=== PATIENT | male | born 1945 | race Caucasian/White ===

== ENCOUNTER 2024-05-12 08:40 | Inpatient (IN) | payer MEDICARE, OTHER, SELFPAY ==
[2024-05-12] VITALS (15 sets, daily range): BP systolic 100–138; BP diastolic 51–67; PULSE 6–62; RESP 16–28; TEMP 35.7–37.4; O2SAT 87–100; BMI 34.1; BMI 32.7
[2024-05-12] MEDS: 0.9% Normal Saline (1000mL) 1,000 ML 999 ML IV ×3 (09:24→13:31)
[2024-05-12] MEDS: Ceftriaxone 2 GM in 0.9% Normal Saline (50mL MB+) 50 ML IV (09:24)
[2024-05-12 09:34] LABS: Absolute Lymphocyte Count 1.67 X10^3/uL (0.83-4.51); Absolute Neutrophil Count 11.3 X10^3/uL (2.0-7.7); Basophil# 0.03 X10^3/uL; Basophil% 0.2 % (0-1); Eosinophil# 0.01 X10^3/uL; Eosinophils% 0.1 % (0-5); Hematocrit 37.4 % (40-54); Hemoglobin 11.9 g/dL (13.0-16.5); Lymphocyte # 1.67 X10^3/ul (0.83-4.51); Lymphocyte % 11.7 % (19-41); Mean Corp Hgb Conc 31.8 g/dL (32-36); Mean Corpuscular Hgb 28.4 pg (27.0-32.0); Mean Corpuscular Volume 89.3 fL (80-94); Monocyte# 1.23 X10^3/uL; Monocyte% 8.6 % (0-10); NRBC Flagged by Analyzer 0 % (0-5); Neutrophil # 11.32 X10^3/uL (2.7-7.7); Platelet Count 145 K/mm3 (150-450); RBC Distribution Width CV 15.3 % (11.6-14.6); RBC Distribution Width SD 50.4 fl (35.1-43.9); Red Blood Count 4.19 M/mm3 (4.6-6.2); White Blood Count 14.3 K/mm3 (4.4-11.0)
[2024-05-12 09:43] LABS: International Normalized Ratio 1.3; Prothrombin Time (Protime)PT. 16.1 SECONDS (11.7-14.9)
[2024-05-12 09:44] LABS: Partial Thromboplast Time 30.5 Seconds (24.1-36.2)
[2024-05-12 09:49] LABS: ALB/GLOB Ratio 0.8 RATIO (0.9-2.4); AST(SGOT) 28 U/L (15-37); Alanine Aminotransfer ALT/SGPT 60 U/L (16-61); Albumin, Serum 3.4 g/dL (3.2-5.0); Alkaline Phosphatase 77 U/L (45-117); Anion Gap 6 (5-15); BUN 22 mg/dL (7-18); BUN/Creat Ratio 25.4 RATIO (10-20); Calcium,Total 10.1 mg/dL (8.5-10.1); Chloride 105 mmol/L (98-107); Creatinine, Serum 0.87 mg/dL (0.70-1.30); EST Glomerular Filtration Rate 90 mL/min (>60); Est Glom Filt Rate - Afr Amer 109 mL/min (>60); Estimated Creatinine Clearance 89.35 ml/min; Globulin 4.3 g/dL (2.2-4.2); Glucose 167 mg/dL (74-106); Potassium 4.4 mmol/L (3.5-5.1); Protein, Total 7.7 g/dL (6.4-8.2); Sodium Level 138 mmol/L (136-145)
[2024-05-12 10:24] LABS: Lactic Acid 2.1 mmol/L (0.4-1.9)
[2024-05-12] MEDS: Azithromycin 500 MG in Dextrose 5%-Water (250mL Bag) 250 ML 250 MG IV (10:25)
[2024-05-12 11:04] LABS: Red Blood Cells-Urine 0 SEEN /hpf (0-5); Squamous Epithelial Cells - UA 0 SEEN /hpf (0-5)
[2024-05-12 11:08] LABS: Color, Urine Yellow (Yellow); Glucose, Dipstick Normal (Normal); Ketone-Dipstick Negative (Negative); Leukocyte Esterase-Dipstick 25 /ul (Negative); Nitrite-Dipstick Negative (Negative); Occult Blood-Urine Negative /ul (Negative); Protein-Dipstick 30 mg/dl (Negative); Urine Bilirubin Dipstick Negative (Negative); Urine Clarity Sl. Cloudy (Clear); Urine Urobilinogen Normal (Normal)
[2024-05-12 11:15] LABS: Bacteria 1+ /hpf (None Seen); Mucous, Urine 1+ /hpf (<or=2+); White Blood Cells 0-5 SEEN /hpf (0-5)
[2024-05-12 13:29] LABS: Reflex Lactate? Y
[2024-05-12] MEDS: Piperacil/Tazobactam 3.375 GM in 0.9% Normal Saline (50mL MB+) 50 ML IV ×2 (13:45→21:19)
[2024-05-12] MEDS: Vancomycin HCl 2,000 MG in 0.9% Normal Saline (500mL Bag) 500 ML 250 MG IV (13:45)
[2024-05-12] MEDS: 0.9% Normal Saline (1000mL) 1,000 ML 100 ML IV ×2 (14:30→23:25)
[2024-05-12 14:55] LABS: Lactic Acid 1.8 mmol/L (0.4-1.9)
[2024-05-12] MEDS: Gabapentin 600 MG Tablet PO (21:16)
[2024-05-12] MEDS: Menthol/Lanolin/Calamine/Znox 113 GM Tube 1 APPLIC TOPICAL (21:20)
[2024-05-12] MEDS: Miconazole Nitrate Cream 1 APPLIC TOPICAL (21:21)
[2024-05-12] MEDS: Ipratropium/Albuterol Sulfate 3 ML AMPUL.NEB INHALATION (22:00)
[2024-05-12] MEDS: Rivaroxaban 20 MG Tablet PO (22:02)
[2024-05-12] MEDS: Acetaminophen 325 MG Tablet 650 MG PO (22:18)
[2024-05-13] MEDS: Vancomycin HCl 1,500 MG in 0.9% Normal Saline (500mL Bag) 500 ML 250 MG IV ×2 (02:53→13:05)
[2024-05-13 03:00] VITALS: BP 128/68; PULSE 58; RESP 16; TEMP 36.6; O2SAT 99
[2024-05-13 06:16] LABS: Absolute Lymphocyte Count 2.04 X10^3/uL (0.83-4.51); Absolute Neutrophil Count 5.8 X10^3/uL (2.0-7.7); Basophil# 0.02 X10^3/uL; Basophil% 0.2 % (0-1); Eosinophil# 0.09 X10^3/uL; Hematocrit 40.6 % (40-54); Hemoglobin 12.6 g/dL (13.0-16.5); Lymphocyte # 2.04 X10^3/ul (0.83-4.51); Lymphocyte % 23.4 % (19-41); Mean Corpuscular Volume 93.3 fL (80-94); Mean Platelet Vol. 10.2 fl (6.2-12.0); Monocyte# 0.76 X10^3/uL; Monocyte% 8.7 % (0-10); NRBC Flagged by Analyzer 0 % (0-5); Neutrophil # 5.79 X10^3/uL (2.7-7.7); Neutrophil % 66.4 % (47-70); POSITIVE COUNT YES; Platelet Count 91 K/mm3 (150-450); RBC Distribution Width CV 15.4 % (11.6-14.6); RBC Distribution Width SD 53.1 fl (35.1-43.9); Red Blood Count 4.35 M/mm3 (4.6-6.2); White Blood Count 8.7 K/mm3 (4.4-11.0)
[2024-05-13 06:17] LABS: Differential Indicated SCAN CRITERIA MET
[2024-05-13] MEDS: Levothyroxine 88 MCG Tablet PO (06:32)
[2024-05-13] MEDS: Piperacil/Tazobactam 3.375 GM in 0.9% Normal Saline (50mL MB+) 50 ML IV ×3 (06:34→21:21)
[2024-05-13 06:55] LABS: Anion Gap 7 (5-15); BUN 20 mg/dL (7-18); BUN/Creat Ratio 31.9 RATIO (10-20); Calcium,Total 9.2 mg/dL (8.5-10.1); Chloride 112 mmol/L (98-107); Creatinine, Serum 0.63 mg/dL (0.70-1.30); EST Glomerular Filtration Rate 131 mL/min (>60); Est Glom Filt Rate - Afr Amer 158 mL/min (>60); Estimated Creatinine Clearance 93.58 ml/min; Glucose 113 mg/dL (74-106); Potassium 4.5 mmol/L (3.5-5.1); Sodium Level 140 mmol/L (136-145)
[2024-05-13 07:05] LABS: Platelet Estimate MOD DEC (ADEQ)
[2024-05-13 09:00] VITALS: BP 131/64; PULSE 60; RESP 18; TEMP 36.7; O2SAT 100
[2024-05-13] MEDS: Menthol/Lanolin/Calamine/Znox 113 GM Tube 1 APPLIC TOPICAL ×2 (09:46→20:06)
[2024-05-13] MEDS: Miconazole Nitrate Cream 1 APPLIC TOPICAL ×2 (09:47→20:06)
[2024-05-13] MEDS: Tamsulosin HCl 0.4 MG Capsule 0.8 MG PO (09:47)
[2024-05-13] MEDS: Gabapentin 600 MG Tablet PO ×4 (09:47→20:10)
[2024-05-13] MEDS: Lidocaine 5% Patch 1 PATCH TOPICAL (09:48)
[2024-05-13] MEDS: fentaNYL 25 MCG Patch TD (10:02)
[2024-05-13 15:00] VITALS: BP 112/67; PULSE 60; RESP 18; TEMP 36.4; O2SAT 93
[2024-05-13] MEDS: Rivaroxaban 20 MG Tablet PO (20:09)
[2024-05-13 20:50] VITALS: BP 126/76; PULSE 60; RESP 18; TEMP 36.6; O2SAT 95
[2024-05-13 22:12] VITALS: PULSE 60; RESP 23; O2SAT 98
[2024-05-14 02:03] LABS: Vancomycin, Trough Level 12.1 ug/mL (5.0-15.0)
[2024-05-14] MEDS: Vancomycin HCl 1,750 MG in 0.9% Normal Saline (500mL Bag) 500 ML 250 MG IV (02:21)
[2024-05-14 03:30] VITALS: BP 128/78; PULSE 57; RESP 18; TEMP 36.9; O2SAT 99
[2024-05-14] MEDS: Levothyroxine 88 MCG Tablet PO (03:58)
[2024-05-14] MEDS: Piperacil/Tazobactam 3.375 GM in 0.9% Normal Saline (50mL MB+) 50 ML IV (05:42)
[2024-05-14 07:21] VITALS: O2SAT 94
[2024-05-14 09:00] VITALS: BP 123/64; PULSE 60; RESP 18; TEMP 36.6; O2SAT 96
[2024-05-14] MEDS: Menthol/Lanolin/Calamine/Znox 113 GM Tube 1 APPLIC TOPICAL (09:02)
[2024-05-14] MEDS: Gabapentin 600 MG Tablet PO (09:03)
[2024-05-14] MEDS: Tamsulosin HCl 0.4 MG Capsule 0.8 MG PO (09:03)
[2024-05-14] MEDS: Miconazole Nitrate Cream 1 APPLIC TOPICAL (09:04)
[2024-05-14 09:34] VITALS: BP 123/69; PULSE 60; RESP 18; TEMP 36.6; O2SAT 96
[2024-05-14] MEDS: levoFLOXacin 750 MG Tablet PO (10:12)
[2024-05-14] MEDS: Furosemide 20 MG Tablet PO (10:12)
== END 2024-05-14 11:32 | disposition skilled nursing facility (03) | DRG 871 ==
LOC: ED 11:21 → PCU 11:27
PROVIDERS: Admitting Provider Internal Medicine; Emergency Provider Emergency Medicine; PCP Family Medicine; Visit Provider Internal Medicine
DX: A41.9 Sepsis, unspecified organism (principal); G93.41 Metabolic encephalopathy; J15.9 Unspecified bacterial pneumonia; J44.0 Chronic obstructive pulmonary disease with (acute) lower respiratory infection; Z93.3 Colostomy status; R65.20 Severe sepsis without septic shock; K59.81 Ogilvie syndrome; Z87.891 Personal history of nicotine dependence; G89.29 Other chronic pain; R09.02 Hypoxemia; R73.9 Hyperglycemia, unspecified
CPT/HCPCS: 36415; 51702; 71045; 71046; 80048; 80053; 80202; 81001; 83605; 85025; 85610; 85730; 87040; 87070; 87086; 87205; 87449; 87631; 93005; 94640; 94660; 94668; 97162; 97166; 99252; 99285; J7030; J7040; A4216; G0463; J0696

== ENCOUNTER 2024-05-19 14:44 | Inpatient (IN) | payer MEDICARE, OTHER, SELFPAY ==
[2024-05-19] VITALS (16 sets, daily range): BP systolic 106–143; BP diastolic 48–85; PULSE 60–66; RESP 10–21; TEMP 36.5–38.2; O2SAT 88–98; BMI 31.9
--- NOTE | 2024-05-19 14:51 | EKG12_ITS ---
Test Reason : Blood Pressure : */* mmHG Vent. Rate : 60 BPM Atrial Rate : 441 BPM P-R Int : * ms QRS Dur : 166 ms QT Int : 498 ms P-R-T Axes : * 132 88 degrees QTcB Int : 498 ms Ventricular-paced rhythm Abnormal ECG Confirmed by CATALINA REYES, OLIVIA ([id number]), metropolitan editor JATIN CAMARENA ([id number]) on 05/22/2024 10:31:06 AM Referred By: Confirmed By: OLIVIA ARNOLD MD
--- NOTE | 2024-05-19 15:05 | EX.ED.DYSGE1 ---
HPI History of Present Illness Chief Complaint: Shortness of Breath Narrative Narrative: Patient is a 79-year-old male With a past medical history of fibrillation on Xarelto, hypertension, CVA, hypothyroidism, PE who presented to the emergency department the chief complaint of cough, fever and shortness of breath. Patient states that he has not been feeling well and recently last week he was diagnosed with pneumonia. He states that he completed course of antibiotics that he was prescribed. He states that he was admitted here and then [facility]. He states that when he woke up today he was not feeling his normal self and at the facility they noted that his oxygen level was low which prompted them to send him here for further evaluation management. [facility] Medical History Atrial fibrillation HTN (hypertension) Hyperlipidemia CVA (cerebral vascular accident) Hypothyroidism Pulmonary embolism Diabetes Emphysema lung Cardiomyopathy Malignant neoplasm of base of tongue Home Medications ?Medication ?Instructions ?Recorded ?Last Taken ?Type acetaminophen 500 mg capsule 1,000 mg PO Q6H pain 05/12/24 Unknown History furosemide 20 mg tablet 20 mg PO QODAY edema 05/12/24 Unknown History gabapentin 600 mg tablet 600 mg PO 4X/DAY neuropathy 05/12/24 Unknown History ipratropium 0.5 mg-albuterol 3 mg 3 ml inhalation Q4H PRN shortness 05/12/24 Unknown History (2.5 mg base)/3 mL nebulization of breath or wheezing soln levothyroxine 88 mcg tablet 88 mcg PO DAILY thyroid 05/12/24 Unknown History lidocaine 4 % topical patch 1 patch topical Q24H pain 05/12/24 Unknown History (Salonpas (lidocaine)) metoprolol succinate 25 mg 12.5 mg PO DAILY heart rate 05/12/24 Unknown History tablet,extended release 24 hr miconazole nitrate 2 % topical 1 applic topical BID yeast 05/12/24 Unknown History powder (Antifungal (miconazole)) pantoprazole 40 mg tablet,delayed 40 mg PO DAILY acid reflux 05/12/24 Unknown History release polyvinyl alcohol-povidone (PF) 1 drp EACH EYE Q60M PRN dry eye(s) 05/12/24 Unknown History 1.4 %-0.6 % eye drops in a dropperette rivaroxaban 20 mg tablet (Xarelto) 20 mg PO QHS blood thinner 05/12/24 Unknown History tamsulosin 0.4 mg capsule 0.8 mg PO DAILY prostate 05/12/24 Unknown History fentanyl 25 mcg/hr transdermal 25 mcg transdermal Q3D 3 days #1 ea 05/14/24 Unknown Rx patch levofloxacin 750 mg tablet 750 mg PO DAILY #1 TAB 05/14/24 Unknown Rx azithromycin 250 mg tablet 250 mg PO DAILY 05/19/24 Unknown History buprenorphine HCl 300 mcg buccal 300 mcg buccal Q12H 05/19/24 Unknown History film (Belbuca) Allergy/AdvReac Type Severity Reaction Status Date / Time No Known Allergies Allergy Verified 05/12/24 12:27 Social History Smoking Status: Former smoker ROS ROS ED ROS Narrative Constitutional: Complains of fever and chills denies any headaches, lightness, dizziness Cardiovascular: Denies chest pain or palpitations Respiratory: Complains of cough with increased sputum production as well as shortness of breath Abdomen: Denies any abdominal pain nausea vomit diarrhea states he does have colostomy with normal output : Denies any urinary symptoms Neurological: Denies any numbness, wheeze, tingling Musculoskeletal: Denies back pain Skin: Denies rashes or lesions EXAM Physical Exam Narrative Exam Narrative: General: Patient was lying in bed rest comfortably did not appear to be acute distress Head: Atraumatic, normocephalic Eyes: PERRL by, EOMI by, no conjunctival injection noted Neck: Soft, supple, trachea midline Cardiovascular: Regular rate and rhythm no murmurs gallops rubs noted Respiratory: Patient has crackles noted bilaterally at the bases of his lungs no wheezing noted Abdomen: Soft, nondistended, nontender to palpation, colostomy in place with adequate output stoma pink Extremities: +5/5 strength noted in the bilateral upper and lower extremities, no pedal edema on exam, radial pulses +2/4 in the bilateral upper extremities Neurological: Patient following commands knew that he was at [facility] there is 2023 Skin: Warm, dry, intact Const Vital Signs: 05/19/24 14:45 05/19/24 14:50 05/19/24 14:52 Temperature 100.7 F H 100.7 F H Temperature Source Oral Oral Pulse Rate 65 62 Respiratory Rate 10 L 19 H Respiratory Effort Short of Breath Respiratory Depth Normal Respiratory Pattern Normal Blood Pressure 128/70 H 125/60 H Blood Pressure Mean 89 81 Pulse Ox 92 94 Oxygen Delivery Method Room Air Room Air Room Air Oxygen Flow Rate (L/min) 05/19/24 14:54 05/19/24 14:58 05/19/24 15:01 Temperature Temperature Source Pulse Rate Respiratory Rate Respiratory Effort Respiratory Depth Respiratory Pattern Blood Pressure Blood Pressure Mean Pulse Ox 93 88 94 Oxygen Delivery Method Room Air Room Air Nasal Cannula Oxygen Flow Rate (L/min) 2 05/19/24 15:50 05/19/24 16:00 05/19/24 17:00 Temperature 100.7 F H 99.7 F H 99.7 F H Temperature Source Oral Oral Oral Pulse Rate 60 62 60 Respiratory Rate 21 H 12 18 Respiratory Effort Respiratory Depth Respiratory Pattern Blood Pressure 114/48 L 114/48 L 143/85 H Blood Pressure Mean 70 70 104 Pulse Ox 95 93 95 Oxygen Delivery Method Nasal Cannula Nasal Cannula Nasal Cannula Oxygen Flow Rate (L/min) 2 2 2 05/19/24 18:00 05/19/24 18:00 Temperature 99.7 F H Temperature Source Oral Pulse Rate 60 Respiratory Rate 16 Respiratory Effort Respiratory Depth Respiratory Pattern Blood Pressure 106/55 L Blood Pressure Mean 72 Pulse Ox 88 95 Oxygen Delivery Method Nasal Cannula Nasal Cannula Oxygen Flow Rate (L/min) 2 2 MDM MDM MDM Narrative Medical decision making narrative: Patient is a 79-year-old male who presented to the emerged part with chief complaint of cough, shortness of breath and hypoxia. Patient will have a workup performed here on the differential diagnose includes but not limited to pneumonia, ACS, UTI, empyema. Once workup is obtained reviewed he will be reevaluated. Patient be given 30 cc/kg bolus of IV fluids. Patient discharge summary from 05/14/2024 was reviewed and patient was initially brought here from the rehab service that he was added secondary to hypoxia and shortness of breath. 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 He was found to have bilateral pneumonia was treated with IV antibiotics and was ultimately discharged back to the facility. Patient CBC reviewed and showed no evidence leukocytosis white blood count normal 5.8, hemoglobin 10.9, platelet count was noted to be 119. Patient's INR was 1.7, PT of 19.7 was on Xarelto, sodium was 135, potassium low at 4.1, creatinine normal at 0.70. Patient's proBNP elevated to 33, troponin was notably normal at 41. Patient's EKG reviewed and independently interpreted by myself showed a ventricular paced rhythm with a rate of 60 bpm no Sgarbossa criteria met. Patient's AST and ALT were normal at 23 and 50 respectively. Patient's urinalysis reviewed showed 100 leukocyte esterase 10-25 white blood cells but no bacteria noted this will be sent for culture. Given the patient has a fever and no identifiable source of infection will cover with Rocephin for now and follow-up on urine culture. Patient's chest x-ray reviewed and showed stable findings of mild interstitial congestion/edema. Patient did desaturate while on oxygen to 88%. We will admit the patient to the hospital for likely CHF exacerbation as he has 2+ pitting edema also in the bilateral lower extremities he will be given 40 mg of IV Lasix and we will hold off on further IV fluids. Patient's case will be discussed with hospitalist. Discussed case with hospitalist Dr. Griffin who accept patient for admission. Patient was notified with all question concerns answered at bedside. Lab Data Labs: Laboratory Results - last 24 hr 05/19/24 05/19/24 15:26 16:25 WBC 5.8 RBC 3.83 L Hgb 10.9 L Hct 34.2 L MCV 89.3 MCH 28.5 MCHC 31.9 L RDW Std Deviation 50.0 H RDW Coeff of Michelle 15.3 H Plt Count 119 L MPV 9.6 Immature Gran % (Auto) 0.500 Neut % (Auto) 72.9 H Lymph % (Auto) 19.1 [place] % (Auto) 7.1 Eos % (Auto) 0.2 Baso % (Auto) 0.2 Absolute Neuts (auto) 4.2 Absolute Lymphs (auto) 1.11 Nucleated RBC % 0 PT 19.7 H INR 1.7 APTT 40.2 H Sodium 135 L Potassium 4.1 Chloride 105 Carbon Dioxide 26.0 Anion Gap 4 L BUN 21 H Creatinine 0.70 Estim Creat Clear Calc 119.84 Est GFR (MDRD) Af Amer 139 Est GFR (MDRD) Non-Af 115 BUN/Creatinine Ratio 29.9 H Glucose 110 H Lactic Acid 1.7 Calcium 9.8 Total Bilirubin 1.40 H AST 23 ALT 50 Alkaline Phosphatase 86 Troponin I High Sens 41 B-Natriuretic Peptide 233.1 H Total Protein 6.9 Albumin 2.9 L Globulin 4.0 Albumin/Globulin Ratio 0.7 L Urine Color Yellow Urine Clarity Clear Urine pH 5.0 Ur Specific [place] 1.025 Urine Protein 30 H Urine Glucose (UA) Normal Urine Ketones Negative Urine Occult Blood Negative Urine Nitrite Negative Urine Bilirubin Negative Urine Urobilinogen Normal Ur Leukocyte Esterase 100 H Urine RBC 0 SEEN Urine WBC 10-25 SEEN Ur Squamous Epith Cells 0 SEEN Urine Bacteria 0 SEEN Urine Mucus 1+ Radiography Diagnostic Testing: Clinical Impression(s) from Imaging Studies Chest X-Ray 05/19/24 15:35 IMPRESSION: Stable findings of mild interstitial edema/congestive failure. Follow-up chest imaging to resolution recommended. No acute or emergent finding. Electronically Signed: Omar Boles MD at 15:47 EST Reading Location ID and State: [address] [place] [address] , Service support , Discharge Plan Triage Chief Complaint: Shortness of Breath ED Provider: Haja Ramachandran Dx/Rx/DC Orders Clinical Impression: Hypoxia, CHF (congestive heart failure) Prescriptions: No Action furosemide 20 mg tablet 20 mg PO QODAY ipratropium-albuterol 0.5 mg-3 mg(2.5 mg base)/3 mL solution for nebulization 3 ml inhalation Q4H PRN (Reason: shortness of breath or wheezing) acetaminophen 500 mg capsule 1,000 mg PO Q6H polyvinyl alcohol-povidon(PF) 1.4-0.6 % dropperette 1 drp EACH EYE Q60M PRN (Reason: dry eye(s)) lidocaine [Salonpas (lidocaine)] 4 % adhesive patch,medicated 1 patch topical Q24H Patient Comments: nay knees, rt hip, neck, lower back Rx Instructions: may leave on for up to 12 hrs miconazole nitrate [Antifungal (miconazole)] 2 % powder 1 applic topical BID Patient Comments: groin gabapentin 600 mg tablet 600 mg PO 4X/DAY pantoprazole 40 mg tablet,delayed release (DR/EC) 40 mg PO DAILY tamsulosin 0.4 mg capsule 0.8 mg PO DAILY metoprolol succinate 25 mg tablet extended release 24 hr 12.5 mg PO DAILY Xarelto 20 mg tablet 20 mg PO QHS levothyroxine 88 mcg tablet 88 mcg PO DAILY fentanyl 25 mcg/hr Patch 72 Hour 25 mcg transdermal Q3D 3 Days Qty: 1 0RF levofloxacin 750 mg tablet 750 mg PO DAILY Qty: 1 0RF Rx Instructions: Start on 05/15/2024-administer for 5 days azithromycin 250 mg tablet 250 mg PO DAILY Rx Instructions: start on day 2 of therapy buprenorphine HCl [Belbuca] 300 mcg film 300 mcg buccal Q12H Primary Care Provider: Primitivo Calle Referrals: Primitivo Calel MD [Primary Care Provider] - Print Language: Libyan Disposition Disposition: Acute Care Hospital [facility]
[2024-05-19] MEDS: Acetaminophen 500 MG Tablet 1000 MG PO (15:11)
--- NOTE | 2024-05-19 15:35 | RAD_ITS ---
STUDY: X-RAY CHEST REASON FOR EXAM: Male, 79 years old. Shortness of breath. Cough. TECHNIQUE: Frontal and lateral views of the chest. COMPARISON: May 14, 2024 FINDINGS: Stable cardiomegaly, dual lead cardiac pacer, aortic tortuosity, prominent central pulmonary arteries, mild hyperinflation, diffuse interstitial pattern and bilateral pleural effusions. No change in diffuse thoracic osteopenia and mild spondylosis. No abnormality of the visualized soft tissue structures of the upper abdomen. RAD/Chest PA and Lateral IMPRESSION: Stable findings of mild interstitial edema/congestive failure. Follow-up chest imaging to resolution recommended. No acute or emergent finding. Electronically Signed: Omar Boles MD at 15:47 EST ,
[2024-05-19 15:40] LABS: Absolute Lymphocyte Count 1.11 X10^3/uL (0.83-4.51); Absolute Neutrophil Count 4.2 X10^3/uL (2.0-7.7); Basophil# 0.01 X10^3/uL; Basophil% 0.2 % (0-1); Eosinophil# 0.01 X10^3/uL; Eosinophils% 0.2 % (0-5); Hematocrit 34.2 % (40-54); Hemoglobin 10.9 g/dL (13.0-16.5); Lymphocyte # 1.11 X10^3/ul (0.83-4.51); Lymphocyte % 19.1 % (19-41); Mean Corp Hgb Conc 31.9 g/dL (32-36); Mean Corpuscular Hgb 28.5 pg (27.0-32.0); Mean Corpuscular Volume 89.3 fL (80-94); Mean Platelet Vol. 9.6 fl (6.2-12.0); Monocyte# 0.41 X10^3/uL; Monocyte% 7.1 % (0-10); NRBC Flagged by Analyzer 0 % (0-5); Neutrophil # 4.24 X10^3/uL (2.7-7.7); Neutrophil % 72.9 % (47-70); Platelet Count 119 K/mm3 (150-450); RBC Distribution Width CV 15.3 % (11.6-14.6); Red Blood Count 3.83 M/mm3 (4.6-6.2); White Blood Count 5.8 K/mm3 (4.4-11.0)
[2024-05-19] MEDS: 0.9% Normal Saline (1000mL) 1,000 ML 999 ML IV (15:47)
[2024-05-19 15:48] LABS: International Normalized Ratio 1.7; Prothrombin Time (Protime)PT. 19.7 SECONDS (11.7-14.9)
[2024-05-19 15:49] LABS: Partial Thromboplast Time 40.2 Seconds (24.1-36.2)
[2024-05-19 15:55] LABS: ALB/GLOB Ratio 0.7 RATIO (0.9-2.4); AST(SGOT) 23 U/L (15-37); Alanine Aminotransfer ALT/SGPT 50 U/L (16-61); Albumin, Serum 2.9 g/dL (3.2-5.0); Alkaline Phosphatase 86 U/L (45-117); Anion Gap 4 (5-15); BUN 21 mg/dL (7-18); BUN/Creat Ratio 29.9 RATIO (10-20); Calcium,Total 9.8 mg/dL (8.5-10.1); Chloride 105 mmol/L (98-107); EST Glomerular Filtration Rate 115 mL/min (>60); Est Glom Filt Rate - Afr Amer 139 mL/min (>60); Estimated Creatinine Clearance 119.84 ml/min; Glucose 110 mg/dL (74-106); Potassium 4.1 mmol/L (3.5-5.1); Protein, Total 6.9 g/dL (6.4-8.2); Sodium Level 135 mmol/L (136-145); Troponin-I HS 41 pg/mL (3.0-78.0)
[2024-05-19 16:01] LABS: Lactic Acid 1.7 mmol/L (0.4-1.9)
[2024-05-19 16:34] LABS: Bacteria 0 SEEN /hpf (None Seen); Red Blood Cells-Urine 0 SEEN /hpf (0-5); Squamous Epithelial Cells - UA 0 SEEN /hpf (0-5)
--- NOTE | 2024-05-19 16:55 | ED.RN ---
This RN spoke with Nurse Thapa at the [facility] and updated her on this patient.
[2024-05-19 17:19] LABS: Color, Urine Yellow (Yellow); Glucose, Dipstick Normal (Normal); Ketone-Dipstick Negative (Negative); Leukocyte Esterase-Dipstick 100 /ul (Negative); Nitrite-Dipstick Negative (Negative); Occult Blood-Urine Negative /ul (Negative); Protein-Dipstick 30 mg/dl (Negative); Specific Gravity, Urine 1.025 (1.002-1.030); Urine Bilirubin Dipstick Negative (Negative); Urine Clarity Clear (Clear); Urine Urobilinogen Normal (Normal)
[2024-05-19 17:22] LABS: BNP,B-Type NATRIURETIC PEPTIDE 233.1 pg/mL (0-100)
[2024-05-19 17:44] LABS: Mucous, Urine 1+ /hpf (<or=2+); White Blood Cells 10-25 SEEN /hpf (0-5)
[2024-05-19] MEDS: Furosemide 40 MG/4 ML Vial IV (18:09)
[2024-05-19] MEDS: Ceftriaxone 1 GM/50 ML BAG IV (18:16)
--- NOTE | 2024-05-19 19:20 | HP.PCM.HOS_ITS ---
HPI - General General Date of Admission: 05/19/24 Date of Service: 05/19/24 Chief Complaint: Increased SOB HPI Narrative SONI COLLINS, kalli a 79 M w/ hx BPH, GERD, NARCISO w/ cpap, recent ostomy due Zakia's syndrome, hypothyroidism, PE, A-fib, CVA who presented [facility] ED 05/19/2024 with shortness of breath, decreased O2 sat, fever, cough. He was recently admitted earlier this month for sepsis secondary to pneumonia. He improved and was discharged back to the [facility] 05/14/2024. Over the past several days multiple people have been sick with upper respiratory like symptoms and he has also had progressively worsening shortness of breath, cough and fever over the past week. In the ED patient 88% on 2 L despite not using oxygen regularly, also had slightly elevated BNP of 233 on chest x-ray suggestive of fluid overload as well as peripheral edema. Patient was also febrile with a temperature of 100.7. COVID was negative, white blood cell count within normal limits and no other infectious etiology identified. Was felt the patient did have component of fluid overload so he was given 40IV lasix. Hospitalist contacted for admission. Patient evaluated with at bedside. 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 Admitted earlier this month for pneumonia and had been doing fairly well but over the past several days has had a fever with increased shortness of breath and cough and was found to be hypoxic at the [facility]. Patient report several other people have also developed URI symptoms and is felt that may be a virus is currently going around. Patient reports some nasal congestion, no abdominal pain, does have swelling in his lower extremities bilaterally does not feel his Lasix have been particularly helpful with this. ROS otherwise fairly unremarkable [facility] Medical History (Updated 05/19/24 @ 19:20 by Mara Alejandro) Atrial fibrillation Cardiomyopathy COPD (chronic obstructive pulmonary disease) CPAP (continuous positive airway pressure) dependence CVA (cerebral vascular accident) Diabetes Emphysema lung Former smoker HTN (hypertension) Hyperlipidemia Hypothyroidism Kidney stones Malignant neoplasm of base of tongue On home oxygen therapy Pacemaker Pulmonary embolism TIA (transient ischemic attack) Home Medications ?Medication ?Instructions ?Recorded ?Last Taken ?Type acetaminophen 500 mg capsule 1,000 mg PO Q6H pain 05/12/24 Unknown History furosemide 20 mg tablet 20 mg PO QODAY edema 05/12/24 Unknown History gabapentin 600 mg tablet 600 mg PO 4X/DAY neuropathy 05/12/24 Unknown History ipratropium 0.5 mg-albuterol 3 mg 3 ml inhalation Q4H PRN shortness 05/12/24 Unknown History (2.5 mg base)/3 mL nebulization of breath or wheezing soln levothyroxine 88 mcg tablet 88 mcg PO DAILY thyroid 05/12/24 Unknown History lidocaine 4 % topical patch 1 patch topical Q24H pain 05/12/24 Unknown History (Salonpas (lidocaine)) metoprolol succinate 25 mg 12.5 mg PO DAILY heart rate 05/12/24 Unknown History tablet,extended release 24 hr miconazole nitrate 2 % topical 1 applic topical BID yeast 05/12/24 Unknown History powder (Antifungal (miconazole)) pantoprazole 40 mg tablet,delayed 40 mg PO DAILY acid reflux 05/12/24 Unknown History release polyvinyl alcohol-povidone (PF) 1 drp EACH EYE Q60M PRN dry eye(s) 05/12/24 Unknown History 1.4 %-0.6 % eye drops in a dropperette rivaroxaban 20 mg tablet (Xarelto) 20 mg PO QHS blood thinner 05/12/24 Unknown History tamsulosin 0.4 mg capsule 0.8 mg PO DAILY prostate 05/12/24 Unknown History fentanyl 25 mcg/hr transdermal 25 mcg transdermal Q3D 3 days #1 ea 05/14/24 Unknown Rx patch levofloxacin 750 mg tablet 750 mg PO DAILY #1 TAB 05/14/24 Unknown Rx azithromycin 250 mg tablet 250 mg PO DAILY 05/19/24 Unknown History buprenorphine HCl 300 mcg buccal 300 mcg buccal Q12H 05/19/24 Unknown History film (Belbuca) Allergy/AdvReac Type Severity Reaction Status Date / Time No Known Allergies Allergy Verified 05/12/24 12:27 Social History Smoking Status: Former smoker ROS ROS Narrative General: Has had fever over the past couple of days HENT: Denies headache, has had some nasal congestion EYES: Denies changes in vision Resp: Increased cough, increased shortness of breath Cardiac: Denies chest pain GI: Denies abdominal pain, has ostomy, denies nausea/vomiting : Denies changes in urination Extremity: Some lower extremities MSK: Denies weakness Neuro: Denies any numbness/tingling Heme: Denies any bleeding or bruising Skin: Denies rashes Psychiatric: No complaints voiced Vital Signs Vital Signs Vital Signs: 05/19/24 14:45 05/19/24 14:50 05/19/24 14:52 Temperature 100.7 F H 100.7 F H Temperature Source Oral Oral Pulse Rate 65 62 Respiratory Rate 10 L 19 H Respiratory Effort Short of Breath Respiratory Depth Normal Respiratory Pattern Normal Blood Pressure 128/70 H 125/60 H Blood Pressure Mean 89 81 Pulse Ox 92 94 Oxygen Delivery Method Room Air Room Air Room Air Oxygen Flow Rate (L/min) 05/19/24 14:54 05/19/24 14:58 05/19/24 15:01 Temperature Temperature Source Pulse Rate Respiratory Rate Respiratory Effort Respiratory Depth Respiratory Pattern Blood Pressure Blood Pressure Mean Pulse Ox 93 88 94 Oxygen Delivery Method Room Air Room Air Nasal Cannula Oxygen Flow Rate (L/min) 2 05/19/24 15:50 05/19/24 16:00 05/19/24 17:00 Temperature 100.7 F H 99.7 F H 99.7 F H Temperature Source Oral Oral Oral Pulse Rate 60 62 60 Respiratory Rate 21 H 12 18 Respiratory Effort Respiratory Depth Respiratory Pattern Blood Pressure 114/48 L 114/48 L 143/85 H Blood Pressure Mean 70 70 104 Pulse Ox 95 93 95 Oxygen Delivery Method Nasal Cannula Nasal Cannula Nasal Cannula Oxygen Flow Rate (L/min) 2 2 2 05/19/24 18:00 05/19/24 18:00 05/19/24 18:56 Temperature 99.7 F H 99.1 F Temperature Source Oral Pulse Rate 60 62 Respiratory Rate 16 18 Respiratory Effort Respiratory Depth Respiratory Pattern Blood Pressure 106/55 L 119/66 Blood Pressure Mean 72 83 Pulse Ox 88 95 95 Oxygen Delivery Method Nasal Cannula Nasal Cannula Oxygen Flow Rate (L/min) 2 2 05/19/24 19:00 Temperature 99.1 F Temperature Source Oral Pulse Rate 62 Respiratory Rate 18 Respiratory Effort Respiratory Depth Respiratory Pattern Blood Pressure 119/66 Blood Pressure Mean 83 Pulse Ox 97 Oxygen Delivery Method Nasal Cannula Oxygen Flow Rate (L/min) 2 Weight Weight: 117 kg Body Mass Index (BMI) 0.1 Physical Exam Narrative General: Alert, oriented, no apparent distress HEENT: Atraumatic, normocephalic Eyes: Anicteric, normal conjunctiva, extraocular movements grossly intact Neck: Supple Respiratory: Crackles at the bases, some increased work of breathing Cardiovascular: Regular rate and rhythm GI: Soft, nontender, nondistended, ostomy in place Extremities: 2+ bilateral lower extremity pitting edema Musculoskeletal: Moving all extremities Neuro: No overt focal neurological deficits Skin: No rashes appreciated Psych: Cooperative Results Lab / Micro Data 05/19/24 15:26 05/19/24 15:26 Labs: Laboratory Results - last 24 hr 05/19/24 15:26: WBC 5.8, RBC 3.83 L, Hgb 10.9 L, Hct 34.2 L, MCV 89.3, MCH 28.5, MCHC 31.9 L, RDW Std Deviation 50.0 H, RDW Coeff of Michelle 15.3 H, Plt Count 119 L, MPV 9.6, Immature Gran % (Auto) 0.500, Neut % (Auto) 72.9 H, Lymph % (Auto) 19.1, [place] % (Auto) 7.1, Eos % (Auto) 0.2, Baso % (Auto) 0.2, Absolute Neuts (auto) 4.2, Absolute Lymphs (auto) 1.11, Nucleated RBC % 0, PT 19.7 H, INR 1.7, APTT 40.2 H, Sodium 135 L, Potassium 4.1, Chloride 105, Carbon Dioxide 26.0, A nion Gap 4 L, BUN 21 H, Creatinine 0.70, Estim Creat Clear Calc 119.84, Est GFR (MDRD) Af Amer 139, Est GFR (MDRD) Non-Af 115, BUN/Creatinine Ratio 29.9 H, G lucose 110 H, Lactic Acid 1.7, Calcium 9.8, Total Bilirubin 1.40 H, AST 23, ALT 50, Alkaline Phosphatase 86, Troponin I High Sens 41, B-Natriuretic Peptide 233.1 H, Total Protein 6.9, Albumin 2.9 L, Globulin 4.0, Albumin/Globulin Ratio 0.7 L 05/19/24 16:25: Urine Color Yellow, Urine Clarity Clear, Urine pH 5.0, Ur Specific [place] 1.025, Urine Protein 30 H, Urine Glucose (UA) Normal, Urine Ketones Negative, Urine Occult Blood Negative, Urine Nitrite Negative, Urine Bilirubin Negative, Urine Urobilinogen Normal, Ur Leukocyte Esterase 100 H, Urine RBC 0 SEEN, Urine WBC 10-25 SEEN, Ur Squamous Epith Cells 0 SEEN, Urine Bacteria 0 SEEN, Urine Mucus 1+ Micro: Microbiology 05/19/24 15:26 Mucosa - Nose SARS-CoV-2, Influenza & RSV (PCR) - Final Imaging Radiology Impression Chest X-Ray 05/19/24 15:35 IMPRESSION: Stable findings of mild interstitial edema/congestive failure. Follow-up chest imaging to resolution recommended. No acute or emergent finding. Electronically Signed: Omar Boles MD at 15:47 EST , Assessment & Plan Assessment/Plan (1) Hypoxia: PLAN: Plan # Hypoxia, suspect component of fluid overload and possible viral etiology illness as well -Admit to telemetry -BNP 233 -CXR concerning for some vascular congestion -Continue IV lasix -Will order echo -Daily weights, I's and O's -Fluid restriction, heart healthy diet -Given patient's increased cough and fevers well with multiple sick contacts suspect that there is viral component, will check respiratory panel and continue nebs -Additionally patient with 1 more day of antibiotics for his pneumonia from discharge 05/14 # 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
--- NOTE | 2024-05-19 21:42 | ECHOCS_ITS ---
Reason For Study: CHF Procedure This was a 2D Doppler, Color Flow transthoracic echocardiogram. The study was technically difficult. Contrast injection was performed. Exam performed portable in patient room. Left Ventricle Normal left ventricle. The estimated ejection fraction is 55-60 %. Right Ventricle Normal right ventricle. The right ventricle is normal in size, function, and thickness. Normal systolic function. Atria Normal left atrium. Normal right atrium. Mitral Valve The mitral valve is structurally normal. No prolapse or stenosis seen. Mild (1+) mitral valve insufficiency. Tricuspid Valve Normal tricuspid valve. Mild tricuspid valve insufficiency. Aortic Valve Trisinus/trileaflet aortic valve. Pulmonic Valve The pulmonic valve is not well visualized. Great Vessels Normal aortic root. Pericardium/Pleural No pericardial effusion. Medication Diluted definity 2ml given slow IV push to enhance endocardial definition. MMode/2D Measurements & Calculations LVIDd: 5.5 cm IVSd: 1.4 cm Ao root diam: 3.3 cm LVIDs: 3.8 cm LVPWd: 1.9 cm FS: 30.9 % asc Aorta Diam: 3.7 cm LAV(MOD-bp): 60.8 ml LVAd ap4: 36.3 cm2 LAV(MOD-bp) Indexed: 26.1 ml/m2 LVLd ap4: 8.6 cm LAV(MOD-sp2): 27.6 ml EDV(MOD-sp4): 123.1 ml LAV(MOD-sp4): 87.0 ml EDV(sp4-el): 129.8 ml LVAs ap4: 28.9 cm2 LVLs ap4: 9.6 cm ESV(MOD-sp4): 72.5 ml ESV(sp4-el): 74.3 ml EF(MOD-sp4): 41.1 % EF(sp4-el): 42.7 % SV(MOD-sp4): 50.6 ml SV(sp4-el): 55.5 ml LA A4 area: 29.2 cm2 SI(MOD-sp4): 21.7 ml/m2 LA dimension(2D): 4.4 cm RA A4 area: 25.4 cm2 Doppler Measurements & Calculations MV E max daysi: 84.7 cm/sec Ao V2 max: 118.6 cm/sec LV V1 max: 115.0 cm/sec Ao max P.7 mmHg LV V1 max P.4 mmHg Ao V2 mean: 74.6 cm/sec LV V1 mean P.6 mmHg Ao mean P.8 mmHg LV V1 mean: 71.9 cm/sec Ao V2 VTI: 20.0 cm LV V1 VTI: 20.4 cm AV (velocity ratio): 1.0 PA V2 max: 115.5 cm/sec TR max daysi: 291.3 cm/sec PA V2 mean: 73.4 cm/sec TR max P.0 mmHg ECHO/Echo Complete W/ Contrast Interpretation Summary The estimated ejection fraction is 55-60 %. Pacemaker lead was noted on the right side. Ordering Physician: Tabitha Griffin Referring Physician: BILLY XIONG Performed By: Elisabet Avalos RCS
[2024-05-19] MEDS: Ipratropium/Albuterol Sulfate 3 ML AMPUL.NEB INHALATION (23:31)
[2024-05-19] MEDS: Buprenorphine HCl 2 MG TAB.SUBL SL (23:53)
[2024-05-19] MEDS: Gabapentin 600 MG Tablet PO (23:53)
[2024-05-19] MEDS: guaiFENesin 1,200 MG Tablet 1200 MG PO (23:53)
[2024-05-19] MEDS: Nystatin Powder 15gm Bottle 1 APPLIC TOPICAL (23:53)
[2024-05-20] VITALS (13 sets, daily range): BP systolic 107–121; BP diastolic 62–72; PULSE 59–85; RESP 16–22; TEMP 36.2–37.3; O2SAT 91–100; BMI 31.9
[2024-05-20] MEDS: Rivaroxaban 20 MG Tablet PO ×2 (01:29→17:35)
[2024-05-20 02:03] LABS: Bedside Glucose 170 mg/dL (74-106)
[2024-05-20] MEDS: Levothyroxine 88 MCG Tablet PO (06:03)
[2024-05-20 07:00] LABS: Absolute Lymphocyte Count 1.15 X10^3/uL (0.83-4.51); Absolute Neutrophil Count 2.6 X10^3/uL (2.0-7.7); Hematocrit 32.6 % (40-54); Hemoglobin 10.1 g/dL (13.0-16.5); Lymphocyte # 1.15 X10^3/ul (0.83-4.51); Lymphocyte % 28.3 % (19-41); Mean Corpuscular Hgb 27.7 pg (27.0-32.0); Mean Corpuscular Volume 89.3 fL (80-94); Mean Platelet Vol. 10.6 fl (6.2-12.0); Monocyte# 0.28 X10^3/uL; Monocyte% 6.9 % (0-10); NRBC Flagged by Analyzer 0 % (0-5); Neutrophil # 2.61 X10^3/uL (2.7-7.7); Neutrophil % 64.3 % (47-70); Platelet Count 116 K/mm3 (150-450); RBC Distribution Width CV 15.1 % (11.6-14.6); RBC Distribution Width SD 50.3 fl (35.1-43.9); Red Blood Count 3.65 M/mm3 (4.6-6.2); White Blood Count 4.1 K/mm3 (4.4-11.0)
[2024-05-20 07:18] LABS: Anion Gap 4 (5-15); BUN 26 mg/dL (7-18); BUN/Creat Ratio 38.2 RATIO (10-20); Calcium,Total 9.8 mg/dL (8.5-10.1); Chloride 106 mmol/L (98-107); Cholesterol 103 mg/dL (200); Creatinine, Serum 0.68 mg/dL (0.70-1.30); EST Glomerular Filtration Rate 119 mL/min (>60); Est Glom Filt Rate - Afr Amer 144 mL/min (>60); Estimated Creatinine Clearance 94.13 ml/min; Glucose 130 mg/dL (74-106); High Density Lipoprotein 41 mg/dL; Potassium 4.1 mmol/L (3.5-5.1); Sodium Level 138 mmol/L (136-145); Triglycerides 50 mg/dL; Very Low Density Lipoprotein 10 mg/dL (5-40)
[2024-05-20] MEDS: Ipratropium/Albuterol Sulfate 3 ML AMPUL.NEB INHALATION ×3 (07:20→19:35)
--- NOTE | 2024-05-20 07:20 | PCM.PN.HOSP ---
Reason for Visit Reason for Visit: Diagnoses Hypoxemia (05/19/24) Subjective Subjective Patient with no acute events overnight per self and per nursing report, notes less dyspnea on supplemental oxygen therapy and no marked coughing or chest discomfort. Discussed plan of care which included continued treatment of possible concurrent heart failure exacerbation and conservative treatment of acute viral influenza A infection. Discussed given timeline he was out several days would defer any usage of Tamiflu at this time. Patient denies fevers, chills, nausea, emesis, abdominal pain. Objective Data Objective Data Vital Signs: Vital Signs Temp Pulse Resp BP Pulse Ox O2 Del Method O2 Flow Rate 97.7 F L 61 18 110/68 100 CPAP 3.5 05/20/24 05:00 05/20/24 05:00 05/20/24 05:00 05/20/24 05:00 05/20/24 05:00 05/20/24 05:00 05/20/24 05:00 Oxygen Flow Rate (L/min) 3.5 Oxygen Delivery Method CPAP Weight: 242 lb 4.608 oz Body Mass Index (BMI) 31.9 Intake & Output: Intake and Output for Last 24 Hours 05/18/24 05/19/24 05/20/24 23:59 23:59 23:59 Intake Total 1050 / 1350 300 / 300 Output Total 1650 / 1650 Balance 1050 / 50 -1350 / -1350 Lab / Micro Data 05/20/24 05:42 05/20/24 05:42 Labs: Laboratory Results - last 24 hr 05/19/24 15:26: WBC 5.8, RBC 3.83 L, Hgb 10.9 L, Hct 34.2 L, MCV 89.3, MCH 28.5, MCHC 31.9 L, RDW Std Deviation 50.0 H, RDW Coeff of Michelle 15.3 H, Plt Count 119 L, MPV 9.6, Immature Gran % (Auto) 0.500, Neut % (Auto) 72.9 H, Lymph % (Auto) 19.1, [place] % (Auto) 7.1, Eos % (Auto) 0.2, Baso % (Auto) 0.2, Absolute Neuts (auto) 4.2, Absolute Lymphs (auto) 1.11, Nucleated RBC % 0, PT 19.7 H, INR 1.7, APTT 40.2 H, Sodium 135 L, Potassium 4.1, Chloride 105, Carbon Dioxide 26.0, Anion Gap 4 L, BUN 21 H, Creatinine 0.70, Estim Creat Clear Calc 119.84, Est GFR (MDRD) Af Amer 139, Est GFR (MDRD) Non-Af 115, BUN/Creatinine Ratio 29.9 H, Glucose 110 H, Lactic Acid 1.7, Calcium 9.8, Total Bilirubin 1.40 H, AST 23, ALT 50, Alkaline Phosphatase 86, Troponin I High Sens 41, B-Natriuretic Peptide 233.1 H, Total Protein 6.9, Albumin 2.9 L, Globulin 4.0, Albumin/Globulin Ratio 0.7 L 05/19/24 16:25: Urine Color Yellow, Urine Clarity Clear, Urine pH 5.0, Ur Specific [place] 1.025, Urine Protein 30 H, Urine Glucose (UA) Normal, Urine Ketones Negative, Urine Occult Blood Negative, Urine Nitrite Negative, Urine Bilirubin Negative, Urine Urobilinogen Normal, Ur Leukocyte Esterase 100 H, Urine RBC 0 SEEN, Urine WBC 10-25 SEEN, Ur Squamous Epith Cells 0 SEEN, Urine Bacteria 0 SEEN, Urine Mucus 1+ 05/20/24 01:31: POC Glucose 170 H 05/20/24 05:42: WBC 4.1 L, RBC 3.65 L, Hgb 10.1 L, Hct 32.6 L, MCV 89.3, MCH 27.7, MCHC 31.0 L, RDW Std Deviation 50.3 H, RDW Coeff of Michelle 15.1 H, Plt Count 116 L, MPV 10.6, Immature Gran % (Auto) 0.500, Neut % (Auto) 64.3, Lymph % (Auto) 28.3, [place] % (Auto) 6.9, Eos % (Auto) 0.0, Baso % (Auto) 0.0, Absolute Neuts (auto) 2.6, Absolute Lymphs (auto) 1.15, Nucleated RBC % 0, Sodium 138, Potassium 4.1, Chloride 106, Carbon Dioxide 28.0, Anion Gap 4 L, BUN 26 H, Creatinine 0.68 L, Estim Creat Clear Calc 94.13, Est GFR (MDRD) Af Amer 144, Est GFR (MDRD) Non-Af 119, BUN/Creatinine Ratio 38.2 H, Glucose 130 H, Calcium 9.8, Triglycerides 50, Cholesterol 103, LDL Cholesterol 52, VLDL Cholesterol 10, HDL Cholesterol 41 Micro: Microbiology 05/19/24 15:26 Mucosa - Nose SARS-CoV-2, Influenza & RSV (PCR) - Final Radiography Diagnostic Testing: Radiology Impression Chest X-Ray 05/19/24 15:35 IMPRESSION: Stable findings of mild interstitial edema/congestive failure. Follow-up chest imaging to resolution recommended. No acute or emergent finding. Electronically Signed: Omar Boles MD at 15:47 EST , Physical Exam Narrative Physical Examination: General: Awake, alert, oriented x 3 and cooperative, seated upright in PCU bed in no apparent distress, notes improved less and dyspnea. Skin: Normal color, normal turgor, no icterus, no cyanosis except various abrasions, ecchymoses. HEENT: AT/NC, EOMI, PERRLA, mild dry MM. Lungs: Diminished, greater bases, mildly increased respiratory rate but no distress, minimal crackles at bases, no current wheezing, no rhonchi. Heart: Regular rate and rhythm; no gallop, rub audible. Abdomen: Soft, ostomy in place right lower quadrant with appropriate output, obese, NTTP, ND, normal BS. Extremities: No cyanosis, no clubbing, pedal to distal knee improved less than 1-2+ edema. Neurological: Patient awake, alert, oriented as noted, cognitive function intact; pupils equally reactive to light and accommodation, cranial nerves grossly normal, moving all 4 extremities, strength moderately globally decreased. Psychiatric: Affect appears fatigued otherwise normal, no acute evidence of depressive or anxiety feelings. 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 #1. Acute hypoxia suspected multifactorial, possible HFpEF exacerbation although suspect more likely secondary to Acute Viral Syndrome Influenza A illness, complicated by recent pneumonia previous to presentation, resolving with 1 additional dose of antibiotic therapy completed on day of presentation, unclear organism: Patient mated to PCU, suspected concurrent overload and viral etiology as source although BNP not markedly elevated at 233 but noted vascular congestion on chest x-ray, maintained on IV Lasix which will be continued through to 1110/24, echocardiogram with EF 55 to 60% with pacemaker leads noted on the right side thus could certainly be a component of diastolic failure, will continue monitor I's and O's. Given timeline of onset of viral symptoms will defer Tamiflu therapy. If any onset of wheezing low threshold to add steroid therapy. PT/OT/case management consulted for discharge planning. #2. Chronic COPD: Complicates presentation as noted above, will continue oxygen supplementation with wean as tolerated to room air, continue ATC duonebs, PRN albuterol, HOB, IS parameters. #3. Chronic pain syndrome, OA: Will continue lidocaine patches to the neck, R hip, BL knees, encourage offloading, continue buprenorphine patch, PT/OT/CM consulted for discharge planning. #4. History of pulmonary emboli, VTE: We will continue patient home Xarelto regimen. #5. PAF: s/p PPM, unclear if secondary to PAF but uncertain specific etiology. We will continue patient home metoprolol and Xarelto regimen. #6. History CVA: We will continue patient home Xarelto, hypertensive regimen, per current list not on statin therapy but clarifying. #7. History of Zakia syndrome: Patient s/p complete removal of the colon and ileostomy 1 to 2 months ago at [facility], complicates presentation, has ostomy in place, continue routine ostomy care. #8. Hypothyroidism: We will continue patient home levothyroxine regimen. #9. Chronic BPH with obstruction: We will continue patient home Flomax regimen. #10. GERD: We will continue patient on PPI. #11. NARCISO: Will use PAP therapy if appropriate. #12. DVT prophylaxis: Will continue home Xarelto regimen. #13. CODE status: Full Code status. Charges/Coding Visit Charges Inpatient E&M: 35004 Subs Hosp L2
[2024-05-20] MEDS: Menthol/Lanolin/Calamine/Znox 113 GM Tube 1 APPLIC TOPICAL ×2 (09:29→21:51)
[2024-05-20] MEDS: 0.9% Saline Lock 10 ML Syringe IV ×2 (09:30→21:50)
[2024-05-20] MEDS: Tamsulosin HCl 0.4 MG Capsule 0.8 MG PO (09:30)
[2024-05-20] MEDS: Furosemide 40 MG/4 ML Vial IV (09:30)
[2024-05-20] MEDS: levoFLOXacin 750 MG Tablet PO (09:31)
[2024-05-20] MEDS: Pantoprazole Sodium 40 MG Tablet PO (09:31)
[2024-05-20] MEDS: guaiFENesin 1,200 MG Tablet 1200 MG PO ×2 (09:31→21:50)
[2024-05-20] MEDS: Nystatin Powder 15gm Bottle 1 APPLIC TOPICAL ×2 (09:32→21:52)
[2024-05-20] MEDS: Metoprolol(XL)Succ 25 MG Tablet 12.5 MG PO (09:32)
[2024-05-20] MEDS: Lidocaine 5% Patch 1 PATCH TOPICAL (09:33)
[2024-05-20] MEDS: Gabapentin 600 MG Tablet PO ×4 (09:43→21:50)
[2024-05-20] MEDS: BUPRENORPHINE HCL 300 MCG BUCCAL ×2 (10:17→21:49)
--- NOTE | 2024-05-20 10:33 | CASEMGMT ---
Social Work SW met w/pt in room, confirmed plan will be to return to [place]. SNF list is not needed at this time. As per SNF paperwork on chart, pt has been there since 04/12/2024. SW sent updates in [facility] did responde that pt can return when ready. Green sheet w/transport forms on chart in anticipation of weekend discharge. DARYL Jones
[2024-05-20] MEDS: Lidocaine 5% Patch 4 PATCH TOPICAL (12:07)
[2024-05-21] VITALS (8 sets, daily range): BP systolic 96–109; BP diastolic 55–66; PULSE 60–68; RESP 16–20; TEMP 36.4–36.8; O2SAT 93–96; BMI 31.8
[2024-05-21] MEDS: Levothyroxine 88 MCG Tablet PO (06:04)
--- NOTE | 2024-05-21 07:00 | PN.HOSP_ITS ---
Reason for Visit Reason for Visit: Diagnoses Hypoxemia (05/19/24) Objective Data Objective Data Vital Signs: Vital Signs Temp Pulse Resp BP Pulse Ox O2 Del Method O2 Flow Rate 98.2 F 61 16 96/55 L 96 Nasal Cannula 3 05/21/24 04:25 05/21/24 04:25 05/21/24 04:25 05/21/24 04:25 05/21/24 04:25 05/21/24 04:25 05/21/24 04:25 Oxygen Flow Rate (L/min) 3 Oxygen Delivery Method Nasal Cannula Weight: 241 lb 10.026 oz Body Mass Index (BMI) 31.8 Intake & Output: Intake and Output for Last 24 Hours 05/19/24 05/20/24 05/21/24 23:59 23:59 23:59 Intake Total 1050 / 1350 1440 / 1440 60 / 60 Output Total 2900 / 2900 125 / 125 Balance 1050 / 50 -1460 / -1460 -65 / -65 Lab / Micro Data 05/20/24 05:42 05/20/24 05:42 Labs: Laboratory Results - last 24 hr 05/20/24 05:42: WBC 4.1 L, RBC 3.65 L, Hgb 10.1 L, Hct 32.6 L, MCV 89.3, MCH 27.7, MCHC 31.0 L, RDW Std Deviation 50.3 H, RDW Coeff of Michelle 15.1 H, Plt Count 116 L, MPV 10.6, Immature Gran % (Auto) 0.500, Neut % (Auto) 64.3, Lymph % (Auto) 28.3, [place] % (Auto) 6.9, Eos % (Auto) 0.0, Baso % (Auto) 0.0, Absolute Neuts (auto) 2.6, Absolute Lymphs (auto) 1.15, Nucleated RBC % 0, Sodium 138, Potassium 4.1, Chloride 106, Carbon Dioxide 28.0, Anion Gap 4 L, BUN 26 H, C reatinine 0.68 L, Estim Creat Clear Calc 94.13, Est GFR (MDRD) Af Amer 144, Est GFR (MDRD) Non-Af 119, BUN/Creatinine Ratio 38.2 H, Glucose 130 H, Calcium 9.8, Triglycerides 50, Cholesterol 103, LDL Cholesterol 52, VLDL Cholesterol 10, HDL Cholesterol 41 Micro: Microbiology 05/19/24 23:40 Mucosa - Nasopharyngeal Respiratory Panel (PCR) - Final Influenza A (Subtype H1) 05/19/24 15:26 Mucosa - Nose SARS-CoV-2, Influenza & RSV (PCR) - Final Radiography Diagnostic Testing: Radiology Impression Echocardiogram 05/19/24 21:42 Interpretation Summary The estimated ejection fraction is 55-60 %. Pacemaker lead was noted on the right side. Ordering Physician: Tabitha Griffin Referring Physician: BILLY XIONG Performed By: Elisabet Avalos RCS Physical Exam Narrative Physical Examination: General: Awake, alert, oriented x 3 and cooperative, seated upright in PCU bed in no apparent distress, notes improved less and dyspnea. Skin: Normal color, normal turgor, no icterus, no cyanosis except various abrasions, ecchymoses. HEENT: AT/NC, EOMI, PERRLA, mild dry MM. Lungs: Diminished, greater bases, mildly increased respiratory rate but no distress, minimal crackles at bases, no current wheezing, no rhonchi. Heart: Regular rate and rhythm; no gallop, rub audible. Abdomen: Soft, ostomy in place right lower quadrant with appropriate output, obese, NTTP, ND, normal BS. Extremities: No cyanosis, no clubbing, pedal to distal knee improved less than 1-2+ edema. Neurological: Patient awake, alert, oriented as noted, cognitive function intact; pupils equally reactive to light and accommodation, cranial nerves grossly normal, moving all 4 extremities, strength moderately globally decreased. Psychiatric: Affect appears fatigued otherwise normal, no acute evidence of depressive or anxiety feelings. Assessment & Plan Assessment/Plan (1) Hypoxia: PLAN: Plan The patient is an 79 y/o M w/ PMHx: COPD, NARCISO, Hx VTE (PE, DVT), PAF s/p PPM, Hx CVA, HTN, HLD, GERD, Hx [place]bur[place] syndrome s/p complete removal of the colon and ileostomy, Hypothyroidism, Chronic BPH with obstruction who presents to the [facility] ED on 05/20/24 with increased dyspnea, hypoxia and fever as well as cough prompting ED reevaluation. #1. Acute hypoxia suspected multifactorial, possible HFpEF exacerbation although suspect more likely secondary to Acute Viral Syndrome Influenza A illness, complicated by recent pneumonia previous to presentation, resolving with 1 additional dose of antibiotic therapy completed on day of presentation, unclear organism: Patient mated to PCU, suspected concurrent overload and viral etiology as source although BNP not markedly elevated at 233 but noted vascular congestion on chest x-ray, maintained on IV Lasix which will be continued through to , echocardiogram with EF 55 to 60% with pacemaker leads noted on the right side thus could certainly be a component of diastolic failure, will continue monitor I's and O's. Given timeline of onset of viral symptoms will defer Tamiflu therapy. If any onset of wheezing low threshold to add steroid therapy. PT/OT/case management consulted for discharge planning. #2. Chronic COPD: Complicates presentation as noted above, will continue oxygen supplementation with wean as tolerated to room air, continue ATC duonebs, PRN albuterol, HOB, IS parameters. #3. Chronic pain syndrome, OA: Will continue lidocaine patches to the neck, R hip, BL knees, encourage offloading, continue buprenorphine patch, PT/OT/CM consulted for discharge planning. #4. History of pulmonary emboli, VTE: We will continue patient home Xarelto regimen. #5. PAF: s/p PPM, unclear if secondary to PAF but uncertain specific etiology. We will continue patient home metoprolol and Xarelto regimen. #6. History CVA: We will continue patient home Xarelto, hypertensive regimen, per current list not on statin therapy but clarifying. #7. History of [place] syndrome: Patient s/p complete removal of the colon and ileostomy 1 to 2 months ago at [facility], complicates presentation, has ostomy in place, continue routine ostomy care. #8. Hypothyroidism: We will continue patient home levothyroxine regimen. #9. Chronic BPH with obstruction: We will continue patient home Flomax regimen. #10. GERD: We will continue patient on PPI. #11. NARCISO: Will use PAP therapy if appropriate. #12. DVT prophylaxis: Will continue home Xarelto regimen. #13. CODE status: Full Code status.
[2024-05-21] MEDS: Ipratropium/Albuterol Sulfate 3 ML AMPUL.NEB INHALATION ×2 (07:01→12:32)
[2024-05-21] MEDS: Tamsulosin HCl 0.4 MG Capsule 0.8 MG PO (07:57)
[2024-05-21] MEDS: Pantoprazole Sodium 40 MG Tablet PO (07:57)
[2024-05-21] MEDS: Furosemide 40 MG/4 ML Vial IV (07:57)
[2024-05-21] MEDS: 0.9% Saline Lock 10 ML Syringe IV (07:57)
[2024-05-21] MEDS: guaiFENesin 1,200 MG Tablet 1200 MG PO (07:57)
[2024-05-21] MEDS: Menthol/Lanolin/Calamine/Znox 113 GM Tube 1 APPLIC TOPICAL (07:59)
[2024-05-21 08:11] LABS: Absolute Lymphocyte Count 1.93 X10^3/uL (0.83-4.51); Absolute Neutrophil Count 2.6 X10^3/uL (2.0-7.7); Basophil# 0.02 X10^3/uL; Basophil% 0.4 % (0-1); Eosinophil# 0.02 X10^3/uL; Eosinophils% 0.4 % (0-5); Hemoglobin 10.2 g/dL (13.0-16.5); Lymphocyte # 1.93 X10^3/ul (0.83-4.51); Lymphocyte % 39.1 % (19-41); Mean Corp Hgb Conc 31.9 g/dL (32-36); Mean Corpuscular Hgb 28.3 pg (27.0-32.0); Mean Corpuscular Volume 88.9 fL (80-94); Monocyte# 0.36 X10^3/uL; Monocyte% 7.3 % (0-10); NRBC Flagged by Analyzer 0 % (0-5); Neutrophil # 2.59 X10^3/uL (2.7-7.7); Neutrophil % 52.4 % (47-70); Platelet Count 126 K/mm3 (150-450); RBC Distribution Width CV 15.5 % (11.6-14.6); RBC Distribution Width SD 50.9 fl (35.1-43.9); White Blood Count 4.9 K/mm3 (4.4-11.0)
[2024-05-21 08:32] LABS: ALB/GLOB Ratio 0.7 RATIO (0.9-2.4); AST(SGOT) 21 U/L (15-37); Alanine Aminotransfer ALT/SGPT 38 U/L (16-61); Albumin, Serum 2.9 g/dL (3.2-5.0); Alkaline Phosphatase 70 U/L (45-117); Anion Gap 4 (5-15); BUN 30 mg/dL (7-18); BUN/Creat Ratio 43.9 RATIO (10-20); Calcium,Total 10.1 mg/dL (8.5-10.1); Chloride 106 mmol/L (98-107); Creatinine, Serum 0.68 mg/dL (0.70-1.30); EST Glomerular Filtration Rate 118 mL/min (>60); Est Glom Filt Rate - Afr Amer 143 mL/min (>60); Estimated Creatinine Clearance 94.01 ml/min; Globulin 3.9 g/dL (2.2-4.2); Glucose 101 mg/dL (74-106); Potassium 3.8 mmol/L (3.5-5.1); Protein, Total 6.8 g/dL (6.4-8.2); Sodium Level 138 mmol/L (136-145)
[2024-05-21] MEDS: Gabapentin 600 MG Tablet PO (08:50)
[2024-05-21] MEDS: Metoprolol(XL)Succ 25 MG Tablet 12.5 MG PO (08:50)
[2024-05-21] MEDS: Nystatin Powder 15gm Bottle 1 APPLIC TOPICAL (08:50)
[2024-05-21] MEDS: levoFLOXacin 750 MG Tablet PO (08:50)
[2024-05-21] MEDS: Lidocaine 5% Patch 4 PATCH TOPICAL (08:51)
--- NOTE | 2024-05-21 10:06 | TREXTCAR_ITS ---
Diet Diet Order/Speech Therapy: 05/19/24 21:42 Diet: Cardiac - Heart Healthy/Cardiac diet Food consistency:: Regular Liquid Consistency:: Regular/Thin Dietary Modifications:: Sodium Restricted Type of Dietary Supplement:: Kaiser Fluid restriction:: 2000 mL Diet Comments: Fruit Punch Kaiser w/ breakfast and dinner Routine Orders/Code Status Enema Type: Fleetz Enema Frequency: Daily PRN Suppository Type: Dulcolax 10mg Suppository Frequency: Daily PRN O2 Liters per Minute: 2-3 O2 Frequency: Continuous Keep PO Greater than or Equal to (%): 90 Routine Lab Work: - (Repeat CBC, CMP within 1 week.) Code Status: Full Code Wound(s) sacrum: Wound Type: Pressure Injury Suggestions for Active Care Change Position every (hours): 2 Hours to sit in a chair: 4 Times a day to sit in chair: 3 Therapies Weight Bearing: Full weight bearing Extremity Affected:: Bilateral Lower Physical Therapy: Eval and Treat Occupational Therapy: Eval and Treat Problem/Diagnosis (1) Hypoxia: Status: Acute Code(s): R09.02 - Hypoxemia Comment: ADDITIONAL DISCHARGE INSTRUCTIONS/REVIEW: #1. Acute hypoxia suspected multifactorial, possible HFpEF exacerbation although suspect more likely secondary to Acute Viral Syndrome Influenza A illness, complicated by recent pneumonia previous to presentation #2. Chronic COPD #3. Chronic pain syndrome, OA #4. History of pulmonary emboli, VTE #5. PAF, s/p PPM #6. History CVA #7. History of Zakia syndrome #8. Hypothyroidism #9. Chronic BPH with obstruction #10. GERD #11. NARCISO #12. CODE status: Full Code status. Allergies/Procedures Done in Hospital Allergies No Known Allergies Allergy (Verified 05/12/24 12:27) Procedures: 2-D Echocardiogram and EKG Type of Care/Length of Stay Estimated LOS: More Than 30 Days Type of Care Needed: Skilled Rehab Potential: Good Prognosis: Good Additional Orders/Day of Discharge Day of Discharge: 05/21/24 Dietary and Speech Recommendations Dietitian Recommendations/Changes: Adjust to cardiac; sodium restriction diet with 2000ml fluid restriction. Will order fruit punch kaiser BID with breakfast and dinner to promote wound healing. Will consider consistent carbohydrate diet if blood glucose level are elevated. Will monitor weight, as available. Reviewed and approved by Nazanin Fisher, MS, RD, LD. Discharge Plan Admission Admit Date/Time: 05/19/24 19:20 Primary Reason for Your Visit: Hypoxia, HF Exacerbation, Acute Influenza A Viral Syndrome Attending Provider: Zoe Rivas Primary Care Provider: Primitivo Calle Consulting Providers: Tabitha Griffin Instructions Patient Instructions: Heart Failure Flare Up Signs, Adult Self-Care for Colds, Heart Failure Dc, The Flu (Influenza) Additional Instructions / Restrictions: ADDITIONAL DISCHARGE INSTRUCTIONS/INFORMATION: #1. Acute hypoxia suspected multifactorial, possible HFpEF exacerbation although suspect more likely secondary to Acute Viral Syndrome Influenza A illness, complicated by recent pneumonia previous to presentation of unclear organism: --BNP not markedly elevated at 233 but noted vascular congestion on chest x-ray. --Initiated and maintained on IV Lasix transitioned back to oral lasix home regimen 05/21/24. --Echocardiogram with EF 55 to 60% with pacemaker leads noted on the right side thus could certainly be a component of diastolic failure. --Continue oxygen supplementation until weaned to room air appropriate per your physician. --Continue recommended SNUG francisco javier wraps to BL LE, toes to knee, overlapping, no skin showing, redo q shift at facility and PRN if comes undone. --Continue fluid restriction until facility physician feels liberalization is appropriate. --Admission weight 257 lb 15 oz and discharge weight 241 lb 10 oz. If your weight which needs to be checked daily increases by >/= 5 lbs please contact Cardiology office or Primary care physician who may opt to pulse dose lasix or increase temporarily/adjust fluid restriction as needed. --Please continued temporarily scheduled duoneb treatments x 14 days and then may transition back to as needed. Discharge Orders/Prescriptions Prescriptions: New albuterol sulfate 2.5 mg /3 mL (0.083 %) Solution For Nebulization 2.5 mg inhalation Q2H PRN PRN (Reason: SOB &/OR WHEEZING) 30 Days Qty: 0 0RF guaifenesin [Mucus Relief ER] 1,200 mg Tablet Extended Release 12hr 1,200 mg PO BID 14 Days Qty: 0 0RF ipratropium-albuterol 0.5 mg-3 mg(2.5 mg base)/3 mL Solution For Nebulization 3 ml inhalation Q6H 14 Days Qty: 0 0RF Rx Instructions: Transition back to PRN after 14 days. Continued furosemide 20 mg tablet 20 mg PO QODAY polyvinyl alcohol-povidon(PF) 1.4-0.6 % dropperette 1 drp EACH EYE Q60M PRN (Reason: dry eye(s)) miconazole nitrate [Antifungal (miconazole)] 2 % powder 1 applic topical BID Patient Comments: groin gabapentin 600 mg tablet 600 mg PO 4X/DAY pantoprazole 40 mg tablet,delayed release (DR/EC) 40 mg PO DAILY tamsulosin 0.4 mg capsule 0.8 mg PO DAILY metoprolol succinate 25 mg tablet extended release 24 hr 12.5 mg PO DAILY Xarelto 20 mg tablet 20 mg PO QHS levothyroxine 88 mcg tablet 88 mcg PO DAILY buprenorphine HCl [Belbuca] 300 mcg film 300 mcg buccal Q12H 5 Days Qty: 60 0RF Changed lidocaine [Salonpas (lidocaine)] 4 % adhesive patch,medicated 4 patch topical Q24H Qty: 5 0RF Patient Comments: nay knees, rt hip, neck, lower back Rx Instructions: may leave on for up to 12 hrs acetaminophen 500 mg capsule 1,000 mg PO Q8H Qty: 30 0RF Held ipratropium-albuterol 0.5 mg-3 mg(2.5 mg base)/3 mL solution for nebulization 3 ml inhalation Q4H PRN (Reason: shortness of breath or wheezing) Hold Instructions: Resume on 06/05/24. May transition back to PRN after scheduled regimen as noted. Discontinued levofloxacin 750 mg tablet 750 mg PO DAILY Qty: 1 0RF Rx Instructions: Start on 05/15/2024-administer for 5 days azithromycin 250 mg tablet 250 mg PO DAILY Rx Instructions: start on day 2 of therapy Referrals / Follow Up: Primitivo Calle MD [Primary Care Provider] - (Follow-up within 3-5 days of discharge and within 1-2 days of SNF discharge.) Disposition Disposition (needs filled in before D/C Order can be placed): Custodial Facility
--- NOTE | 2024-05-21 10:23 | PCM.DC.SUM ---
Providers Date of Admission: 05/19/24 Date of Discharge: 05/21/24 Primary Care Physician: Dr. 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 Acute hypoxia suspected multifactorial, possible HFpEF exacerbation although suspect more likely secondary to Acute Viral Syndrome Influenza A illness, complicated by recent pneumonia previous to presentation #2. Chronic COPD #3. Chronic pain syndrome, OA #4. History of pulmonary emboli, VTE #5. PAF, s/p PPM #6. History CVA #7. History of [place] syndrome #8. Hypothyroidism #9. Chronic BPH with obstruction #10. GERD #11. NARCISO #12. CODE status: Full Code status. Medications at Discharge Home Medications furosemide 20 mg tablet 20 mg PO QODAY edema 05/12/24 gabapentin 600 mg tablet 600 mg PO 4X/DAY neuropathy 05/12/24 ipratropium 0.5 mg-albuterol 3 mg (2.5 mg base)/3 mL nebulization soln 3 ml inhalation Q4H PRN shortness of breath or wheezing 05/12/24 levothyroxine 88 mcg tablet 88 mcg PO DAILY thyroid 05/12/24 metoprolol succinate 25 mg tablet,extended release 24 hr 12.5 mg PO DAILY heart rate 05/12/24 miconazole nitrate 2 % topical powder (Antifungal (miconazole)) 1 applic topical BID yeast 05/12/24 pantoprazole 40 mg tablet,delayed release 40 mg PO DAILY acid reflux 05/12/24 polyvinyl alcohol-povidone (PF) 1.4 %-0.6 % eye drops in a dropperette 1 drp EACH EYE Q60M PRN dry eye(s) 05/12/24 rivaroxaban 20 mg tablet (Xarelto) 20 mg PO QHS blood thinner 05/12/24 tamsulosin 0.4 mg capsule 0.8 mg PO DAILY prostate 05/12/24 acetaminophen 500 mg capsule 1,000 mg (2 x 500 mg) PO Q8H pain #30 caps 05/21/24 albuterol sulfate 2.5 mg/3 mL (0.083 %) solution for nebulization 2.5 mg (3 mL) inhalation Q2H PRN PRN SOB &/OR WHEEZING 30 days #0 mL 05/21/24 buprenorphine HCl 300 mcg buccal film (Belbuca) 300 mcg buccal Q12H pain 5 days #60 ea 05/21/24 guaifenesin 1,200 mg tablet, extended release 12 hr (Mucus Relief ER) 1,200 mg PO BID 14 days #0 tabs 05/21/24 ipratropium 0.5 mg-albuterol 3 mg (2.5 mg base)/3 mL nebulization soln 3 ml inhalation Q6H 14 days #0 mL 05/21/24 lidocaine 4 % topical patch (Salonpas (lidocaine)) 4 patch topical Q24H pain #5 ea 05/21/24 Hospital Course Operations None Procedures 2-D Echocardiogram and EKG Summary of Care Provided Minutes Spent on Discharge: 35 Hospital Course: The patient is an 79 y/o M w/ PMHx: COPD, NARCISO, Hx VTE (PE, DVT), PAF s/p PPM, Hx CVA, HTN, HLD, GERD, 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 Patient admitted to the PCU, suspected concurrent overload and viral etiology as source although BNP not markedly elevated at 233 but noted vascular congestion on chest x-ray, maintained initially on IV Lasix which will be continued through to 05/21/24 with then transition to home oral Lasix regimen, echocardiogram with EF 55 to 60% with pacemaker leads noted on the right side thus could certainly be a component of diastolic failure, will continue monitor I's and O's. Respiratory panel with positive influenza A but given timeline of onset of viral symptoms deferred Tamiflu therapy. Patient maintained on ATC duonebs, PRN albuterol, HOB, IS parameters. Patient with underlying significant chronic pain syndrome maintained on his lidocaine patches as well as transition to a buprenorphine patch consistent with his home regimen. Given clinical improvement although still requiring oxygen supplementation patient discharged to residential facility on supplemental oxygen, restarted on home lasix with appropriate weight decrease, continued aerosols, conservative care for underlying influenza and from discussion likely several patients at that facility with a similar symptoms with recommended continued follow-up with primary care physician. DAY OF DISCHARGE PROGRESS NOTE: Subjective: Patient without acute event overnight per self and nursing report. Patient denies fever, chills, nausea, emesis, abdominal pain, chest pain. Patient notes feeling improved and less dyspneic. Patient amenable to discharge on supplemental oxygen with wean at facility. He agrees that his legs feel improved with less swelling. Patient will be discharged with follow-up with primary care physician within 3-5 days. Objective: T97.5, heart rate 60, BP 109/66, respiratory rate 20, 95% on 3 L nasal cannula. Physical Examination: General: Awake, alert, oriented x 3 and cooperative, seated upright in PCU bedside chair, notes feeling well and eager for discharge. Skin: Normal color, normal turgor, no icterus, no cyanosis except various abrasions, ecchymoses. HEENT: AT/NC, EOMI, PERRLA, MMM. Lungs: Improved, mildly diminished bases, improved respiratory rate, no distress, no marked crackles at this time at the bases, no wheezing or rhonchi. Heart: Regular rate and rhythm; no gallop, rub audible. Abdomen: Soft, ostomy in place right lower quadrant with appropriate output, obese, NTTP, ND, normal BS. Extremities: No cyanosis, no clubbing, bilateral lower extremities now soft, edema resolving. Neurological: Patient awake, alert, oriented as noted, cognitive function intact; pupils equally reactive to light and accommodation, cranial nerves grossly normal, moving all 4 extremities, strength improving but remains moderately globally decreased. Psychiatric: Affect appears improving, more active, normal, eager for discharge, no acute evidence of depressive or anxiety feelings. Assessment and Plan: Please see hospital summary above. Weight / BMI Weight Weight: 241 lb 10.026 oz Body Mass Index (BMI) 31.8 ABG / Lab / Microbiology Data 05/21/24 07:38 05/21/24 07:38 Laboratory: Laboratory Results - last 24 hr 05/21/24 07:38: WBC 4.9, RBC 3.60 L, Hgb 10.2 L, Hct 32.0 L, MCV 88.9, MCH 28.3, MCHC 31.9 L, RDW Std Deviation 50.9 H, RDW Coeff of Michelle 15.5 H, Plt Count 126 L, MPV 10.0, Immature Gran % (Auto) 0.400, Neut % (Auto) 52.4, Lymph % (Auto) 39.1, [place] % (Auto) 7.3, Eos % (Auto) 0.4, Baso % (Auto) 0.4, Absolute Neuts (auto) 2.6, Absolute Lymphs (auto) 1.93, Nucleated RBC % 0, Sodium 138, Potassium 3.8, Chloride 106, Carbon Dioxide 29.0, Anion Gap 4 L, BUN 30 H, Creatinine 0.68 L, Estim Creat Clear Calc 94.01, Est GFR (MDRD) Af Amer 143, Est GFR (MDRD) Non-Af 118, BUN/Creatinine Ratio 43.9 H, Glucose 101, Calcium 10.1, Total Bilirubin 0.80, AST 21, ALT 38, Alkaline Phosphatase 70, Total Protein 6.8, Albumin 2.9 L, Globulin 3.9, Albumin/Globulin Ratio 0.7 L Microbiology: Microbiology 05/19/24 23:40 Mucosa - Nasopharyngeal Respiratory Panel (PCR) - Final Influenza A (Subtype H1) 05/19/24 15:26 Mucosa - Nose SARS-CoV-2, Influenza & RSV (PCR) - Final Radiography Diagnostic Testing: Radiology Impression Echocardiogram 05/19/24 21:42 Interpretation Summary The estimated ejection fraction is 55-60 %. Pacemaker lead was noted on the right side. Ordering Physician: Tabitha Griffin Referring Physician: PRIMITIVO XIONG Performed By: Elisabet Avalos RCS Meaningful Use Info Meaningful Use Meaningful Use Diagnoses (Choose all that apply): CHF CHF HAROLDO/ARB ordered at discharge?: No Reason HAROLDO/ARB not ordered?: Hypotension Documented LVEF (%): 60 Ischemic Stroke Statin Dosing Therapy Reference: STATIN DOSE THERAPY REFERENCE: * Patients > 75 years receive moderate or high dose statin therapy. * Patients 75 years or YOUNGER should receive HIGH intensity statin dose unless contraindicated. You will be required to document reason for non-treatment if statin daily dose does not meet guidelines. HIGH DOSE STATIN THERAPY DAILY Atorvastatin > than or = to 40 mg Rosuvastatin > than or = to 20 mg Amlodipine + Atorvastatin > than or = to 2.5/40 mg Ezetimibe + Simvastatin 10/80 mg Simvastatin 80mg Discharge Plan Admission Admit Date/Time: 05/19/24 19:20 Primary Reason for Your Visit: Hypoxia, HF Exacerbation, Acute Influenza A Viral Syndrome Attending Provider: Zoe Rivas Primary Care Provider: Primitivo Xiong Consulting Providers: Tabitha Griffin Instructions Patient Instructions: Heart Failure Flare Up Signs, Adult Self-Care for Colds, Heart Failure Dc, The Flu (Influenza) Additional Instructions / Restrictions: ADDITIONAL DISCHARGE INSTRUCTIONS/INFORMATION: #1. Acute hypoxia suspected multifactorial, possible HFpEF exacerbation although suspect more likely secondary to Acute Viral Syndrome Influenza A illness, complicated by recent pneumonia previous to presentation of unclear organism: --BNP not markedly elevated at 233 but noted vascular congestion on chest x-ray. --Initiated and maintained on IV Lasix transitioned back to oral lasix home regimen 05/21/24. --Echocardiogram with EF 55 to 60% with pacemaker leads noted on the right side thus could certainly be a component of diastolic failure. --Continue oxygen supplementation until weaned to room air appropriate per your physician. --Continue recommended SNUG haroldo wraps to BL LE, toes to knee, overlapping, no skin showing, redo q shift at facility and PRN if comes undone. --Continue fluid restriction until facility physician feels liberalization is appropriate. --Admission weight 257 lb 15 oz and discharge weight 241 lb 10 oz. If your weight which needs to be checked daily increases by >/= 5 lbs please contact Cardiology office or Primary care physician who may opt to pulse dose lasix or increase temporarily/adjust fluid restriction as needed. --Please continued temporarily scheduled duoneb treatments x 14 days and then may transition back to as needed. Discharge Orders/Prescriptions Prescriptions: New albuterol sulfate 2.5 mg /3 mL (0.083 %) Solution For Nebulization 2.5 mg inhalation Q2H PRN PRN (Reason: SOB &/OR WHEEZING) 30 Days Qty: 0 0RF guaifenesin [Mucus Relief ER] 1,200 mg Tablet Extended Release 12hr 1,200 mg PO BID 14 Days Qty: 0 0RF ipratropium-albuterol 0.5 mg-3 mg(2.5 mg base)/3 mL Solution For Nebulization 3 ml inhalation Q6H 14 Days Qty: 0 0RF Rx Instructions: Transition back to PRN after 14 days. Continued furosemide 20 mg tablet 20 mg PO QODAY polyvinyl alcohol-povidon(PF) 1.4-0.6 % dropperette 1 drp EACH EYE Q60M PRN (Reason: dry eye(s)) miconazole nitrate [Antifungal (miconazole)] 2 % powder 1 applic topical BID Patient Comments: groin gabapentin 600 mg tablet 600 mg PO 4X/DAY pantoprazole 40 mg tablet,delayed release (DR/EC) 40 mg PO DAILY tamsulosin 0.4 mg capsule 0.8 mg PO DAILY metoprolol succinate 25 mg tablet extended release 24 hr 12.5 mg PO DAILY Xarelto 20 mg tablet 20 mg PO QHS levothyroxine 88 mcg tablet 88 mcg PO DAILY buprenorphine HCl [Belbuca] 300 mcg film 300 mcg buccal Q12H 5 Days Qty: 60 0RF Changed lidocaine [Salonpas (lidocaine)] 4 % adhesive patch,medicated 4 patch topical Q24H Qty: 5 0RF Patient Comments: nay knees, rt hip, neck, lower back Rx Instructions: may leave on for up to 12 hrs acetaminophen 500 mg capsule 1,000 mg PO Q8H Qty: 30 0RF Held ipratropium-albuterol 0.5 mg-3 mg(2.5 mg base)/3 mL solution for nebulization 3 ml inhalation Q4H PRN (Reason: shortness of breath or wheezing) Hold Instructions: Resume on 06/05/24. May transition back to PRN after scheduled regimen as noted. Discontinued levofloxacin 750 mg tablet 750 mg PO DAILY Qty: 1 0RF Rx Instructions: Start on 05/15/2024-administer for 5 days azithromycin 250 mg tablet 250 mg PO DAILY Rx Instructions: start on day 2 of therapy Referrals / Follow Up: Primitivo Xiong MD [Primary Care Provider] - (Follow-up within 3-5 days of discharge and within 1-2 days of SNF discharge.) Disposition Disposition (needs filled in before D/C Order can be placed): [facility] Charges/Coding Visit Charges Inpatient E&M: 57827 Disch Hosp >30min
--- NOTE | 2024-05-21 12:08 | NURSING ---
Attempted to call report to [facility]. Phone rang with no answer for 2 minutes 30 seconds. Will try again as patient transport is set up for 1230.
--- NOTE | 2024-05-21 12:42 | NURSING ---
Second attempt to call [facility] to give report. Waited for 3 minutes, no answer. Facility is aware patient is coming back today. Transport here to get patient at this time.
== END 2024-05-21 12:48 | disposition skilled nursing facility (03) | DRG 205 ==
LOC: ED 18:22 → PCU 19:25
PROVIDERS: Admitting Provider Internal Medicine; Emergency Provider Emergency Medicine; PCP Family Medicine; Visit Provider Family Medicine
DX: R09.02 Hypoxemia (principal); J18.9 Pneumonia, unspecified organism; I42.9 Cardiomyopathy, unspecified; I50.30 Unspecified diastolic (congestive) heart failure; J44.1 Chronic obstructive pulmonary disease with (acute) exacerbation; I11.0 Hypertensive heart disease with heart failure; I48.0 Paroxysmal atrial fibrillation; E11.9 Type 2 diabetes mellitus without complications; E03.9 Hypothyroidism, unspecified; Z93.2 Ileostomy status; J10.1 Influenza due to other identified influenza virus with other respiratory manifestations; J43.9 Emphysema, unspecified; M19.90 Unspecified osteoarthritis, unspecified site; E78.5 Hyperlipidemia, unspecified; G47.33 Obstructive sleep apnea (adult) (pediatric); K59.81 Ogilvie syndrome; K21.9 Gastro-esophageal reflux disease without esophagitis; Z79.01 Long term (current) use of anticoagulants; Z86.718 Personal history of other venous thrombosis and embolism; Z87.891 Personal history of nicotine dependence; Z95.0 Presence of cardiac pacemaker; G89.4 Chronic pain syndrome; Z93.3 Colostomy status; Z86.73 Personal history of transient ischemic attack (TIA), and cerebral infarction without residual deficits; N40.0 Benign prostatic hyperplasia without lower urinary tract symptoms
CPT/HCPCS: 36415; 71046; 80048; 80053; 80061; 81001; 82962; 83605; 83880; 84484; 85025; 85610; 85730; 87040; 87086; 87088; 87631; 87633; 93005; 93306; 94640; 94660; 94668; 97162; 97165; 97802; 99252; 99285; Q9957; A4216; C8929; G0463; J1940

== ENCOUNTER 2024-07-02 05:53 | Inpatient (IN) | payer MEDICARE, OTHER, SELFPAY ==
[2024-07-02] VITALS (58 sets, daily range): BP systolic 79–162; BP diastolic 40–87; PULSE 60–78; RESP 11–225; TEMP 36.2–39.6; O2SAT 73–100; BMI 33.3; BMI 32.3
[2024-07-02] MEDS: Succinylcholine Chloride 200 MG/10 ML SYRINGE 120 MG IV (06:01)
[2024-07-02] MEDS: Etomidate 20 MG/10 ML Vial IV (06:01)
[2024-07-02] MEDS: Propofol 10MG/Ml 1,000 MG/100 ML Bottle 6.9 MG CONT INF (06:10)
--- NOTE | 2024-07-02 06:20 | EKG12_ITS ---
Test Reason : UNRESPONSIVE Blood Pressure : */* mmHG Vent. Rate : 64 BPM Atrial Rate : 441 BPM P-R Int : * ms QRS Dur : 168 ms QT Int : 438 ms P-R-T Axes : * -57 94 degrees QTcB Int : 451 ms Ventricular-paced rhythm Abnormal ECG Confirmed by CATALINA REYES, OLIVIA ([id number]), multimedia editor JATIN CAMARENA ([id number]) on 07/03/2024 8:22:15 AM Referred By: Fransisco Clement Confirmed By: OLIVIA ARNOLD MD
--- NOTE | 2024-07-02 06:25 | RAD_ITS ---
EXAM: XR CHEST, 1 VIEW CLINICAL INDICATION: respiratory failure TECHNIQUE: Frontal view of the chest. COMPARISON: 2 view chest 05/31/2024 FINDINGS: LUNGS AND PLEURAL SPACES: Patchy airspace disease developing in the right lung especially the right upper lobe. No pneumothorax. No effusion. HEART: Cardiac silhouette is mildly enlarged. MEDIASTINUM: Central airways and mediastinal contour are unremarkable. BONES/JOINTS: Unremarkable. No acute fracture. SOFT TISSUES: Unremarkable. TUBES, LINES AND DEVICES: Endotracheal tube with tip 6.5 cm above the amina. Enteric tube extending below the level of the GE junction into the stomach. Left chest pacer. RAD/Chest 1 View (Portable) IMPRESSION: Patchy airspace disease developing in the right lung especially the right upper lobe. Findings may indicate pneumonia. Electronically Signed: Yao Tripathi MD at 7:30 EST ,
[2024-07-02] MEDS: Propofol 200 MG/20 ML Vial 60 MG IV BOLUS (06:30)
[2024-07-02 06:34] LABS: Absolute Lymphocyte Count 4.51 X10^3/uL (0.83-4.51); Absolute Neutrophil Count 8.1 X10^3/uL (2.0-7.7); Basophil# 0.04 X10^3/uL; Basophil% 0.3 % (0-1); Eosinophil# 0.19 X10^3/uL; Eosinophils% 1.4 % (0-5); Hematocrit 43.1 % (40-54); Hemoglobin 13.2 g/dL (13.0-16.5); Lymphocyte # 4.51 X10^3/ul (0.83-4.51); Lymphocyte % 33.7 % (19-41); Mean Corp Hgb Conc 30.6 g/dL (32-36); Mean Corpuscular Hgb 26.9 pg (27.0-32.0); Mean Corpuscular Volume 87.8 fL (80-94); Mean Platelet Vol. 11.1 fl (6.2-12.0); Monocyte# 0.49 X10^3/uL; Monocyte% 3.7 % (0-10); NRBC Flagged by Analyzer 0 % (0-5); Neutrophil # 8.12 X10^3/uL (2.7-7.7); Neutrophil % 60.5 % (47-70); Platelet Count 182 K/mm3 (150-450); RBC Distribution Width CV 15.4 % (11.6-14.6); RBC Distribution Width SD 49.3 fl (35.1-43.9); Red Blood Count 4.91 M/mm3 (4.6-6.2); White Blood Count 13.4 K/mm3 (4.4-11.0)
[2024-07-02] MEDS: 0.9% Normal Saline (1000mL) 1,000 ML 1000 ML IV (06:35)
[2024-07-02] MEDS: Acetaminophen 650 MG Suppository RC (06:42)
[2024-07-02 06:43] LABS: Allen Test Positive; Base Excess -2 mmol/L (-2 to +2); Bicarbonate 23.8 mmol/L (22-26); Blood Gas Specimen Type ART; Mode AC; O2 Delivery Device Adult Vent; PEEP 15; PO2 70 mmHG (75-100); RR 12; SITE L Radial; SO2 93 % (95-99); Total Carbon Dioxide 25 mmol/L; pCO2 40.8 mmHg (35-45); pH 7.37 (7.35-7.45)
[2024-07-02] MEDS: Ceftriaxone 2 GM in 0.9% Normal Saline (50mL MB+) 50 ML IV (06:46)
[2024-07-02 06:50] LABS: International Normalized Ratio 1.2; Prothrombin Time (Protime)PT. 15.3 SECONDS (11.7-14.9)
[2024-07-02 06:51] LABS: Partial Thromboplast Time 33.1 Seconds (24.1-36.2)
[2024-07-02 06:51] LABS: Color, Urine Yellow (Yellow); Glucose, Dipstick Normal (Normal); Ketone-Dipstick Negative (Negative); Leukocyte Esterase-Dipstick 500 /ul (Negative); Nitrite-Dipstick Negative (Negative); Occult Blood-Urine 10 /ul (Negative); Protein-Dipstick 100 mg/dl (Negative); Specific Gravity, Urine 1.025 (1.002-1.030); Urine Bilirubin Dipstick Negative (Negative); Urine Clarity Sl. Cloudy (Clear); Urine Urobilinogen 1 mg/dl (Normal)
[2024-07-02 06:55] LABS: AST(SGOT) 31 U/L (15-37); Alanine Aminotransfer ALT/SGPT 27 U/L (16-61); Albumin, Serum 3.6 g/dL (3.2-5.0); Alkaline Phosphatase 116 U/L (45-117); Anion Gap 7 (5-15); BUN 14 mg/dL (7-18); BUN/Creat Ratio 14.8 RATIO (10-20); Bilirubin, Direct 0.42 mg/dL (0.00-0.30); CPK Total, Creatine Kinase 28 U/L (39-308); Calcium,Total 10.2 mg/dL (8.5-10.1); Chloride 104 mmol/L (98-107); Creatinine, Serum 0.94 mg/dL (0.70-1.30); EST Glomerular Filtration Rate 82 mL/min (>60); Est Glom Filt Rate - Afr Amer 99 mL/min (>60); Estimated Creatinine Clearance 81.75 ml/min; Globulin 5.2 g/dL (2.2-4.2); Glucose 147 mg/dL (74-106); Lactic Acid 4.6 mmol/L (0.4-1.9); Lipase 47 U/L (13-75); Potassium 3.8 mmol/L (3.5-5.1); Protein, Total 8.8 g/dL (6.4-8.2); Sodium Level 140 mmol/L (136-145); Triglycerides 103 mg/dL; Troponin-I HS 14 pg/mL (3.0-78.0)
[2024-07-02 07:10] LABS: Bacteria 1+ /hpf (None Seen); Hyaline Cast 0-5 SEEN /lpf (0-5); Mucous, Urine 0 SEEN /hpf (<or=2+); Red Blood Cells-Urine 0-5 SEEN /hpf (0-5); Squamous Epithelial Cells - UA 0-5 SEEN /hpf (0-5); White Blood Cells >100 SEEN /hpf (0-5)
[2024-07-02 07:11] LABS: Calcium Oxalate Crystals Ur 1+ /hpf (<or=2+); Yeast-Urine 1+ /hpf (None Seen)
[2024-07-02 07:20] LABS: BNP,B-Type NATRIURETIC PEPTIDE 299.4 pg/mL (0-100)
[2024-07-02] MEDS: Azithromycin 500 MG in 0.9% Normal Saline (250mL Bag) 250 ML 250 MG IV (07:28)
--- NOTE | 2024-07-02 07:29 | EDS_ITS ---
HPI History of Present Illness Chief Complaint: Shortness of Breath Informant: EMS and SNF Narrative Narrative: EMS presenting 79-year-old male on continuous CPAP with respiratory failure. [place] He is reported to be a full code. He was reportedly found in respiratory distress. Patient has a history of CHF. Patient cannot provide any history. Patient reportedly has a history of pulmonary embolism and is on Xarelto. He also carries a history of COPD. [facility] Medical History Right lower lobe pneumonia Right middle lobe pneumonia Kidney stones Former smoker CPAP (continuous positive airway pressure) dependence On home oxygen therapy COPD (chronic obstructive pulmonary disease) Pacemaker TIA (transient ischemic attack) Atrial fibrillation HTN (hypertension) Hyperlipidemia CVA (cerebral vascular accident) Hypothyroidism Pulmonary embolism Diabetes Emphysema lung Cardiomyopathy Malignant neoplasm of base of tongue Home Medications ?Medication ?Instructions ?Recorded ?Last Taken ?Type furosemide 20 mg tablet 20 mg PO QODAY edema 05/12/24 05/19/24 08:05 History gabapentin 600 mg tablet 600 mg PO 4X/DAY neuropathy 05/12/24 05/19/24 12:00 History ipratropium 0.5 mg-albuterol 3 mg 3 ml inhalation Q4H PRN shortness 05/12/24 05/19/24 12:07 History (2.5 mg base)/3 mL nebulization of breath or wheezing soln levothyroxine 88 mcg tablet 88 mcg PO DAILY thyroid 05/12/24 05/19/24 05:10 History metoprolol succinate 25 mg 12.5 mg PO DAILY heart rate 05/12/24 05/19/24 08:06 History tablet,extended release 24 hr miconazole nitrate 2 % topical 1 applic topical BID yeast 05/12/24 Unknown History powder (Antifungal (miconazole)) pantoprazole 40 mg tablet,delayed 40 mg PO DAILY acid reflux 05/12/24 05/19/24 08:06 History release polyvinyl alcohol-povidone (PF) 1 drp EACH EYE Q60M PRN dry eye(s) 05/12/24 Unknown History 1.4 %-0.6 % eye drops in a dropperette rivaroxaban 20 mg tablet (Xarelto) 20 mg PO QHS blood thinner 05/12/24 05/18/24 20:09 History tamsulosin 0.4 mg capsule 0.8 mg PO QHS prostate 05/12/24 05/18/24 20:09 History acetaminophen 500 mg capsule 1,000 mg (2 x 500 mg) PO Q8H pain 05/21/24 05/19/24 14:00 Rx #30 caps albuterol sulfate 2.5 mg/3 mL 2.5 mg (3 mL) inhalation Q2H PRN 05/21/24 Unknown Rx (0.083 %) solution for nebulization PRN SOB &/OR WHEEZING 30 days #0 mL buprenorphine HCl 300 mcg buccal 300 mcg buccal Q12H pain 5 days 05/21/24 U nknown Rx film (Bel[place]uca) #60 ea guaifenesin 1,200 mg tablet, 1,200 mg PO BID 14 days #0 tabs 05/21/24 Unknown Rx extended release 12 hr (Mucus Relief ER) lidocaine 4 % topical patch 4 patch topical Q24H pain #5 ea 05/21/24 05/19/24 07:10 Rx (Salonpas (lidocaine)) multivit,tx with iron 27 1 tab PO DAILY 07/02/24 Unknown History [id number]-[id number]-[id number] acid 0.4 mg-minerals tablet (Thera-M) potassium chloride 20 mEq 40 meq PO DAILY 07/02/24 Unknown History tablet,extended release (K-Tab) Allergy/AdvReac Type Severity Reaction Status Date / Time No Known Allergies Allergy Verified 05/12/24 12:27 Social History Smoking Status: Unknown if ever smoked ROS ROS ED Review of Systems ROS Unobtainable: due to endotracheal tube EXAM Physical Exam Const Vital Signs: 07/02/24 05:55 07/02/24 06:05 07/02/24 06:09 Temperature 101.2 F H Temperature Source Axillary Pulse Rate 78 60 Respiratory Rate 32 H 30 H Respiratory Effort Short of Breath Respiratory Depth Shallow Respiratory Pattern Tachypnea Blood Pressure 162/87 H Blood Pressure Mean 112 Pulse Ox 77 81 Oxygen Delivery Method CPAP Fraction of Inspired Oxygen (FIO2) 100 07/02/24 06:16 07/02/24 06:30 07/02/24 06:59 Temperature 100.0 F H 101.0 F H 103.3 F H Temperature Source Core Core Core Pulse Rate 68 60 60 Respiratory Rate 26 H 225 H 19 H Respiratory Effort Respiratory Depth Respiratory Pattern Blood Pressure 131/54 H 113/47 L Blood Pressure Mean 79 69 Pulse Ox 94 89 94 Oxygen Delivery Method Mechanical Ventilator Mechanical Ventilator Mechanical Ventilator Fraction of Inspired Oxygen (FIO2) 07/02/24 07:00 07/02/24 07:13 07/02/24 07:30 Temperature 103.3 F H 103.2 F H Temperature Source Core Core Pulse Rate 60 60 Respiratory Rate 18 19 H Respiratory Effort Short of Breath Respiratory Depth Shallow Respiratory Pattern Tachypnea Blood Pressure 113/47 L 111/47 L Blood Pressure Mean 69 68 Pulse Ox 95 100 Oxygen Delivery Method Mechanical Ventilator Mechanical Ventilator Mechanical Ventilator Fraction of Inspired Oxygen (FIO2) 07/02/24 07:39 Temperature 103.1 F H Temperature Source Core Pulse Rate 60 Respiratory Rate 18 Respiratory Effort Respiratory Depth Respiratory Pattern Blood Pressure 111/47 L Blood Pressure Mean 68 Pulse Ox 100 Oxygen Delivery Method Mechanical Ventilator Fraction of Inspired Oxygen (FIO2) 100 Positive well nourished, well developed and obese Constitutional Narrative: Patient is in obvious respiratory distress. He has a new hue to his lips hands and feet and had. General Appearance ED: well developed Nutritional Appearance: obese HEENT Reports normocephalic, head/scalp atraumatic and moist mucous membranes Eyes PERRL and EOMs intact bilaterally Neck no lymphadenopathy, supple and no JVD Resp Resp Narrative: Respiratory distress rhonchi throughout Auscultation: rhonchi Cardio regular rate, regular rhythm and no murmurs GI normal to inspection, nondistended, normoactive bowel sounds and non-tender GI Narrative: Colostomy is present stoma pink Palpation: soft Back/Spine no CVA tenderness and normal ROM Extremity normal to inspection General Extremety ED: Negative for edema General Extremity: Negative for edema Neuro Neuro Narrative: Moves all extremities he opens his eyes to command Sensorium / Orientation: stuporous Psych Psych Narrative: Unable to assess Skin no rashes or lesions noted Sepsis Attestation Sepsis Alert: Yes Date exam was performed: 07/02/24 Time exam was performed: 06:00 Possible Source of Sepsis: Pulmonary Sepsis Organ Dysfunction Criteria Present: Acute Respiratory Failure (New need for BiPAP/CPAP or MV) and Lactic Acid > 2 mmol/L MDM MDM MDM Narrative Medical decision making narrative: Differential diagnosis includes CHF/pulmonary edema pneumonia or effusion metabolic disturbances such as electrolyte abnormalities acid-base disturbance renal failure liver dysfunction acute coronary syndrome Patient in obvious respiratory distress hypoxic on CPAP and is stuporous. Need for emergent intubation was identified and the patient underwent RSI using etomidate succinylcholine. Using a glide scope a endotracheal tube was placed on the first attempt without significant difficulty. It was secured at 25 cm good color change. Equal breath sounds bilaterally. Orogastric tube was then placed by nursing staff. My independent interpretation of the post intubation films is right sided infiltrates adequate placement of endotracheal tube and orogastric tube. Temperature sensitive Miles was placed and the patient was noted to be febrile and received rectal Tylenol. IV fluids were started antibiotics ordered after cultures were obtained. His white count 13.4 hemoglobin 13.2 INR 1.2 PTT 33.1 normal creatinine normal sodium potassium. Lactic acid is elevated at 4.6 which is most likely due to his substantial work of breathing. He does not appear volume depleted. Urinalysis does show some evidence of infection greater than 100 white cells 1+ bacteria however this is negative nitrates this was also sent for culture. Patient was given propofol for sedation. Unfortunately believe the propofol started to make him hypotensive so sedation was backed off and his blood pressures responding. Plan will be transferred to the ICU. I do not believe he needs volume resuscitated as he does not appear volume depleted and he has a history of CHF. He is making urine. ABG shows a pH 7.373 pCO2 40.8 PaO2 69.6 this is on 100% FiO2 with 15 of PEEP. Patient was readjusted to bring in his head up to 30 degrees which due to his body habitus I think would greatly improve his biomechanics of respiration. History & Record Review Discussion w/independent historian: EMS personnel Additional record(s) reviewed:: Prior ED visit and Prior labs Lab Data Attestation: I reviewed the patient's lab results. Labs: Laboratory Results - last 24 hr 07/02/24 07/02/24 05:55 06:30 WBC 13.4 H RBC 4.91 Hgb 13.2 Hct 43.1 MCV 87.8 MCH 26.9 L MCHC 30.6 L RDW Std Deviation 49.3 H RDW Coeff of Michelle 15.4 H Plt Count 182 MPV 11.1 Immature Gran % (Auto) 0.400 Neut % (Auto) 60.5 Lymph % (Auto) 33.7 [place] % (Auto) 3.7 Eos % (Auto) 1.4 Baso % (Auto) 0.3 Absolute Neuts (auto) 8.1 H Absolute Lymphs (auto) 4.51 Nucleated RBC % 0 PT 15.3 H INR 1.2 APTT 33.1 Sodium 140 Potassium 3.8 Chloride 104 Carbon Dioxide 29.0 Anion Gap 7 BUN 14 Creatinine 0.94 Estim Creat Clear Calc 81.75 Est GFR (MDRD) Af Amer 99 Est GFR (MDRD) Non-Af 82 BUN/Creatinine Ratio 14.8 Glucose 147 H Lactic Acid 4.6 H* Calcium 10.2 H Total Bilirubin 1.00 Direct Bilirubin 0.42 H AST 31 ALT 27 Alkaline Phosphatase 116 Total Creatine Kinase 28 L Troponin I High Sens 14 B-Natriuretic Peptide 299.4 H Total Protein 8.8 H Albumin 3.6 Globulin 5.2 H Triglycerides 103 Lipase 47 Urine Color Yellow Urine Clarity Sl. Cloudy Urine pH 6.0 Ur Specific Gravel Switch 1.025 Urine Protein 100 H Urine Glucose (UA) Normal Urine Ketones Negative Urine Occult Blood 10 H Urine Nitrite Negative Urine Bilirubin Negative Urine Urobilinogen 1 H Ur Leukocyte Esterase 500 H Urine RBC 0-5 SEEN Urine WBC >100 SEEN Ur Squamous Epith Cells 0-5 SEEN Calcium Oxalate Crystal 1+ Urine Bacteria 1+ Hyaline Casts 0-5 SEEN Urine Mucus 0 SEEN Urine Yeast 1+ ABG Data ABG results: ABG 07/02/24 06:39 Specimen Type ART Sample Site L Radial pH 7.37 Bicarbonate Actual 23.8 Total CO2 25 Base Excess -2 O2 Saturation 93 L O2 % 100.0 ABG pCO2 40.8 ABG pO2 70 L Sudhir Test Positive Respiration Rate 12 O2 Delivery Device Adult Vent Vent Mode AC Tidal Volume 450.0 POC PEEP 15 Radiography Diagnostic Testing: Clinical Impression(s) from Imaging Studies Chest X-Ray 07/02/24 06:25 IMPRESSION: Patchy airspace disease developing in the right lung especially the right upper lobe. Findings may indicate pneumonia. Electronically Signed: Yao Tripathi MD at 7:30 EST , EKG Initial EKG: Attestation: I personally reviewed and interpreted this EKG as follows: Comments: Ventricularly paced rhythm at a rate of 64 bpm. There appears to be an underlying atrial flutter rhythm Management Discussion w/another healthcare provider: Hospitalist Critical Care Time Critical Care Time: Yes Critical care time (excluding procedures): 30-74 minutes (35), Including time spent:, Discussing w/Patient &/or Family/Instrumentation And Control Technician, Discussing w/Consultants, Arranging Admission or Transfer and Performing Direct Patient Care at Bedside Discharge Plan Dx/Rx/DC Orders Clinical Impression: Acute hypoxic respiratory failure, Sepsis, Pneumonia Disposition Disposition: Acute Care Hospital [facility]
[2024-07-02] MEDS: 0.9% Normal Saline (1000mL) 1,000 ML 150 ML IV (07:32)
[2024-07-02] MEDS: Vancomycin HCl 1,750 MG in 0.9% Normal Saline (500mL Bag) 500 ML 250 MG IV (07:36)
--- NOTE | 2024-07-02 07:47 | PCM.HP.STD ---
[facility] General Date of Admission: 07/02/24 Date of Service: 07/02/24 Chief Complaint: Acute respiratory failure HPI Narrative SONI COLLINS, is a 79 M who presented to [facility] ED on 07/02/2024 from SNF with acute respiratory failure. Patient had significant increased work of breathing on arrival and was emergently intubated in the ED. History was gathered from patient's and chart review. Per , patient was in good state of health until February. He then had a prolonged hospitalization at [facility] from 03/10-04/12. 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 The hospital course was also complicated by presacral cellulitis. He was eventually discharged to SNF at the [facility]. He was then hospitalized here from 05/12-05/14 for sepsis secondary to bilateral pneumonia. Has history of COPD and wears 3 L nasal cannula at night. He was able to be weaned back to home amount of oxygen and discharged back to SNF. He then returned here with worsening shortness of breath and was hospitalized from 05/19-05/21. Was found to be positive for influenza A. Had some volume overload suspected due to mild CHF exacerbation which improved with diuresis. Was discharged back to SNF in stable condition. Per , patient had been doing well and plan was for discharge home this coming week. He ate a large meal with his yesterday and tolerated this without issue. It is unclear what happened overnight but patient was found by staff to be in acute respiratory distress and brought in for further management. Post-intubation, chest x-ray showed patchy airspace disease developing in the right lung especially the right upper lobe concerning for possible aspiration pneumonia. Labs notable for WBC count 13.4, lactate 4.6, otherwise appeared consistent with hemoconcentration. Patient was started on propofol in the ED and had blood pressure drop with this. He was resuscitated with 30 cc/kg of IV fluids with improvement of blood pressure. Lactate improved to 2.0 after fluid resuscitation. BNP mildly worse from previous at 299. UA with 500 leukocyte esterase, negative nitrites, greater than 100 WBCs, 1+ bacteria. Tele-pharmacy informaticist evaluated the patient on arrival to the ICU and recommended CT chest abdomen pelvis with IV contrast for further evaluation. CT showed moderate right pleural effusion with bilateral lower lobe infiltrates and right upper lobe infiltrate suggesting pneumonia; pericholecystic fluid concerning for acalculous cholecystitis; diffuse enlargement of the pancreas with peripancreatic edema suggesting acute pancreatitis; abdominal ascites; urinary bladder wall thickening and wedge-shaped areas of decreased perfusion in the right kidney consistent with pyelonephritis. Lipase notably was normal. [facility] Medical History Right lower lobe pneumonia Right middle lobe pneumonia Kidney stones Former smoker CPAP (continuous positive airway pressure) dependence On home oxygen therapy COPD (chronic obstructive pulmonary disease) Pacemaker TIA (transient ischemic attack) Atrial fibrillation HTN (hypertension) Hyperlipidemia CVA (cerebral vascular accident) Hypothyroidism Pulmonary embolism Diabetes Emphysema lung Cardiomyopathy Malignant neoplasm of base of tongue Home Medications ?Medication ?Instructions ?Recorded ?Last Taken ?Type gabapentin 600 mg tablet 600 mg PO 4X/DAY neuropathy 05/12/24 05/19/24 12:00 History ipratropium 0.5 mg-albuterol 3 mg 3 ml inhalation Q4H PRN shortness 05/12/24 05/19/24 12:07 History (2.5 mg base)/3 mL nebulization of breath or wheezing soln levothyroxine 88 mcg tablet 88 mcg PO DAILY thyroid 05/12/24 05/19/24 05:10 History metoprolol succinate 25 mg 12.5 mg PO DAILY heart rate 05/12/24 05/19/24 08:06 History tablet,extended release 24 hr miconazole nitrate 2 % topical 1 applic topical BID yeast 05/12/24 Unknown History powder (Antifungal (miconazole)) pantoprazole 40 mg tablet,delayed 40 mg PO DAILY acid reflux 05/12/24 05/19/24 08:06 History release polyvinyl alcohol-povidone (PF) 1 drp EACH EYE Q60M PRN dry eye(s) 05/12/24 Unknown History 1.4 %-0.6 % eye drops in a dropperette rivaroxaban 20 mg tablet (Xarelto) 20 mg PO QHS blood thinner 05/12/24 05/18/24 20:09 History tamsulosin 0.4 mg capsule 0.8 mg PO QHS prostate 05/12/24 05/18/24 20:09 History acetaminophen 500 mg capsule 1,000 mg (2 x 500 mg) PO Q8H pain 05/21/24 05/19/24 14:00 Rx #30 caps albuterol sulfate 2.5 mg/3 mL 2.5 mg (3 mL) inhalation Q2H PRN 05/21/24 Unknown Rx (0.083 %) solution for nebulization PRN SOB &/OR WHEEZING 30 days #0 mL buprenorphine HCl 300 mcg buccal 300 mcg buccal Q12H pain 5 days 05/21/24 Unknown Rx film (Belbuca) #60 ea guaifenesin 1,200 mg tablet, 1,200 mg PO BID 14 days #0 tabs 05/21/24 Unknown Rx extended release 12 hr (Mucus Relief ER) lidocaine 4 % topical patch 4 patch topical Q24H pain #5 ea 05/21/24 05/19/24 07:10 Rx (Salonpas (lidocaine)) bisacodyl 10 mg rectal suppository 10 mg [place] DAILY PRN constipation 07/02/24 Unknown History furosemide 40 mg tablet (Lasix) 40 mg PO DAILY diuretic 07/02/24 Unknown History magnesium hydroxide 400 mg/5 mL 30 ml PO DAILY PRN constipation 07/02/24 Unknown History oral suspension (Milk of Magnesia) mineral oil (Fleet Mineral Oil 118 ml [place] DAILY PRN constipation 07/02/24 Unknown History enema) multivit,tx with iron 27 1 tab PO DAILY supplement 07/02/24 Unknown History ld-zoanoqx-hrduo acid 0.4 mg-minerals tablet (Thera-M) potassium chloride 20 mEq 40 meq PO DAILY supplement 07/02/24 Unknown History tablet,extended release (K-Tab) Allergy/AdvReac Type Severity Reaction Status Date / Time No Known Allergies Allergy Verified 05/12/24 12:27 Social History Smoking Status: Former smoker ROS Review of Systems ROS Unobtainable: due to endotracheal tube Vital Signs Vital Signs Vital Signs: 07/02/24 05:55 07/02/24 06:05 07/02/24 06:09 Temperature 101.2 F H Temperature Source Axillary Pulse Rate 78 60 Respiratory Rate 32 H 30 H Respiratory Effort Short of Breath Respiratory Depth Shallow Respiratory Pattern Tachypnea Blood Pressure 162/87 H Blood Pressure Mean 112 Pulse Ox 77 81 Oxygen Delivery Method CPAP Fraction of Inspired Oxygen (FIO2) 100 07/02/24 06:16 07/02/24 06:30 07/02/24 06:59 Temperature 100.0 F H 101.0 F H 103.3 F H Temperature Source Core Core Core Pulse Rate 68 60 60 Respiratory Rate 26 H 225 H 19 H Respiratory Effort Respiratory Depth Respiratory Pattern Blood Pressure 131/54 H 113/47 L Blood Pressure Mean 79 69 Pulse Ox 94 89 94 Oxygen Delivery Method Mechanical Ventilator Mechanical Ventilator Mechanical Ventilator Fraction of Inspired Oxygen (FIO2) 07/02/24 07:00 07/02/24 07:13 07/02/24 07:30 Temperature 103.3 F H 103.2 F H Temperature Source Core Core Pulse Rate 60 60 Respiratory Rate 18 19 H Respiratory Effort Short of Breath Respiratory Depth Shallow Respiratory Pattern Tachypnea Blood Pressure 113/47 L 111/47 L Blood Pressure Mean 69 68 Pulse Ox 95 100 Oxygen Delivery Method Mechanical Ventilator Mechanical Ventilator Mechanical Ventilator Fraction of Inspired Oxygen (FIO2) 07/02/24 07:39 Temperature 103.1 F H Temperature Source Core Pulse Rate 60 Respiratory Rate 18 Respiratory Effort Respiratory Depth Respiratory Pattern Blood Pressure 111/47 L Blood Pressure Mean 68 Pulse Ox 100 Oxygen Delivery Method Mechanical Ventilator Fraction of Inspired Oxygen (FIO2) 100 Weight Weight: 114.6 kg Body Mass Index (BMI) 33.3 Physical Exam Const Constitutional Narrative: Intubated and sedated, opening eyes to voice but otherwise not following commands. HEENT normocephalic and head/scalp atraumatic HEENT Narrative: ET tube in place. Eyes PERRL, EOMs intact bilaterally and conjunctivae normal Neck supple Resp Resp Narrative: Breathing comfortably on ventilator. Coarse breath sounds noted in bilateral lung bases with significantly decreased breath sounds on right. No wheezing noted. Cardio regular rate, regular rhythm and no murmurs GI normal to inspection, nondistended, normoactive bowel sounds, soft to palpation and non-distended Extremity normal to inspection Extremity Narrative: No lower extremity edema noted. Results Lab / Micro Data 07/02/24 05:55 07/02/24 05:55 Labs: Laboratory Results - last 24 hr 07/02/24 05:55: WBC 13.4 H, RBC 4.91, Hgb 13.2, Hct 43.1, MCV 87.8, MCH 26.9 L, MCHC 30.6 L, RDW Std Deviation 49.3 H, RDW Coeff of Michelle 15.4 H, Plt Count 182, MPV 11.1, Immature Gran % (Auto) 0.400, Neut % (Auto) 60.5, Lymph % (Auto) 33.7, [place] % (Auto) 3.7, Eos % (Auto) 1.4, Baso % (Auto) 0.3, Absolute Neuts (auto) 8.1 H, Absolute Lymphs (auto) 4.51, Nucleated RBC % 0, PT 15.3 H, INR 1.2, APTT 33.1, Sodium 140, Potassium 3.8, Chloride 104, Carbon Dioxide 29.0, Anion Gap 7, BUN 14, Creatinine 0.94, Estim Creat Clear Calc 81.75, Est GFR (MDRD) Af Amer 99, Est GFR (MDRD) Non-Af 82, BUN/Creatinine Ratio 14.8, Glucose 147 H, Lactic Acid 4.6 H*, Calcium 10.2 H, Total Bilirubin 1.00, Direct Bilirubin 0.42 H, AST 31, ALT 27, Alkaline Phosphatase 116, Total Creatine Kinase 28 L, Troponin I High Sens 14, B-Natriuretic Peptide 299.4 H, Total Protein 8.8 H, Albumin 3.6, Globulin 5.2 H, Triglycerides 103, Lipase 47 07/02/24 06:30: Urine Color Yellow, Urine Clarity Sl. Cloudy, Urine pH 6.0, Ur Specific [place] 1.025, Urine Protein 100 H, Urine Glucose (UA) Normal, Urine Ketones Negative, Urine Occult Blood 10 H, Urine Nitrite Negative, Urine Bilirubin Negative, Urine Urobilinogen 1 H, Ur Leukocyte Esterase 500 H, Urine RBC 0-5 SEEN, Urine WBC >100 SEEN, Ur Squamous Epith Cells 0-5 SEEN, Calcium Oxalate Crystal 1+, Urine Bacteria 1+, Hyaline Casts 0-5 SEEN, Urine Mucus 0 SEEN, Urine Yeast 1+ Micro: Microbiology 07/02/24 06:30 Mucosa - Nasopharyngeal SARS-CoV-2, Influenza & RSV (PCR) - Final ABG Data ABG results: ABG 07/02/24 06:39 Specimen Type ART Sample Site L Radial pH 7.37 Bicarbonate Actual 23.8 Total CO2 25 Base Excess -2 O2 Saturation 93 L O2 % 100.0 ABG pCO2 40.8 ABG pO2 70 L Sudhir Test Positive Respiration Rate 12 O2 Delivery Device Adult Vent Vent Mode AC Tidal Volume 450.0 POC PEEP 15 Imaging Radiology Impression Chest X-Ray 07/02/24 06:25 IMPRESSION: Patchy airspace disease developing in the right lung especially the right upper lobe. Findings may indicate pneumonia. Electronically Signed: Yao Tripathi MD at 7:30 EST , Assessment & Plan Assessment/Plan (1) Acute hypoxic respiratory failure: (2) Sepsis: (3) Pneumonia: PLAN: Plan Patient is an 79-year-old male who presented [facility] ED on 07/02/2024 with acute respiratory distress. 1. Acute on chronic hypoxic respiratory failure and sepsis suspected secondary to pneumonia with worsening right pleural effusion and concern for ARDS ? Admit under inpatient status to ICU. Orthopedic [employer]itter following. Emergently intubated in the ED for respiratory failure. Suspected that acute respiratory failure may have been due to an aspiration event while patient was sleeping, as reported that patient was stable and doing well on night prior. Cannot rule out healthcare associated pneumonia. Initial chest x-ray showed patchy airspace disease developing in right lung especially right upper lobe. CT chest/abdomen/pelvis done on arrival to ICU showed moderate right pleural effusion with bilateral lobe infiltrates and right upper lobe infiltrate suggesting pneumonia. Nursing and RT noted worsening right sided breath sounds this afternoon; repeat chest x-ray showed right pleural effusion and worsening bilateral infiltrates. Patient is still oxygenating well, though oxygen requirements are fairly high. Received 30 cc/kg IV fluid resuscitation in the ED given concern for sepsis secondary to pneumonia. MRSA probe notably is positive. Discussing with pharmacy informaticist on need to potentially start IV diuresis. Treating with IV vancomycin, Zosyn and azithromycin. Infectious workup pending. Radiology consulted for consideration of right-sided thoracentesis. 2. Concern for acute pyelonephritis ? CT chest/abdomen/pelvis on admit showed urinary bladder wall thickening and wedge-shaped areas of decreased perfusion in the right kidney consistent with pyelonephritis. UA showed 100 leukocyte esterase, negative nitrites, greater than 100 RBCs, 1+ bacteria. Does have history of BPH with obstructive symptoms as noted below. Miles catheter placed on admit. Treating with broad-spectrum antibiotics as noted above. Follow-up urine cultures and blood cultures. 3. Concern for acute pancreatitis ? CT on admit showed diffuse enlargement of the pancreas with peripancreatic edema suggesting acute pancreatitis. Lipase normal. Unclear if patient is having abdominal pain as he is intubated and sedated. Per , patient had no abdominal complaints yesterday evening or in the days leading up to yesterday. Given heavy IV fluid resuscitation on admission as noted above. Seems most likely that aspiration pneumonia may be leading to ARDS as noted above but cannot rule out pancreatitis as possible cause of ARDS. 4. Concern for acalculous cholecystitis ? CT on admit showed no gallstones but pericholecystic fluid present concerning for acalculous cholecystitis. Appreciate pharmacy informaticist recs. May need to consult GI versus general surgery for further recommendations as well. 5. Concern for HFpEF ? Recently hospitalized from 05/19-05/21 for worsening shortness of breath and chest x-ray findings of bilateral carotids concerning for CHF. Was found to be positive for influenza A. Echo showed EF 55 to 60%, normal LV, normal RV size and function, no other abnormalities. Seems unlikely patient has true HFpEF at this time. Chronic medical conditions: ? Class I obesity: BMI 32 on admit. Complicates hospital course, care and prognosis. ? History of PE, paroxysmal A-fib, history of complete heart block s/p pacemaker placement: Continue home Xarelto. Holding home beta-ori for now. ? 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 BPH with obstructive symptoms: Continue home Flomax. ? GERD: Continue home PPI. ? NARCISO: Resume CPAP at night once extubated. ? Hypothyroidism: Continue home Synthroid. ? Chronic pain syndrome: Continue home gabapentin. Holding home buprenorphine while intubated and sedated. DVT prophylaxis: Not indicated, on Xarelto CODE STATUS: Full code, verified. Discussed with patient's on admission. She notes that patient has said he does not want to be on a ventilator for the rest of his life, but if his medical condition is reversible then he would want aggressive medical care. Expected disposition: TBD Total clinical time spent by myself addressing the patient's medical issues, reviewing all the data, and collaborating with patient's care team: 75 minutes. Charges/Coding Visit Charges Inpatient E&M: 69654 Init Hosp L3
[2024-07-02] MEDS: 0.9% Normal Saline (1000mL) 1,000 ML 999 ML IV ×2 (07:58→08:29)
[2024-07-02] MEDS: fentaNYL 100 MCG/2 ML Ampul 50 MCG IV (08:02)
[2024-07-02] MEDS: fentaNYL drip 100 ML 2.5 MCG CONT INF (08:21)
--- NOTE | 2024-07-02 10:02 | PHA.PHARE_ITS ---
Consult Antibiotic Management Pharmacy has been consulted to manage selected antibiotic: Vancomycin Type of Intervention Type of Consult: New start Suspected Infection Suspected Infection: Sepsis and Pneumonia Prior Doses of Antibiotics Prior Doses of Antibiotics Received/Current Regimen: Vancomycin 1750 mg X1 given 07/02/24 @ 0736, patient is also on piperacillin /tazobactam 3.375 grams Q8H Labs Labs: Sodium 140 mmol/L (136-145) 07/02/24 05:55 Potassium 3.8 mmol/L (3.5-5.1) 07/02/24 05:55 Chloride 104 mmol/L (98-107) 07/02/24 05:55 Carbon Dioxide 29.0 mmol/L (21.0-32.0) 07/02/24 05:55 Anion Gap 7 (5-15) 07/02/24 05:55 BUN 14 mg/dL (7-18) 07/02/24 05:55 Creatinine 0.94 mg/dL (0.70-1.30) 07/02/24 05:55 Est GFR (MDRD) Af Amer 99 mL/min (>60) 07/02/24 05:55 Est GFR (MDRD) Non-Af 82 mL/min (>60) 07/02/24 05:55 BUN/Creatinine Ratio 14.8 RATIO (10-20) 07/02/24 05:55 Glucose 147 mg/dL (74-106) H 07/02/24 05:55 Microbiology Microbiology: Microbiology 07/02/24 06:30 Urine, Clean Catch Legionella Antigen - Final 07/02/24 06:30 Urine, Clean Catch Streptococcus pneumoniae Antigen (M - Final 07/02/24 06:30 Mucosa - Nasopharyngeal SARS-CoV-2, Influenza & RSV (PCR) - Final Dosing Weight Weight used for dosin kg Estimated Creatinine Clearance Estimated Creatinine Clearance: ~ 82 Goal Trough Goal Trough: 15-20 mcg/mL Pharmacy Plan for Drug Dosing Pharmacy Plan for Drug Dosing: Vancomycin 1750 mg IV x 1 followed by 2000 mg Q12H Pharmacy Service will continue to monitor and adjust dosing as required. Follow-Up Labs Follow-Up Labs: Trough: Vancomycin Date/Time Labs Ordered Labs to be done on [date and time ordered]: 07/03/24 @ 0837
[2024-07-02 10:23] LABS: Reflex Lactate? Y
[2024-07-02] MEDS: Piperacil/Tazobactam 3.375 GM in 0.9% Normal Saline (50mL MB+) 50 ML IV ×3 (10:34→21:13)
[2024-07-02] MEDS: Chlorhexidine 15 ML PO ×2 (11:00→20:59)
[2024-07-02] MEDS: Norepinephrine 8 MG in 0.9% Normal Saline (250mL Bag) 242 ML 9.4 MG CONT INF (11:28)
--- NOTE | 2024-07-02 12:33 | PCMCONS.TICU ---
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 Has was recently admitted here in 05/2024 for influenza A and HFpEF exacerbation, and was discharged to SNF. He reportedly had a large meal before going to sleep yesterday, and then this AM was noted to be in respiratory distress. Unclear if any other preceding sx or any witnessed vomiting/aspiration. He was brought to ED and urgently intubated. He was mildly hypotensive despite 3L IVF, and so was started on low dose levophed. He is sedated but is arousable when stimulated and can follow some simple commands. ROS: Unable to obtain further as pt intubated [facility] Medical History Right lower lobe pneumonia Right middle lobe pneumonia Kidney stones Former smoker CPAP (continuous positive airway pressure) dependence On home oxygen therapy COPD (chronic obstructive pulmonary disease) Pacemaker TIA (transient ischemic attack) Atrial fibrillation HTN (hypertension) Hyperlipidemia CVA (cerebral vascular accident) Hypothyroidism Pulmonary embolism Diabetes Emphysema lung Cardiomyopathy Malignant neoplasm of base of tongue Home Medications ?Medication ?Instructions ?Recorded ?Last Taken ?Type gabapentin 600 mg tablet 600 mg PO 4X/DAY neuropathy 05/12/24 05/19/24 12:00 History ipratropium 0.5 mg-albuterol 3 mg 3 ml inhalation Q4H PRN shortness 05/12/24 05/19/24 12:07 History (2.5 mg base)/3 mL nebulization of breath or wheezing soln levothyroxine 88 mcg tablet 88 mcg PO DAILY thyroid 05/12/24 05/19/24 05:10 History metoprolol succinate 25 mg 12.5 mg PO DAILY heart rate 05/12/24 05/19/24 08:06 History tablet,extended release 24 hr miconazole nitrate 2 % topical 1 applic topical BID yeast 05/12/24 Unknown History powder (Antifungal (miconazole)) pantoprazole 40 mg tablet,delayed 40 mg PO DAILY acid reflux 05/12/24 05/19/24 08:06 History release polyvinyl alcohol-povidone (PF) 1 drp EACH EYE Q60M PRN dry eye(s) 05/12/24 Unknown History 1.4 %-0.6 % eye drops in a dropperette rivaroxaban 20 mg tablet (Xarelto) 20 mg PO QHS blood thinner 05/12/24 05/18/24 20:09 History tamsulosin 0.4 mg capsule 0.8 mg PO QHS prostate 05/12/24 05/18/24 20:09 History acetaminophen 500 mg capsule 1,000 mg (2 x 500 mg) PO Q8H pain 05/21/24 05/19/24 14:00 Rx #30 caps albuterol sulfate 2.5 mg/3 mL 2.5 mg (3 mL) inhalation Q2H PRN 05/21/24 Unknown Rx (0.083 %) solution for nebulization PRN SOB &/OR WHEEZING 30 days #0 mL buprenorphine HCl 300 mcg buccal 300 mcg buccal Q12H pain 5 days 05/21/24 Unknown Rx film (Belbuca) #60 ea guaifenesin 1,200 mg tablet, 1,200 mg PO BID 14 days #0 tabs 05/21/24 Unknown Rx extended release 12 hr (Mucus Relief ER) lidocaine 4 % topical patch 4 patch topical Q24H pain #5 ea 05/21/24 05/19/24 07:10 Rx (Salonpas (lidocaine)) bisacodyl 10 mg rectal suppository 10 mg NE DAILY PRN constipation 07/02/24 Unknown History furosemide 40 mg tablet (Lasix) 40 mg PO DAILY diuretic 07/02/24 Unknown History magnesium hydroxide 400 mg/5 mL 30 ml PO DAILY PRN constipation 07/02/24 Unknown History oral suspension (Milk of Magnesia) mineral oil (Fleet Mineral Oil 118 ml NE DAILY PRN constipation 07/02/24 Unknown History enema) multivit,tx with iron 27 1 tab PO DAILY supplement 07/02/24 Unknown History yr-lmlozfa-xpvun acid 0.4 mg-minerals tablet (Thera-M) potassium chloride 20 mEq 40 meq PO DAILY supplement 07/02/24 Unknown History tablet,extended release (K-Tab) Allergy/AdvReac Type Severity Reaction Status Date / Time No Known Allergies Allergy Verified 05/12/24 12:27 Social History Smoking Status: Former smoker ROS ROS Narrative Unable to obtain d/t intubation Review of Systems ROS Unobtainable: due to endotracheal tube Objective Data Objective Data Vital Signs: Vital Signs Last response Temperature 37.8 C H 07/02/24 11:00 Temperature Source Core 07/02/24 11:00 Pulse Rate 62 07/02/24 11:00 Respiratory Rate 16 07/02/24 11:00 Respiratory Effort Short of Breath 07/02/24 07:13 Respiratory Depth Shallow 07/02/24 07:13 Respiratory Pattern Normal 07/02/24 10:00 Blood Pressure 80/52 L 07/02/24 11:28 Blood Pressure Mean 61 07/02/24 11:28 Blood Pressure Source Monitor 07/02/24 11:00 Blood Pressure Position Semi-Fowlers 07/02/24 11:00 Blood Pressure Location Left Arm 07/02/24 11:00 Pulse Ox 92 07/02/24 11:00 Oxygen Delivery Method Mechanical Ventilator 07/02/24 11:00 Fraction of Inspired Oxygen (FIO2) 80 07/02/24 11:22 I&O: I&O Last 24 Hours 07/01/24 07/02/24 07/02/24 23:59 11:59 23:59 Intake Total 3315.33 / 3315.33 Output Total 175 / 175 Balance 3315.33 / 3140.33 -175 / 3140.33 I&O: Total Stay 07/02/24 05:53 thru 07/02/24 12:00 Intake Total 3315.33 Output Total 175 Balance 3140.33 Current Meds Ordered / Administered: Current meds ordered / Administered Generic Name Dose Route Start Last Admin Trade Name Freq PRN Reason Stop Dose Admin Acetaminophen 650 mg 07/02/24 12:21 Acetaminophen 325 Mg Tablet GT Q6H PRN PRN Pain 1-10 or Fever Albuterol/Ipratropium 3 ml 07/02/24 09:49 Ipratropium/Albuterol Sulfate 3 Ml Ampul.Neb INHALATION Q4H PRN shortness of breath or wheezing Gabapentin 600 mg 07/02/24 10:00 Gabapentin 600 Mg Tablet PO 4X/DAY ADAN Sodium Chloride 1,000 mls @ 150 mls/hr 07/02/24 06:20 07/02/24 10:30 IV 150 mls/hr .Q6H40M ADAN Infusion Propofol 1,000 mg in 100 mls @ 6.876 mls/hr 07/02/24 06:20 07/02/24 10:30 Diprivan CONT INF 20 mcg/kg/min .Q12H ADAN 13.8 mls/hr Titration Protocol 10 MCG/KG/MIN Fentanyl 100 mls @ 2.5 mls/hr 07/02/24 08:00 07/02/24 10:00 CONT INF 25 mcg/hr UD ADAN 2.5 mls/hr Titration Protocol 25 MCG/HR Vancomycin IV-PHARMACY TO DOSE 500 mls @ 250 mls/hr 07/02/24 09:49 1 each/ Sodium Chloride IV PRN PRN Rx to Dose Protocol Piperacillin Sod/Tazobactam 50 mls @ 12.5 mls/hr 07/02/24 09:49 07/02/24 10:34 Sod 3.375 gm/ Sodium Chloride IV 12.5 mls/hr Q8 ADAN Administration Vancomycin HCl 2,000 mg/ 540 mls @ 250 mls/hr 07/02/24 19:00 Sodium Chloride IV Q12H ADAN Sodium Chloride 100 mls @ 15 mls/hr 07/02/24 10:42 IV .Q6H40M PRN Saline Flush Sodium Chloride 100 mls @ 15 mls/hr 07/02/24 10:42 IV .Q6H40M PRN Additional IVPB Infusion Norepinephrine Bitartrate 8 mg 250 mls @ 9.375 mls/hr 07/02/24 11:10 07/02/24 11:28 / Sodium Chloride CONT INF 5 mcg/min .[id number] ADAN 9.4 mls/hr Administration Protocol 5 MCG/MIN Levothyroxine Sodium 88 mcg 07/03/24 06:00 Levothyroxine 88 Mcg Tablet GT DAILY@0600 ADAN Methylprednisolone 40 mg 07/02/24 09:49 07/02/24 10:36 Methylprednisolone 40 Mg/Ml Vial IV 40 mg Q8 ADAN Administration Nystatin 1 applic 07/02/24 22:00 Nystatin Powder 15gm Bottle TOPICAL BID ADAN Ondansetron HCl 4 mg 07/02/24 09:49 Ondansetron 4 Mg/2 Ml Vial IV Q8H PRN PRN NAUSEA/VOMITING Pantoprazole Sodium 40 mg 07/02/24 10:00 Pantoprazole Sodium 40 Mg Tablet PO DAILY [facility] Rivaroxaban 20 mg 07/02/24 22:00 Rivaroxaban 20 Mg Tablet GT QHS [facility] Sodium Chloride 10 - 40 ml 07/02/24 10:42 0.9% Saline Lock 10 Ml Syringe IV UD PRN SALINE FLUSH Tamsulosin HCl 0.8 mg 07/02/24 22:00 Tamsulosin Hcl 0.4 Mg Capsule PO QHS [facility] Vancomycin Protocol 1 lab 07/03/24 16:30 Vancomycin Trough/Random Due MC 07/03/24 20:30 DAILY [facility] Lab / Micro Data 07/02/24 05:55 07/02/24 05:55 Labs: Laboratory Results - last 24 hr 07/02/24 05:55: WBC 13.4 H, RBC 4.91, Hgb 13.2, Hct 43.1, MCV 87.8, MCH 26.9 L, MCHC 30.6 L, RDW Std Deviation 49.3 H, RDW Coeff of Michelle 15.4 H, Plt Count 182, MPV 11.1, Immature Gran % (Auto) 0.400, Neut % (Auto) 60.5, Lymph % (Auto) 33.7, Terry % (Auto) 3.7, Eos % (Auto) 1.4, Baso % (Auto) 0.3, Absolute Neuts (auto) 8.1 H, Absolute Lymphs (auto) 4.51, Nucleated RBC % 0, PT 15.3 H, INR 1.2, APTT 33.1, Sodium 140, Potassium 3.8, Chloride 104, Carbon Dioxide 29.0, Anion Gap 7, BUN 14, Creatinine 0.94, Estim Creat Clear Calc 81.75, Est GFR (MDRD) Af Amer 99, Est GFR (MDRD) Non-Af 82, BUN/Creatinine Ratio 14.8, Glucose 147 H, Lactic Acid 4.6 H*, Calcium 10.2 H, Total Bilirubin 1.00, Direct Bilirubin 0.42 H, AST 31, ALT 27, Alkaline Phosphatase 116, Total Creatine Kinase 28 L, Troponin I High Sens 14, B-Natriuretic Peptide 299.4 H, Total Protein 8.8 H, Albumin 3.6, Globulin 5.2 H, Triglycerides 103, Lipase 47 07/02/24 06:30: Urine Color Yellow, Urine Clarity Sl. Cloudy, Urine pH 6.0, Ur Specific Cotton 1.025, Urine Protein 100 H, Urine Glucose (UA) Normal, Urine Ketones Negative, Urine Occult Blood 10 H, Urine Nitrite Negative, Urine Bilirubin Negative, Urine Urobilinogen 1 H, Ur Leukocyte Esterase 500 H, Urine RBC 0-5 SEEN, Urine WBC >100 SEEN, Ur Squamous Epith Cells 0-5 SEEN, Calcium Oxalate Crystal 1+, Urine Bacteria 1+, Hyaline Casts 0-5 SEEN, Urine Mucus 0 SEEN, Urine Yeast 1+ 07/02/24 10:40: Lactic Acid 2.0 Micro: Microbiology 07/02/24 08:35 Nasal Secretion MRSA (PCR) - Final Meth. resistant Staph. aureus 07/02/24 06:30 Urine, Clean Catch Legionella Antigen - Final 07/02/24 06:30 Urine, Clean Catch Streptococcus pneumoniae Antigen (M - Final 07/02/24 06:30 Mucosa - Nasopharyngeal SARS-CoV-2, Influenza & RSV (PCR) - Final ABG Data ABG results: ABG 07/02/24 06:39 Specimen Type ART Sample Site L Radial pH 7.37 Bicarbonate Actual 23.8 Total CO2 25 Base Excess -2 O2 Saturation 93 L O2 % 100.0 ABG pCO2 40.8 ABG pO2 70 L Sudhir Test Positive Respiration Rate 12 O2 Delivery Device Adult Vent Vent Mode AC Tidal Volume 450.0 POC PEEP 15 Imaging Radiology Impression Chest X-Ray 07/02/24 06:25 IMPRESSION: Patchy airspace disease developing in the right lung especially the right upper lobe. Findings may indicate pneumonia. Electronically Signed: Yao Tripathi MD at 7:30 EST , Assessment and Plan . Assessment and plan: Physical Exam: Gen - NAD, obese HEENT - MMM. ETT in place Resp - Diminished BS. Mechanically ventilated CV - Irregular rhythm, paced. No m/g/r Abd - Soft, NT, ND. +colostomy Ext - No c/c. Trace edema Skin - No rashes? Neuro - Sedated, intubated. Arousable and can follow some simple commands I have reviewed the pertinent vital sign, laboratory, and imaging data. ASSESSMENT: # Acute hypoxic respiratory failure - intubated on admit 07/02 # Septic shock # Pneumonia - in setting of recent hospitalization and flu A positive here in 05/2024. 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 Wean FiO2 to keep sats 90-92%. Follow ABG/CXR -Wean low dose levophed to keep MAP > 65. Will need CVL if unable to wean off pressors this afternoon -Stop IVF after additional liter is finished, received several boluses in ED as well -Started on empiric vanc/zosyn/azithro. f/u Cx. MRSA positive. COVID/flu/RSV neg -Started on IV steroids, duonebs. Cont for now -Obtain CT chest/A/P -Initial trop neg, trend. Verify admit EKG -Cont xarelto FEN/GI: NPO Proph DVT/GI: Xarelto, protonix Critical Care Time: 60 mins The entirety of this encounter was completed via telemedicine
--- NOTE | 2024-07-02 13:14 | EKG12_ITS ---
Test Reason : ekg chg. Blood Pressure : */* mmHG Vent. Rate : 62 BPM Atrial Rate : 375 BPM P-R Int : * ms QRS Dur : 172 ms QT Int : 482 ms P-R-T Axes : * -46 85 degrees QTcB Int : 489 ms Ventricular-paced rhythm Abnormal ECG When compared with ECG of 02-Jul-2024 06:16, MANUAL COMPARISON REQUIRED DATA IS UNCONFIRMED Confirmed by CATALINA REYES, OLIVIA ([id number]), city editor JATIN CAMARENA ([id number]) on 07/03/2024 8:36:39 AM Referred By: Fransisco Clement Confirmed By: OLIVIA ARNOLD MD
--- NOTE | 2024-07-02 13:22 | CT_ITS ---
EXAM: CT CHEST, ABDOMEN AND PELVIS WITH INTRAVENOUS CONTRAST CLINICAL INDICATION: Septic Shock, pneumonia, UTI, assess for pyelo TECHNIQUE: Helically acquired images were obtained of the chest, abdomen and pelvis with intravenous contrast. This CT exam was performed using one or more of the following dose reduction techniques: automated exposure control, adjustment of the mA and/or kV according to patient size, and/or use of iterative reconstruction technique. CONTRAST: IV 100mL Isovue-370 RADIATION DOSE: CTDIvol = 25.35 mGy, DLP = 2512.72 mGy-cm COMPARISON: No relevant prior studies available. FINDINGS: CHEST: LUNGS AND PLEURAL SPACES: Moderate right pleural effusion. Bilateral lower lobe infiltrates and a right upper lobe infiltrate suggesting pneumonia. There is no pneumothorax. There is no demonstrated pleural abnormality. No mass. HEART: There are calcifications of the coronary arteries. Heart size is normal. No pericardial effusion. MEDIASTINUM: Unremarkable. No mediastinal or hilar adenopathy. Esophagus is unremarkable. No hiatal hernia. THYROID: Unremarkable. No thyroid lesions. ABDOMEN: LIVER: Unremarkable. Normal liver. GALLBLADDER AND BILE DUCTS: No visible calcified gallstones. However there is pericholecystic fluid. Acalculous cholecystitis is in the differential. No intra- or extrahepatic biliary ductal dilation. PANCREAS: There is diffuse enlargement of the pancreas with alan-pancreatic edema suggesting acute pancreatitis. No focal cystic or solid mass. SPLEEN: Unremarkable. Normal spleen. ADRENALS: Unremarkable. Normal bilateral adrenal glands. KIDNEYS AND URETERS: There are wedge shaped areas of decreased perfusion in the right kidney. This is consistent for pyelonephritis. There are hypodensities in the right kidney. These are consistent for cysts. No follow up required. There are hypodensities in the left kidney. These are consistent for cysts. No follow up required. Normal renal size and position. No hydronephrosis. STOMACH AND BOWEL: Rectal stump in place. Right lower quadrant ileostomy site. Presently no evidence for bowel obstruction. Findings suggesting partial colectomy. Normal visualized stomach. PELVIS: APPENDIX: There is non-visualization of the appendix. BLADDER: Urinary bladder wall has wall thickening. This can be related to a partially contractile state. However, a cystitis is not excluded. Urinalysis should be performed in an effort to exclude cystitis. There is a Miles balloon catheter in the urinary bladder. REPRODUCTIVE: There are prostatic calcifications. SUBPERITONEAL SPACE: Presacral inflammatory changes. CHEST, ABDOMEN and PELVIS: INTRAPERITONEAL SPACE: Abdominal ascites. No free air. BONES/JOINTS: There are degenerative changes of the shoulders. There are multi-level degenerative changes of the thoracic spine. Degenerative findings of both hips. L1 kyphoplasty change. There are diffuse degenerative changes of the visualized lumbar spine. No suspicious lytic or blastic abnormality. SOFT TISSUES: Left inguinal hernia containing fat. Normal abdominal wall. VASCULATURE: Prominent azygos vein. There is atherosclerotic calcification of the aortic arch with tortuosity and elongation of the aortic arch and descending thoracic aorta. Right-sided pelvic venous varices. There are calcifications of the abdominal aorta. This is consistent for atherosclerotic disease. There is no abdominal aortic aneurysm. Normal pulmonary arteries. LYMPH NODES: Unremarkable. No enlarged lymph nodes. TUBES, LINES AND DEVICES: ET tube in place. NG tube in place. CT/CT Chest, Abd, Pel w/Contrast IMPRESSION: 1. Moderate right pleural effusion. Bilateral lower lobe infiltrates and a right upper lobe infiltrate suggesting pneumonia. 2. No visible calcified gallstones. However there is pericholecystic fluid. Acalculous cholecystitis is in the differential. 3. There is diffuse enlargement of the pancreas with alan-pancreatic edema suggesting acute pancreatitis. 4. Abdominal ascites. 5. There are wedge shaped areas of decreased perfusion in the right kidney. This is consistent for pyelonephritis. 6. Urinary bladder wall has wall thickening. This can be related to a partially contractile state. However, a cystitis is not excluded. Urinalysis should be performed in an effort to exclude cystitis. 7. There are calcifications of the coronary arteries. Electronically Signed: Yao Stephens MD at 15:31 EST ,
--- NOTE | 2024-07-02 13:25 | RAD_ITS ---
STUDY: XR Abdomen 1 View 07/02/2024 1:12 PM REASON FOR EXAM: Male, 79 years old. ABDOMINAL PAIN post OG placement TECHNIQUE: XR Abdomen 1 View COMPARISON: None FINDINGS: Right pleural effusion. Bilateral pneumonia. There is an unremarkable bowel gas pattern. There is a feeding tube/ nasogastric tube noted. The tip is in the region of the stomach. There is no demonstrated free abdominal air. L1 kyphoplasty changes. The visualized liver, spleen and kidneys are grossly normal in size and morphology. Normal soft tissue structures. There are diffuse degenerative changes of the visualized lumbar spine. RAD/Abdomen Single View (Portable) IMPRESSION: Right pleural effusion. Bilateral pneumonia. NG tube noted. Tip in the region of the stomach. Electronically Signed: Yao Stephens MD at 15:00 EST ,
[2024-07-02 13:46] LABS: Bedside Glucose 186 mg/dL (74-106)
[2024-07-02] MEDS: Propofol 10MG/Ml 1,000 MG/100 ML Bottle 13.8 MG CONT INF ×2 (13:46→20:59)
[2024-07-02 14:32] LABS: Magnesium 1.5 mg/dL (1.6-2.6)
[2024-07-02 14:38] LABS: Procalcitonin 0.07 ng/mL (0.00-0.09)
[2024-07-02] MEDS: Pantoprazole Sodium 40 MG in 0.9% Normal Saline (100mL MB+) 100 ML 330 MG IV (14:59)
[2024-07-02] MEDS: 0.9% Saline Lock 10 ML Syringe IV ×3 (15:00→20:59)
[2024-07-02] MEDS: guaiFENesin 10 ML UDC (200MG/10ML) 20 ML GT ×2 (15:02→20:59)
[2024-07-02] MEDS: TITRATION PARAMETER CHANGE 1 EACH IV (15:12)
[2024-07-02 15:19] LABS: Hemoglobin A1c 5.9 % (3.8-5.6)
[2024-07-02 15:23] LABS: Troponin-I HS 78 pg/mL (3.0-78.0)
--- NOTE | 2024-07-02 15:35 | RAD_ITS ---
STUDY: XR Chest 1 View 07/02/2024 3:26 PM REASON FOR EXAM: Male, 79 years old. absent right breath sounds COMPARISON: Study done earlier today. TECHNIQUE: XR Chest 1 View FINDINGS: There is a right pleural effusion. There is bilateral infiltrate / atelectasis. There is a left sided pacemaker batterypack. ET tube in good position. NG tube in the region of the stomach. Cervical spine fusion hardware. Enlarged heart size. Normal mediastinum. Normal maria elena. Prominent appearing increased interstitial lung markings. Normal visualized pulmonary arteries. There is atherosclerotic calcification of the aortic arch with tortuosity. There are diffuse degenerative changes of the visualized thoracic spine. There is degenerative osteoarthritis of the bilateral shoulders. There are no acute findings of the upper abdomen. RAD/Chest 1 View (Portable) IMPRESSION: Right pleural effusion. Bilateral pneumonia worse on the right side. This appears worse. Electronically Signed: Yao Stephens MD at 16:06 EST Reading Location ID and State: [facility] / [place] , Service support ,
[2024-07-02 15:44] LABS: Allen Test Positive; Base Excess -2 mmol/L (-2 to +2); Bicarbonate 23.3 mmol/L (22-26); Blood Gas Specimen Type ART; Mode AC; O2 Delivery Device ET Tube; PEEP 8; PO2 139 mmHG (75-100); RR 12; SITE L Radial; SO2 99 % (95-99); Total Carbon Dioxide 25 mmol/L; pCO2 41.7 mmHg (35-45); pH 7.36 (7.35-7.45)
[2024-07-02] MEDS: Ipratropium/Albuterol Sulfate 3 ML AMPUL.NEB INHALATION ×3 (15:45→22:30)
[2024-07-02] MEDS: Potassium Chloride Oral Soln 20 MEQ/15 ML UDC 40 MEQ PO (16:52)
[2024-07-02] MEDS: Furosemide 40 MG/4 ML Vial IV (16:52)
[2024-07-02] MEDS: Magnesium Sulfate 4gm/100mL 4 GM/100 ML IV.SOLN. IV (16:53)
[2024-07-02 17:09] LABS: LDH 285 U/L (87-241)
[2024-07-02] MEDS: Insulin Lispro 100 UNIT/ML INSULN.PEN SC ×2 (17:59→23:03)
[2024-07-02 18:14] LABS: Bedside Glucose 248 mg/dL (74-106)
[2024-07-02] MEDS: Vancomycin HCl 2,000 MG in 0.9% Normal Saline (500mL Bag) 500 ML 250 MG IV (19:37)
[2024-07-02] MEDS: Gabapentin 600 MG Tablet PO (20:59)
[2024-07-02] MEDS: Rivaroxaban 20 MG Tablet GT (20:59)
[2024-07-02 23:26] LABS: Bedside Glucose 266 mg/dL (74-106)
[2024-07-03] VITALS (40 sets, daily range): BP systolic 92–131; BP diastolic 48–95; PULSE 60–75; RESP 12–19; TEMP 36.1–37.1; O2SAT 90–97; BMI 31.8
[2024-07-03] MEDS: Ipratropium/Albuterol Sulfate 3 ML AMPUL.NEB INHALATION ×5 (03:15→19:52)
[2024-07-03] MEDS: Propofol 10MG/Ml 1,000 MG/100 ML Bottle 13.8 MG CONT INF (03:46)
[2024-07-03 04:57] LABS: Hematocrit 34.7 % (40-54); Mean Corp Hgb Conc 31.7 g/dL (32-36); Platelet Count 135 K/mm3 (150-450); RBC Distribution Width CV 15.3 % (11.6-14.6); RBC Distribution Width SD 47.7 fl (35.1-43.9); Red Blood Count 4.08 M/mm3 (4.6-6.2)
[2024-07-03] MEDS: Insulin Lispro 100 UNIT/ML INSULN.PEN SC ×2 (05:08→16:26)
[2024-07-03] MEDS: Levothyroxine 88 MCG Tablet GT (05:08)
[2024-07-03] MEDS: Piperacil/Tazobactam 3.375 GM in 0.9% Normal Saline (50mL MB+) 50 ML IV ×2 (05:08→13:40)
[2024-07-03] MEDS: guaiFENesin 10 ML UDC (200MG/10ML) 20 ML GT (05:08)
[2024-07-03 05:11] LABS: Anion Gap 6 (5-15); BUN 17 mg/dL (7-18); BUN/Creat Ratio 19.9 RATIO (10-20); Calcium,Total 9.4 mg/dL (8.5-10.1); Chloride 112 mmol/L (98-107); Creatinine, Serum 0.85 mg/dL (0.70-1.30); EST Glomerular Filtration Rate 92 mL/min (>60); Est Glom Filt Rate - Afr Amer 111 mL/min (>60); Estimated Creatinine Clearance 86.84 ml/min; Glucose 238 mg/dL (74-106); Potassium 3.8 mmol/L (3.5-5.1); Sodium Level 142 mmol/L (136-145)
[2024-07-03] MEDS: TITRATION PARAMETER CHANGE 1 EACH IV (05:11)
[2024-07-03 05:32] LABS: Bedside Glucose 205 mg/dL (74-106)
[2024-07-03] MEDS: Vancomycin HCl 2,000 MG in 0.9% Normal Saline (500mL Bag) 500 ML 250 MG IV (06:31)
--- NOTE | 2024-07-03 07:56 | PCM.PN.INT ---
Assessment & Plan Assessment/Plan (1) Acute hypoxic respiratory failure: PLAN: Plan RECOMMENDATIONS: 1. Proceed with a trial of extubation this morning. 2. Once extubated, wean supplemental oxygen to maintain saturations at or above 90%. 3. Recommend formal speech therapy evaluation prior to advancement of diet. 4. Continue empiric antimicrobials. 5. Continue Xarelto per home regimen. 6. Continue bronchodilators and steroids. 7. Encourage incentive spirometer use and mobilize patient as tolerated. IMPRESSIONS: 1. Acute on chronic hypoxemic respiratory failure Secondary to multifocal pneumonia in the setting of COPD. The patient has improved from a respiratory perspective after being started on antimicrobials, bronchodilators and steroids. He has passed a spontaneous breathing trial and will therefore be extubated. Once extubated, wean supplemental oxygen as tolerated. In light of the concerns noted for possible aspiration, recommend formal speech therapy evaluation prior to advancement of diet. Otherwise, encourage incentive spirometer use and mobilize patient as tolerated. Resume nocturnal CPAP therapy per home regimen on a nightly basis. 2. 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 Continue home medications as indicated. Physical therapy to evaluate the patient. CODE STATUS: Full code TIME: 35 minutes of critical care time, independent of procedures, was spent addressing the patient's acute hypoxemic respiratory failure, review of all data and collaboration with the care team. Subjective Subjective The patient was seen and examined at the bedside this morning. Events from the last 24 hours have been reviewed. At the time my evaluation this morning of the patient, he was maintaining appropriate oxygen saturations on assist-control mode mechanical ventilation with an FiO2 requirement of 35% and PEEP of 5. The patient was on low-dose Levophed at 1 mcg/min to maintain hemodynamic stability. No endotracheal tube secretions were noted by respiratory therapy. The patient has been maintained on antimicrobials, steroids and Xarelto. Following my initial evaluation, the patient's sedation was placed on hold and he was initiated on a spontaneous breathing trial, which he tolerated without issue. The patient was alert, interactive and able to follow commands appropriately. Therefore, the decision was made to proceed with extubation. Once the patient's sedation was discontinued, his hemodynamic status improved significantly and his Levophed was discontinued. Objective Data Objective Data The patient's most recent lab work, culture data and imaging studies have all been personally reviewed. Surface echocardiogram from May 2024 demonstrated an ejection fraction of 55 to 60%. COVID, influenza and RSV PCR's were negative. Blood, urine and sputum cultures are pending. Vital Signs: Vital Signs Temp Pulse Resp BP Pulse Ox O2 Del Method FiO2 97.3 F L 60 14 99/55 L 92 Mechanical Ventilator 40 07/03/24 04:00 07/03/24 07:00 07/03/24 07:00 07/03/24 07:45 07/03/24 07:00 07/03/24 07:00 07/03/24 07:00 Oxygen Delivery Method Mechanical Ventilator Weight: 239 lb 13.807 oz Body Mass Index (BMI) 31.8 Intake & Output: Intake and Output for Last 24 Hours 07/01/24 07/02/24 07/03/24 23:59 23:59 23:59 Intake Total 5649.85 / 5725.55 351.32 / 351.32 Output Total 2465 / 2465 800 / 800 Balance 3184.85 / 3260.55 -448.68 / -448.68 Lab / Micro Data Attestation: I reviewed the patient's lab results. 07/03/24 04:50 07/03/24 04:50 Labs: Laboratory Results - last 24 hr 07/02/24 05:55: Hemoglobin A1c 5.9 H, Phosphorus 4.0, Magnesium 1.5 L, Procalcitonin 0.07 07/02/24 10:40: Lactic Acid 2.0 07/02/24 13:27: POC Glucose 186 H 07/02/24 14:30: Magnesium Cancelled 07/02/24 14:45: Troponin I High Sens 78 07/02/24 16:00: Lactate Dehydrogenase 285 H 07/02/24 17:56: POC Glucose 248 H 07/02/24 23:03: POC Glucose 266 H 07/03/24 04:50: WBC 17.0 H, RBC 4.08 L, Hgb 11.0 L, Hct 34.7 L, MCV 85.0, MCH 27.0, MCHC 31.7 L, RDW Std Deviation 47.7 H, RDW Coeff of Michelle 15.3 H, Plt Count 135 L, MPV 10.0, Sodium 142, Potassium 3.8, Chloride 112 H, Carbon Dioxide 25.0, Anion Gap 6, BUN 17, Creatinine 0.85, Estim Creat Clear Calc 86.84, Est GFR (MDRD) Af Amer 111, Est GFR (MDRD) Non-Af 92, BUN/Creatinine Ratio 19.9, Glucose 238 H, Calcium 9.4 07/03/24 05:07: POC Glucose 205 H Micro: Microbiology 07/02/24 08:35 Nasal Secretion MRSA (PCR) - Final Meth. resistant Staph. aureus 07/02/24 06:30 Urine, Clean Catch Legionella Antigen - Final 07/02/24 06:30 Urine, Clean Catch Streptococcus pneumoniae Antigen (M - Final 07/02/24 06:30 Mucosa - Nasopharyngeal SARS-CoV-2, Influenza & RSV (PCR) - Final ABG Data ABG results: ABG 07/02/24 15:40 Specimen Type ART Sample Site L Radial pH 7.36 Bicarbonate Actual 23.3 Total CO2 25 Base Excess -2 O2 Saturation 99 O2 % 60.0 ABG pCO2 41.7 ABG pO2 139 H Sudhir Test Positive Respiration Rate 12 O2 Delivery Device ET Tube Vent Mode AC Tidal Volume 450.0 POC PEEP 8 Radiography Diagnostic Testing: Radiology Impression Chest X-Ray 07/02/24 06:25 IMPRESSION: Patchy airspace disease developing in the right lung especially the right upper lobe. Findings may indicate pneumonia. Electronically Signed: Yao Tripathi MD at 7:30 EST , Chest/Abdomen/Pelvis CT 07/02/24 13:22 IMPRESSION: 1. Moderate right pleural effusion. Bilateral lower lobe infiltrates and a right upper lobe infiltrate suggesting pneumonia. 2. No visible calcified gallstones. However there is pericholecystic fluid. Acalculous cholecystitis is in the differential. 3. There is diffuse enlargement of the pancreas with alan-pancreatic edema suggesting acute pancreatitis. 4. Abdominal ascites. 5. There are wedge shaped areas of decreased perfusion in the right kidney. This is consistent for pyelonephritis. 6. Urinary bladder wall has wall thickening. This can be related to a partially contractile state. However, a cystitis is not excluded. Urinalysis should be performed in an effort to exclude cystitis. 7. There are calcifications of the coronary arteries. Electronically Signed: Yao Stephens MD at 15:31 EST , KUB X-Ray 07/02/24 13:25 IMPRESSION: Right pleural effusion. Bilateral pneumonia. NG tube noted. Tip in the region of the stomach. Electronically Signed: Yao Stephens MD at 15:00 EST , Chest X-Ray 07/02/24 15:35 IMPRESSION: Right pleural effusion. Bilateral pneumonia worse on the right side. This appears worse. Electronically Signed: Yao Stephens MD at 16:06 EST , Physical Exam Const Constitutional Narrative: Intubated, sedated and mechanically ventilated. Currently tolerating CPAP mode of mechanical ventilation. HEENT normocephalic and head/scalp atraumatic Mouth: endotracheal tube in place and OG tube in place Eyes PERRL, EOMs intact bilaterally and conjunctivae normal Neck supple General: trachea midline Chest inspection of chest normal Resp normal respiratory effort Auscultation: diminished lung sounds; Negative for rales, rhonchi or wheezes Cardio regular rate and regular rhythm GI normal to inspection, nondistended, normoactive bowel sounds Inspection: ostomy present Extremity General Extremity: edema bilateral lower extremity; Negative for clubbing Skin no rashes or lesions noted Neuro Sensorium / Orientation: sedated on vent Charges/Coding Procedures Hospitalists Procedures: 89437 Critical Care 1st Hr
--- NOTE | 2024-07-03 09:21 | CASEMGMT ---
Addendum entered by Dawn Sanchez 07/03/24 09:50: Social Work SW received a message back from [place]. SW informed that pt just started ostomy training, and no ostomy supplies have been ordered. Pt has had a walker ordered and delivered. Pt had a mobile O2 unit ordered through [employer] but it is still being processed, and no home health has been ordered yet. DARYL Jones Original Note: Social Work SW participated in ICU rounds. As per the H&P, pt was to be going home from [place] this week. SW spoke w/pt, pt confirms he was to be going home from [place] tomorrow. He states the last thing he needed to do was to demonstrate he knows how to manage his ostomy bag. He states everyone else has signed off on him. SW inquired if [facility] set up any home health, DME, home O2. Pt states he did not have home health. He states they were going to give him ostomy supplies and order some. In regard to his oxygen, he has a CPAP and was having oxygen bled through it prior to his hospital stay and stay at [place]. Pt was at [facility] in [place] for about a month, went to [place] 04/12/24. Pt has been here twice in May and went back to [place] each time. Pt tells SW his oxygen is through [employer]. Pt would prefer to go home from here if he could, states is to be home tomorrow for a [place] democrat. At one point pt did state to SW he is in [facility], SW reminded pt he is actually at [facility]. LALA did send updates to [place] in the event pt would need to return, they will take pt back. LALA sent a message via [employer] inquiring what had been set up for pt's going home. came in a short time later, SW verified what pt had told SW. Pt was to go home tomorrow from [place], she states there is no [place] democrat tomorrow however. She states would like to see how pt is getting around before deciding if pt should go home from here or back to [place]. is leaning more toward pt returning to [place] to make sure that nothing his missed on his discharge. She confirms [place] has a big box of supplies they plan to give him, and they were ordering additional supplies. She states he has a walker they ordered for him. Pt's home oxygen is through [facility], he already does have the Cpap and concentrator at home for the bleeding of O2 through the Cpap at night. She states [place] was working on getting portable O2 ordered for pt as he is needing the O2 at times during the day as well. She states that their home is set up well already, they have wider doorways in the home. She does know pt's swallowing needs tested before going home, explained he had radiation on the back of his tongue and they were aware his swallow may be impacted. She does acknowledge pt gets things confused at times. Plan is to be determined. Pt with either return to [place] and go home from there, or return home from there, and SW/CM will work to ensure all that is needed is set up for pt. DARYL Jones
[2024-07-03 12:31] LABS: Bedside Glucose 136 mg/dL (74-106)
[2024-07-03] MEDS: Pantoprazole Sodium 40 MG in 0.9% Normal Saline (100mL MB+) 100 ML 330 MG IV (13:07)
[2024-07-03] MEDS: Gabapentin 600 MG Tablet PO ×2 (13:40→18:30)
[2024-07-03 16:44] LABS: Bedside Glucose 197 mg/dL (74-106)
--- NOTE | 2024-07-03 17:48 | PN.HOSP_ITS ---
Reason for Visit Reason for Visit: Diagnoses Sepsis, unspecified organism (07/02/24) Pneumonia, unspecified organism (07/02/24) Acute respiratory failure with hypoxia (07/02/24) Subjective Subjective Patient was seen and examined today, he was extubated earlier this morning, he is alert and he was cleared for oral intake by speech therapy. I talked briefly with pulmonary medicine about his care. Objective Data Objective Data Vital Signs: Vital Signs Temp Pulse Resp BP Pulse Ox O2 Del Method O2 Flow Rate 98.0 F 63 14 123/56 H 93 Nasal Cannula 3 07/03/24 13:00 07/03/24 16:00 07/03/24 14:07 07/03/24 13:00 07/03/24 16:41 07/03/24 13:00 07/03/24 16:48 FiO2 40 07/03/24 08:00 Oxygen Flow Rate (L/min) 3 Oxygen Delivery Method Nasal Cannula Weight: 108.8 kg Body Mass Index (BMI) 31.8 Intake & Output: Intake and Output for Last 24 Hours 07/01/24 07/02/24 07/03/24 23:59 23:59 23:59 Intake Total 5649.85 / 5725.55 1051.32 / 1051.32 Output Total 2465 / 2465 1025 / 1025 Balance 3184.85 / 3260.55 26.32 / 26.32 Lab / Micro Data 07/03/24 04:50 07/03/24 04:50 Labs: Laboratory Results - last 24 hr 07/02/24 17:56: POC Glucose 248 H 07/02/24 23:03: POC Glucose 266 H 07/03/24 04:50: WBC 17.0 H, RBC 4.08 L, Hgb 11.0 L, Hct 34.7 L, MCV 85.0, MCH 27.0, MCHC 31.7 L, RDW Std Deviation 47.7 H, RDW Coeff of Michelle 15.3 H, Plt Count 135 L, MPV 10.0, Sodium 142, Potassium 3.8, Chloride 112 H, Carbon Dioxide 25.0, Anion Gap 6, BUN 17, Creatinine 0.85, Estim Creat Clear Calc 86.84, Est GFR (MDRD) Af Amer 111, Est GFR (MDRD) Non-Af 92, BUN/Creatinine Ratio 19.9, Glucose 238 H, Calcium 9.4 07/03/24 05:07: POC Glucose 205 H 07/03/24 12:08: POC Glucose 136 H 07/03/24 16:25: POC Glucose 197 H Micro: Microbiology 07/02/24 06:30 Urine Catheter - Miles Urine Culture - Preliminary Yeast Like Organism 07/02/24 07:00 Sputum, Induced/Lukens Respiratory Culture - Preliminary Staphylococcus aureus 07/02/24 08:35 Nasal Secretion MRSA (PCR) - Final Meth. resistant Staph. aureus 07/02/24 06:30 Urine, Clean Catch Legionella Antigen - Final 07/02/24 06:30 Urine, Clean Catch Streptococcus pneumoniae Antigen (M - Final 07/02/24 06:30 Mucosa - Nasopharyngeal SARS-CoV-2, Influenza & RSV (PCR) - Final Physical Exam Const alert, oriented x3 and no apparent distress General Appearance: cooperative, well kempt and well developed Orientation / Consciousness: awake, oriented to person, oriented to place and oriented to time HEENT normocephalic, head/scalp atraumatic and moist oral mucous membranes Eyes PERRL, EOMs intact bilaterally and conjunctivae normal Neck supple, no JVD, thyroid normal and no carotid bruits General: trachea midline Resp normal respiratory effort, no retractions and no use of accessory muscles Resp Narrative: Breath sounds are diminished bilaterally anteriorly Auscultation: Negative for rales, rhonchi or wheezes Cardio regular rate, regular rhythm, S1 normal heart sound, S2 normal heart sound, no murmurs, no rub and no gallops GI normal to inspection, nondistended, normoactive bowel sounds, soft to palpation, non-tender and non-distended Extremity no clubbing, cyanosis or edema Skin no rashes or lesions noted General Skin Exam: no breakdown Neuro oriented x3, CN's II-XII intact bilaterally, no focal motor deficits and no sensory deficits noted Sensorium / Orientation: awake and alert Speech: speech normal Psych affect normal Assessment & Plan Assessment/Plan (1) Pneumonia: PLAN: Plan 1. Septic shock secondary to right sided community-acquired bacterial pneumonia-organism unknown at this time, patient will remain on IV antibiotics and aerosol treatments, pulmonary medicine is elected to leave the patient on IV corticosteroids for now. #2 right sided community-acquired pneumonia-felt to be bacterial in nature- continue present antibiotic treatment #3 acute hypoxic respiratory failure secondary to right-sided community-acquired pneumonia, septic shock, and chronic obstructive pulmonary disease-patient is currently on nasal cannula oxygen at this time, pulmonary medicine is participating in his care #4 chronic obstructive pulmonary disease-patient is on IV Solu-Medrol and aerosol treatments #5 paroxysmal atrial fibrillation-patient is currently on Xarelto and rate limiting medication #6 hypothyroidism-patient is on Synthroid Patient appears stable for transfer to PCU at this time. Total clinical time spent by myself addressing the patient's medical issues, reviewing all of his data, and collaborating with patient's care team: 35 minutes Charges/Coding Visit Charges Inpatient E&M: 51725 Subs Hosp L2
[2024-07-03 19:32] LABS: Vancomycin, Trough Level 24.1 ug/mL (5.0-15.0)
--- NOTE | 2024-07-03 19:38 | PCM.RX.CS ---
Consult Antibiotic Management Pharmacy has been consulted to manage selected antibiotic: Vancomycin Type of Intervention Type of Consult: Follow-up Suspected Infection Suspected Infection: Pneumonia Labs Labs: Sodium 142 mmol/L (136-145) 07/03/24 04:50 Potassium 3.8 mmol/L (3.5-5.1) 07/03/24 04:50 Chloride 112 mmol/L (98-107) H 07/03/24 04:50 Carbon Dioxide 25.0 mmol/L (21.0-32.0) 07/03/24 04:50 Anion Gap 6 (5-15) 07/03/24 04:50 BUN 17 mg/dL (7-18) 07/03/24 04:50 Creatinine 0.85 mg/dL (0.70-1.30) 07/03/24 04:50 Est GFR (MDRD) Af Amer 111 mL/min (>60) 07/03/24 04:50 Est GFR (MDRD) Non-Af 92 mL/min (>60) 07/03/24 04:50 BUN/Creatinine Ratio 19.9 RATIO (10-20) 07/03/24 04:50 Glucose 238 mg/dL (74-106) H 07/03/24 04:50 Vancomycin Trough 24.1 ug/mL (5.0-15.0) H 07/03/24 18:19 Microbiology Microbiology: Microbiology 07/02/24 07:00 Sputum, Induced/Lukens Gram Stain - Final 07/02/24 07:00 Sputum, Induced/Lukens Respiratory Culture - Preliminary Staphylococcus aureus 07/02/24 06:30 Urine Catheter - Miles Urine Culture - Preliminary Yeast Like Organism 07/02/24 08:35 Nasal Secretion MRSA (PCR) - Final Meth. resistant Staph. aureus 07/02/24 06:30 Urine, Clean Catch Legionella Antigen - Final 07/02/24 06:30 Urine, Clean Catch Streptococcus pneumoniae Antigen (M - Final 07/02/24 06:30 Mucosa - Nasopharyngeal SARS-CoV-2, Influenza & RSV (PCR) - Final Goal Trough Goal Trough: 15-20 mcg/mL Pharmacy Plan for Drug Dosing Pharmacy Plan for Drug Dosing: VANCOMYCIN LEVEL RECEIVED Current Vancomycin Dose: 2000mg Q12H Number of Doses Received: 2000mg x3 Vancomycin Level: 24.1 Hours Since Last Dose: 11.75 Renal Function: sCr 0.85 Renal Function Trend: stable Lab/Micro: pending Vancomycin Plan/Comments: HOLD Vancomycin until level is < 20 Pending Level: Random Vancomycin level @ 06:00 07/04/24 Pharmacy Service will continue to monitor and adjust dosing as required. Follow-Up Labs Follow-Up Labs: Trough: Vancomycin (07/04/24 @ 06:00)
[2024-07-03] MEDS: Tamsulosin HCl 0.4 MG Capsule 0.8 MG PO (20:54)
[2024-07-04] VITALS (14 sets, daily range): BP systolic 116–122; BP diastolic 63–75; PULSE 60–67; RESP 16–20; TEMP 36.3–36.8; O2SAT 94–98; BMI 31.4
[2024-07-04] MEDS: Insulin Lispro 100 UNIT/ML INSULN.PEN SC ×5 (00:01→20:34)
[2024-07-04] MEDS: Nystatin Powder 15gm Bottle 1 APPLIC TOPICAL ×3 (00:02→20:22)
[2024-07-04] MEDS: Pantoprazole Sodium 40 MG Tablet PO ×3 (00:03→20:23)
[2024-07-04] MEDS: Piperacil/Tazobactam 3.375 GM in 0.9% Normal Saline (50mL MB+) 50 ML IV ×4 (00:03→20:24)
[2024-07-04] MEDS: Rivaroxaban 20 MG Tablet GT ×2 (00:03→20:23)
[2024-07-04] MEDS: 0.9% Saline Lock 10 ML Syringe IV ×6 (00:05→20:33)
[2024-07-04] MEDS: Gabapentin 600 MG Tablet PO ×5 (00:13→20:19)
[2024-07-04] MEDS: Ipratropium/Albuterol Sulfate 3 ML AMPUL.NEB INHALATION ×6 (00:35→22:46)
[2024-07-04 02:47] LABS: Bedside Glucose 155 mg/dL (74-106)
--- NOTE | 2024-07-04 05:18 | CPS ---
pt wasn't comfortable on cpap, sleep lab machine with new nasal pillow set up. Pt wanted off cpap after 2AM
[2024-07-04 06:30] LABS: Vancomycin, Random Level 14.2 ug/mL (0.0-15.0)
--- NOTE | 2024-07-04 06:40 | PCM.RX.CS ---
Consult Antibiotic Management Pharmacy has been consulted to manage selected antibiotic: Vancomycin Type of Intervention Type of Consult: Follow-up Suspected Infection Suspected Infection: Pneumonia Labs Labs: Sodium 142 mmol/L (136-145) 07/03/24 04:50 Potassium 3.8 mmol/L (3.5-5.1) 07/03/24 04:50 Chloride 112 mmol/L (98-107) H 07/03/24 04:50 Carbon Dioxide 25.0 mmol/L (21.0-32.0) 07/03/24 04:50 Anion Gap 6 (5-15) 07/03/24 04:50 BUN 17 mg/dL (7-18) 07/03/24 04:50 Creatinine 0.85 mg/dL (0.70-1.30) 07/03/24 04:50 Est GFR (MDRD) Af Amer 111 mL/min (>60) 07/03/24 04:50 Est GFR (MDRD) Non-Af 92 mL/min (>60) 07/03/24 04:50 BUN/Creatinine Ratio 19.9 RATIO (10-20) 07/03/24 04:50 Glucose 238 mg/dL (74-106) H 07/03/24 04:50 Vancomycin Trough 24.1 ug/mL (5.0-15.0) H 07/03/24 18:19 Random Vancomycin 14.2 ug/mL (0.0-15.0) 07/04/24 05:58 Microbiology Microbiology: Microbiology 07/02/24 06:00 Blood Culture (Wb) - Anticubital Left Blood Culture - Preliminary No growth in 48 hours. 07/02/24 05:55 Blood Culture (Wb) - Anticubital Right Blood Culture - Preliminary No growth in 48 hours. 07/02/24 07:00 Sputum, Induced/Lukens Gram Stain - Final 07/02/24 07:00 Sputum, Induced/Lukens Respiratory Culture - Preliminary Staphylococcus aureus 07/02/24 06:30 Urine Catheter - Miles Urine Culture - Preliminary Yeast Like Organism 07/02/24 08:35 Nasal Secretion MRSA (PCR) - Final Meth. resistant Staph. aureus 07/02/24 06:30 Urine, Clean Catch Legionella Antigen - Final 07/02/24 06:30 Urine, Clean Catch Streptococcus pneumoniae Antigen (M - Final 12/22/24 06:30 Mucosa - Nasopharyngeal SARS-CoV-2, Influenza & RSV (PCR) - Final Pharmacy Plan for Drug Dosing Pharmacy Plan for Drug Dosing: VANCOMYCIN LEVEL RECEIVED Current Vancomycin Dose: held, previously 2000mg q12 Number of Doses Received: 3 Vancomycin Level: 14.2 mg/dL Hours Since Last Dose: 23.5 Renal Function: from 07/03 SCr 0.85 mg/dL Renal Function Trend: improved from SCr 0.94 mg/dL Lab/Micro: sputum cx with staph Vancomycin Plan/Comments: 23.5 hour random level is now subtherapeutic at 14.2 mg/dL (goal 15-20). Will restart dosing at 1500mg Q12 and get a level prior to 4th dose of new regimen. Pending Level: 07/05/24 @ 1830 Pharmacy Service will continue to monitor and adjust dosing as required.
[2024-07-04] MEDS: Levothyroxine 88 MCG Tablet GT (06:48)
[2024-07-04 07:28] LABS: Bedside Glucose 170 mg/dL (74-106)
[2024-07-04] MEDS: Vancomycin HCl 1,500 MG in 0.9% Normal Saline (500mL Bag) 500 ML 250 MG IV ×2 (09:03→18:23)
--- NOTE | 2024-07-04 10:20 | PN.CC_ITS ---
Assessment & Plan Assessment/Plan (1) Acute hypoxic respiratory failure: PLAN: Plan RECOMMENDATIONS: 1. Supplemental oxygen to maintain saturations at or above 90%. 2. Continue empiric antimicrobials, pending finalized culture results. 3. Continue Xarelto per home regimen. 4. Continue bronchodilators. 5. Okay to discontinue IV steroids and transition to prednisone 40 mg daily to complete a 5-day burst. 6. Encourage incentive spirometer use and mobilize patient as tolerated. IMPRESSIONS: 1. Acute on chronic hypoxemic respiratory failure Secondary to multifocal staphylococcal pneumonia in the setting of COPD. The patient has improved from a respiratory perspective after being started on antimicrobials, bronchodilators and steroids. He was ultimately able to be extubated on July 03. Recommend continuing to wean supplemental oxygen to maintain saturations at or above 90%. Encourage incentive spirometer use and mobilize patient as tolerated. The patient is IV steroids will be transition to prednisone 40 mg daily, with plans to complete a 5-day burst. Continue nocturnal CPAP therapy per home regimen on a nightly basis along with 3 L/min of supplemental oxygen. 2. 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 Continue home medications as indicated. Physical therapy to work with the patient. CODE STATUS: Full code This note was generated with eXelate dictation software. It may contain incorrect words, spelling, and punctuation that were not noted in checking the note before signing. Subjective Subjective The patient was seen and examined at the bedside this morning. Events from the last 24 hours have been reviewed. The patient is currently afebrile, hemodynamically stable and maintaining appropriate oxygen saturations on 3 L/min via nasal cannula. The patient seems anxious to be discharged home in time for [place]. Objective Data Objective Data The patient's most recent lab work, culture data and imaging studies have all been personally reviewed. Sputum culture is currently demonstrating growth of 3+ Staph aureus. Vital Signs: Vital Signs Temp Pulse Resp BP Pulse Ox O2 Del Method O2 Flow Rate 97.9 F 63 18 116/63 95 Nasal Cannula 3 07/04/24 07:04 07/04/24 07:12 07/04/24 07:12 07/04/24 07:04 07/04/24 07:55 07/04/24 07:12 07/04/24 07:55 FiO2 40 07/03/24 08:00 Oxygen Flow Rate (L/min) 3 Oxygen Delivery Method Nasal Cannula Weight: 236 lb 15.951 oz Body Mass Index (BMI) 31.4 Intake & Output: Intake and Output for Last 24 Hours 07/02/24 07/03/24 07/04/24 23:59 23:59 23:59 Intake Total 5649.85 / 5725.55 1101.32 / 1101.32 50 / 50 Output Total 2465 / 2465 1250 / 1250 625 / 625 Balance 3184.85 / 3260.55 -148.68 / -148.68 -575 / -575 Lab / Micro Data Attestation: I reviewed the patient's lab results. 07/03/24 04:50 07/03/24 04:50 Labs: Laboratory Results - last 24 hr 07/03/24 12:08: POC Glucose 136 H 07/03/24 16:25: POC Glucose 197 H 07/03/24 18:19: Vancomycin Trough 24.1 H 07/03/24 23:58: POC Glucose 155 H 07/04/24 05:58: Random Vancomycin 14.2 07/04/24 06:57: POC Glucose 170 H Micro: Microbiology 07/02/24 07:00 Sputum, Induced/Lukens Gram Stain - Final 07/02/24 07:00 Sputum, Induced/Lukens Respiratory Culture - Preliminary Staphylococcus aureus 07/02/24 06:00 Blood Culture (Wb) - Anticubital Left Blood Culture - Preliminary No growth in 48 hours. 07/02/24 05:55 Blood Culture (Wb) - Anticubital Right Blood Culture - Preliminary No growth in 48 hours. 07/02/24 06:30 Urine Catheter - Miles Urine Culture - Preliminary Yeast Like Organism 07/02/24 08:35 Nasal Secretion MRSA (PCR) - Final Meth. resistant Staph. aureus 07/02/24 06:30 Urine, Clean Catch Legionella Antigen - Final 07/02/24 06:30 Urine, Clean Catch Streptococcus pneumoniae Antigen (M - Final 07/02/24 06:30 Mucosa - Nasopharyngeal SARS-CoV-2, Influenza & RSV (PCR) - Final Physical Exam Const alert and no apparent distress Constitutional Narrative: Sitting in bedside recliner. General Appearance: cooperative HEENT normocephalic, head/scalp atraumatic and moist oral mucous membranes Eyes PERRL, EOMs intact bilaterally and conjunctivae normal Neck supple General: trachea midline Chest inspection of chest normal Resp normal respiratory effort Auscultation: diminished lung sounds; Negative for rales, rhonchi or wheezes Cardio regular rate and regular rhythm GI normal to inspection, nondistended, normoactive bowel sounds Inspection: ostomy present Extremity General Extremity: edema bilateral lower extremity; Negative for clubbing Skin no rashes or lesions noted Neuro CN's II-XII intact bilaterally, moves all extremities and no focal motor deficits Psych cooperative and affect normal Charges/Coding Visit Charges Inpatient E&M: 70996 Subs Hosp L2
[2024-07-04 11:54] LABS: Bedside Glucose 265 mg/dL (74-106)
--- NOTE | 2024-07-04 13:19 | WOUNDNOTE ---
Was consulted on patient for ostomy. patient has had stoma since March of this year. pt is currently off the unit for cookie swallow.
--- NOTE | 2024-07-04 13:36 | ST.MBS ---
Modified Barium Swallow Patient Information Study Date: 07/04/24 Study Time: 13:00 Direct Billable Minutes: 120 Total Minutes procedure & reportin Diagnosis: oropharyngeal dysphagia R13.12 Referring Physician: Raman Hoyos Reason for Referral: Objectively assess swallow function, assess risk for aspiration, and determine recommendations for least restrictive diet textures and compensatory strategies to improve safety of swallow.? Medical History: An 79-year-old male presented to [facility] ED on 07/02/2024 from a shelter facility with acute respiratory failure and significant respiratory distress, requiring emergent intubation. 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 Despite these events, he had been stable and preparing for discharge home before this episode. The night prior, he ate a large meal without issue but was found in acute distress overnight. Post-intubation, a chest x-ray revealed patchy airspace disease in the right upper lobe, suggesting aspiration pneumonia. A speech therapy consult was requested due to concerns about swallowing difficulties. Given his history of head and neck cancer, COPD, and aspiration risk, a modified barium swallow study was recommended to guide further management. Current Diet Ordered: Regular/Thin Mental Status: WNL Respiratory Status: Oxygenating on 3L/M nasal cannula Penetration-Aspiration Scale Penetration-Aspiration Scale: OBJECTIVE ASSESSMENT OF SWALLOW FUNCTION (QUANTITATIVE ? PER TRIAL): PENETRATION / ASPIRATION SCALE (NICOLAS): 1 = does not enter airway 2 = enters airway/above vocal folds/ejected 3 = enters airway/above vocal folds/not ejected 4 = enters airway/contacts vocal folds/ejected 5 = enters airway/contacts vocal folds/not ejected 6 = enters airway/below vocal folds/ejected 7 = enters airway/below vocal folds/not ejected despite effort 8 = enters airway/below vocal folds/no effort VIDEOFLOROSCOPIC SCALE SCORE (NICOLAS): Grade I = aspiration of material that has penetrated into the laryngeal vestibule, intact cough reflex Grade II = aspiration < 10 % of the bolus, intact cough reflex Grade III = aspiration of < 10 % of the bolus, reduced cough reflex or aspiration of > 10 % of the bolus, intact cough reflex Grade IV = aspiration of > 10 % of the bolus, reduced cough reflex Penetration-Aspiration Scale Score Thin Liquid via teaspoon: Result: 2= enter airway/above vocal folds/ejected Thin Liquid via small single sip: cup: Result: 5= enters airways/contacts vocal folds/not ejected Comment: Penetration to the vocal cords was observed on the second swallow due to a significant amount of pharyngeal residue in the vallecula and pyriforms remaining post-swallow. Thin Liquid via small single sip: cup Trial 2: Result: 3= enters airways/above vocal folds/not ejected Pettit Thick Liquid via small single sip: cup: Result: 3= enters airways/above vocal folds/not ejected Thin Liquid via small single sip: cup Trial 3: Result: 5= enters airways/contacts vocal folds/not ejected Comment: Penetration to the vocal cords was observed on the second swallow due to a significant amount of pharyngeal residue in the vallecula and pyriforms remaining post-swallow. Honey Thick Liquid via small single sip: cup: Result: 3= enters airways/above vocal folds/not ejected Pudding: Result: 2= enter airway/above vocal folds/ejected Cookie: Result: 1= does not enter airway Thin Liquid via small single sip: cup Double swallow: Result: 3= enters airways/above vocal folds/not ejected Thin Liquid via small single sip: cup Double swallow Trial 2: Result: 3= enters airways/above vocal folds/not ejected Oral Phase Labial Seal: No Labial Escape Tongue Control During Bolus Hold: Escape to lateral buccal cavity/floor of mouth Bolus Preparation/Mastication: Disorganized chewing/mashing with solid pieces of bolus unchewed Bolus Transport/Lingual Motion: Slowed tongue motion Oral Residue: Trace residue lining oral structures Pharyngeal Phase Initiation of Pharyngeal Swallow: Bolus head in pyriforms Soft Palate Elevation: No bolus between soft palate and pharyngeal wall Laryngeal Elevation: Partial superior movement thyroid cart/partial apprx aryt-epig petiole Anterior Hyoid Excursion: Partial anterior movement Epiglottic Movement: Partial inversion Laryngeal Vestibule Closure at Height of Swallow: Incomplete; narrow column of air/contrast in laryngeal vestibule Pharyngeal Stripping Wave: Present - diminished Pharyngoesophageal Segment Opening: Parital distension and partial duration; parital obstruction of flow Tongue Base Retraction: Wide column of contrast between tongue base & post. pharyngeal wall Pharyngeal Residue: Majority of contrast within or on pharyngeal structures Diagnosis/Impression Diagnosis: moderate oropharyngeal dysphagia R13.12 Impression: The patient presents with moderate oropharyngeal dysphagia, likely secondary to a history of head and neck cancer (with subsequent chemotherapy and radiation) and COPD. Clinical findings include mild oral deficits and moderate pharyngeal deficits. Mastication of a Chandrika Doone cookie was slowed. Oral residue occasionally spilling into the vallecula. Pharyngeal deficits include penetration attributed to delayed pharyngeal onset timing, with the bolus to the pyriform sinuses before swallow initiation. Airway protection is reduced due to reduced laryngeal elevation, incomplete laryngeal closure, diminished anterior hyoid excursion, and decreased epiglottic inversion. Significant pharyngeal residue was observed in the vallecula and pyriform sinuses, with post-swallow spillage into the airway after the second swallow. This residue, likely due to reduced tongue base retraction, pharyngeal stripping wave, and UES opening, poses a high risk for post-prandial penetration and aspiration. The patient's history of radiation therapy suggests poor pharyngeal motility as a contributing factor. UNDERGROUND HEAVY EQUIPMENT OPERATOR attempted compensatory strategies, including an effortful swallow, dry swallows, and a chin tuck, but these were largely ineffective in reducing pharyngeal residue. Residual cookie in the vallecula was eventually cleared with a combination of these strategies and liquid washes. Given the significant residue across all consistencies (thin and thickened liquids), UNDERGROUND HEAVY EQUIPMENT OPERATOR recommends a diet downgrade to minced and moist textures to aid pharyngeal clearance. Thin liquids may be continued with the use of double swallows and intermittent cough with re-swallow. Should the patient experience worsening respiratory status or recurrent aspiration pneumonia, reconsult speech therapy for alternative recommendations. Recommendations Diet: Mechanical Soft Textures and Thin Liquids Compensatory Strategies: Small Bites, Small Sips (intermittent cough and re-swallow), Slow Rate, Feed only when alert, Multiple Swallows, Alternate bites/solids and sips/liquids, Sitting upright and Remain sitting upright for 30 minutes after PO intake Recommend Repeat Modified Barium Swallow: Yes Need for Skilled Speech Therapy Services: Yes Education Completed: 1. Described result of evaluation. and 2. Pt understands evaluation & agrees with goals and treatment plan. Status Active ST Patient: Active Contact Information [facility] Speech Therapy:: Radha Mi M.A. [facility]UN[facility]GROUND HEAVY EQUIPMENT OPERATOR Speech-Language Pathologist [facility] [address] [place] [address] [email or web address] [phone]
--- NOTE | 2024-07-04 13:42 | WOUNDNOTE ---
Pt back from [facility]. patient wanted this nurse to assess the appliance. states it had just been changed Wednesday so does not want the appliance changed at this time. pt has boxes of supplies from the [facility] that pts family brought in. Pt would like to continue to use the supplies that he has. home health will be able to order the supplies since the numbers are on the boxes. will plan to change the appliance again with patient on of patient is still inpatient. If not, home health care can continue teaching with patient and family. pt states the had started the teaching at the [facility]. no further needs voiced at this time.
--- NOTE | 2024-07-04 14:34 | CASEMGMT ---
Discharge Planning HH referral sent to [facility], [facility], and [facility]. Maryjane Srinivasan DC Planning Asst.
--- NOTE | 2024-07-04 14:39 | CASEMGMT ---
Addendum entered by Britany Mosher 07/04/24 15:41: Patient has been accepted by [facility] and [facility]. ISIAH TODD in to updated patient and . Patient and prefer [facility]. ISIAH TODD updated by that they have a neighbor that has a POC that they are able to borrow on day if discharge if needed as a back up. ISIAH TODD advised patient and that CM will make sure oxygen and equipment is setup with [facility] and that if they would like to use POC as back up they can but oxygen orders will still need to be sent to [facility] for appropriate setup. Patient and voiced understanding. ISIAH TODD updated [facility] that they are agency of choice and asked for anticipated start of care. CM will continue to follow this patient and plan for a safe discharge. Original Note: ISIAH TODD updated by hospitalist that patient wishes to discharge home. ISIAH TODD called LALA Skelton at [facility] to discuss oxygen setup and check progress. Per Paulina, still awaiting insurance approval for portable oxygen tanks with [facility]. ISIAH TODD inquired about ostomy supplies and HHC. Nafisa states those items were not setup as she did not have a discharge date. ISIAH TODD called [facility] to inquire about status of portable oxygen. [facility] is closed today and tomorrow for and will return on . ISIAH TODD updated hospitalist, discharge planned for pending oxygen setup. ISIAH TODD inquired about ostomy supplies with wound nurse. has supplies from [facility] and HHC will need to reorder supplies once established. ISIAH TODD in to discuss discharge planning with patient and . RN PEYTON updated patient and regarding [facility] being closed and unable to setup home oxygen at discharge, and patient frustrated but voiced understanding. RN CM discuss HHC setup and provided list. Patient and prefer 1. [facility] 2. [facility] 3. [facility]. Patient and denied further questions or needs. ISIAH TODD updated patient and that referrals would be sent to HHC agencies and that home oxygen setup could be started on . RN PEYTON updated patient and that CM will continue to follow this patient and plan for a safe discharge.
[2024-07-04 17:21] LABS: Bedside Glucose 190 mg/dL (74-106)
--- NOTE | 2024-07-04 17:40 | PCM.PN.HOSP ---
Reason for Visit Reason for Visit: Diagnoses Sepsis, unspecified organism (07/02/24) Pneumonia, unspecified organism (07/02/24) Acute respiratory failure with hypoxia (07/02/24) Subjective Subjective Patient was seen and examined today, he was hopeful that he could go home for [place], however the patient's oxygen cannot be set up at home until and he also needs ostomy supplies. Patient is currently on 3 L via nasal cannula, sputum grew out methicillin resistant Staph aureus. Patient was changed to prednisone today from Solu-Medrol. Objective Data Objective Data Vital Signs: Vital Signs Temp Pulse Resp BP Pulse Ox O2 Del Method O2 Flow Rate 97.4 F L 60 16 122/68 H 96 Nasal Cannula 3 07/04/24 14:29 07/04/24 14:29 07/04/24 14:29 07/04/24 14:29 07/04/24 14:29 07/04/24 15:53 07/04/24 15:53 FiO2 40 07/03/24 08:00 Oxygen Flow Rate (L/min) 3 Oxygen Delivery Method Nasal Cannula Weight: 107.5 kg Body Mass Index (BMI) 31.4 Intake & Output: Intake and Output for Last 24 Hours 07/02/24 07/03/24 07/04/24 23:59 23:59 23:59 Intake Total 5649.85 / 5725.55 1101.32 / 1101.32 630 / 630 Output Total 2465 / 2465 1250 / 1250 1025 / 1025 Balance 3184.85 / 3260.55 -148.68 / -148.68 -395 / -395 Lab / Micro Data 07/03/24 04:50 07/03/24 04:50 Labs: Laboratory Results - last 24 hr 07/03/24 18:19: Vancomycin Trough 24.1 H 07/03/24 23:58: POC Glucose 155 H 07/04/24 05:58: Random Vancomycin 14.2 07/04/24 06:57: POC Glucose 170 H 07/04/24 11:27: POC Glucose 265 H 07/04/24 16:49: POC Glucose 190 H Micro: Microbiology 07/02/24 06:30 Urine Catheter - Miles Urine Culture - Final Presumptive C albicans 07/02/24 07:00 Sputum, Induced/Lukens Gram Stain - Final 07/02/24 07:00 Sputum, Induced/Lukens Respiratory Culture - Preliminary Staphylococcus aureus 07/02/24 06:00 Blood Culture (Wb) - Anticubital Left Blood Culture - Preliminary No growth in 48 hours. 07/02/24 05:55 Blood Culture (Wb) - Anticubital Right Blood Culture - Preliminary No growth in 48 hours. 07/02/24 08:35 Nasal Secretion MRSA (PCR) - Final Meth. resistant Staph. aureus 07/02/24 06:30 Urine, Clean Catch Legionella Antigen - Final 07/02/24 06:30 Urine, Clean Catch Streptococcus pneumoniae Antigen (M - Final 07/02/24 06:30 Mucosa - Nasopharyngeal SARS-CoV-2, Influenza & RSV (PCR) - Final Physical Exam Narrative alert, oriented x3 and no apparent distress General Appearance: cooperative, well kempt and well developed Orientation / Consciousness: awake, oriented to person, oriented to place and oriented to time HEENT normocephalic, head/scalp atraumatic and moist oral mucous membranes Eyes PERRL, EOMs intact bilaterally and conjunctivae normal Neck supple, no JVD, thyroid normal and no carotid bruits General: trachea midline Resp normal respiratory effort, no retractions and no use of accessory muscles Resp Narrative: Breath sounds are diminished bilaterally anteriorly Auscultation: Negative for rales, rhonchi or wheezes Cardio regular rate, regular rhythm, S1 normal heart sound, S2 normal heart sound, no murmurs, no rub and no gallops GI normal to inspection, nondistended, normoactive bowel sounds, soft to palpation, non-tender and non-distended Extremity no clubbing, cyanosis or edema Skin no rashes or lesions noted General Skin Exam: no breakdown Neuro oriented x3, CN's II-XII intact bilaterally, no focal motor deficits and no sensory deficits noted Sensorium / Orientation: awake and alert Speech: speech normal Psych affect normal Assessment & Plan Assessment/Plan (1) Sepsis: (2) Pneumonia: PLAN: Plan 1. Septic shock secondary to right sided community-acquired bacterial pneumonia from methicillin-resistant Staph aureus- patient will remain on IV antibiotics and aerosol treatments, patient is currently on oral prednisone #2 right sided community-acquired pneumonia from methicillin resistant Staph aureus-I have elected to continue the patient's present antibiotics. #3 acute hypoxic respiratory failure secondary to right-sided community-acquired pneumonia, septic shock, and chronic obstructive pulmonary disease-patient is currently on nasal cannula oxygen at this time, pulmonary medicine is participating in his care #4 chronic obstructive pulmonary disease-patient is on IV Solu-Medrol and aerosol treatments #5 paroxysmal atrial fibrillation-patient is currently on Xarelto and rate limiting medication #6 hypothyroidism-patient is on Synthroid Patient appears stable for transfer to PCU at this time. Total clinical time spent by myself addressing the patient's medical issues, reviewing all of his data, and collaborating with patient's care team: 35 minutes Charges/Coding Visit Charges Inpatient E&M: 39864 Subs Hosp L2
[2024-07-04] MEDS: Tamsulosin HCl 0.4 MG Capsule 0.8 MG PO (20:23)
[2024-07-04 23:37] LABS: Bedside Glucose 185 mg/dL (74-106)
[2024-07-05] VITALS (12 sets, daily range): BP systolic 110–128; BP diastolic 61–74; PULSE 59–63; RESP 16–20; TEMP 36.4–37.1; O2SAT 96–97; BMI 32.8
[2024-07-05] MEDS: Piperacil/Tazobactam 3.375 GM in 0.9% Normal Saline (50mL MB+) 50 ML IV ×3 (06:34→22:45)
[2024-07-05] MEDS: Levothyroxine 88 MCG Tablet GT (06:35)
[2024-07-05 07:04] LABS: Bedside Glucose 124 mg/dL (74-106)
[2024-07-05] MEDS: predniSONE 20 MG Tablet 40 MG PO (08:09)
[2024-07-05] MEDS: Pantoprazole Sodium 40 MG Tablet PO ×2 (08:10→22:45)
[2024-07-05] MEDS: Tamsulosin HCl 0.4 MG Capsule 0.8 MG PO (08:10)
[2024-07-05] MEDS: Nystatin Powder 15gm Bottle 1 APPLIC TOPICAL ×2 (08:10→22:45)
[2024-07-05] MEDS: Gabapentin 600 MG Tablet PO ×4 (08:14→22:45)
[2024-07-05] MEDS: Vancomycin HCl 1,500 MG in 0.9% Normal Saline (500mL Bag) 500 ML 250 MG IV ×2 (10:31→19:59)
[2024-07-05] MEDS: Ipratropium/Albuterol Sulfate 3 ML AMPUL.NEB INHALATION ×3 (10:51→23:20)
[2024-07-05] MEDS: Insulin Lispro 100 UNIT/ML INSULN.PEN SC ×3 (11:14→22:46)
[2024-07-05 11:33] LABS: Bedside Glucose 263 mg/dL (74-106)
--- NOTE | 2024-07-05 15:02 | PCM.PN.HOSP ---
Reason for Visit Reason for Visit: Diagnoses Sepsis, unspecified organism (07/02/24) Pneumonia, unspecified organism (07/02/24) Acute respiratory failure with hypoxia (07/02/24) Subjective Subjective Patient was seen and examined today, he is currently on 3 L of oxygen via nasal cannula. Patient has no complaints today to this examiner Objective Data Objective Data Vital Signs: Vital Signs Temp Pulse Resp BP Pulse Ox O2 Del Method O2 Flow Rate 98.1 F 60 18 110/66 97 Nasal Cannula 3 07/05/24 14:03 07/05/24 14:03 07/05/24 14:03 07/05/24 14:03 07/05/24 14:03 07/05/24 14:03 07/05/24 14:03 FiO2 40 07/03/24 08:00 Oxygen Flow Rate (L/min) 3 Oxygen Delivery Method Nasal Cannula Weight: 112.4 kg Body Mass Index (BMI) 32.8 Intake & Output: Intake and Output for Last 24 Hours 07/03/24 07/04/24 07/05/24 23:59 23:59 23:59 Intake Total 1101.32 / 1101.32 1210 / 1410 1130 / 1130 Output Total 1250 / 1250 1175 / 2225 1250 / 1250 Balance -148.68 / -148.68 35 / -815 -120 / -120 Lab / Micro Data 07/03/24 04:50 07/03/24 04:50 Labs: Laboratory Results - last 24 hr 07/04/24 16:49: POC Glucose 190 H 07/04/24 20:33: POC Glucose 185 H 07/05/24 06:39: POC Glucose 124 H 07/05/24 11:14: POC Glucose 263 H Micro: Microbiology 07/02/24 07:00 Sputum, Induced/Lukens Gram Stain - Final 07/02/24 07:00 Sputum, Induced/Lukens Respiratory Culture - Final Meth. resistant Staph. aureus 07/02/24 06:30 Urine Catheter - Miles Urine Culture - Final Presumptive C albicans 07/02/24 06:00 Blood Culture (Wb) - Anticubital Left Blood Culture - Preliminary No growth in 48 hours. 07/02/24 05:55 Blood Culture (Wb) - Anticubital Right Blood Culture - Preliminary No growth in 48 hours. 07/02/24 08:35 Nasal Secretion MRSA (PCR) - Final Meth. resistant Staph. aureus 07/02/24 06:30 Urine, Clean Catch Legionella Antigen - Final 07/02/24 06:30 Urine, Clean Catch Streptococcus pneumoniae Antigen (M - Final 07/02/24 06:30 Mucosa - Nasopharyngeal SARS-CoV-2, Influenza & RSV (PCR) - Final Physical Exam Narrative alert, oriented x3 and no apparent distress General Appearance: cooperative, well kempt and well developed Orientation / Consciousness: awake, oriented to person, oriented to place and oriented to time HEENT normocephalic, head/scalp atraumatic and moist oral mucous membranes Eyes PERRL, EOMs intact bilaterally and conjunctivae normal Neck supple, no JVD, thyroid normal and no carotid bruits General: trachea midline Resp normal respiratory effort, no retractions and no use of accessory muscles Resp Narrative: Breath sounds are diminished bilaterally anteriorly Auscultation: Negative for rales, rhonchi or wheezes Cardio regular rate, regular rhythm, S1 normal heart sound, S2 normal heart sound, no murmurs, no rub and no gallops GI normal to inspection, nondistended, normoactive bowel sounds, soft to palpation, non-tender and non-distended Extremity no clubbing, cyanosis or edema Skin no rashes or lesions noted General Skin Exam: no breakdown Neuro oriented x3, CN's II-XII intact bilaterally, no focal motor deficits and no sensory deficits noted Sensorium / Orientation: awake and alert Speech: speech normal Psych affect normal Assessment & Plan Assessment/Plan (1) Sepsis: (2) Pneumonia: PLAN: Plan 1. Septic shock secondary to right sided community-acquired bacterial pneumonia from methicillin-resistant Staph aureus- patient will remain on IV antibiotics and aerosol treatments, patient is currently on oral prednisone #2 right sided community-acquired pneumonia from methicillin resistant Staph aureus-I have elected to continue the patient's present antibiotics. #3 acute hypoxic respiratory failure secondary to right-sided community-acquired pneumonia, septic shock, and chronic obstructive pulmonary disease-patient is currently on nasal cannula oxygen at this time, pulmonary medicine is participating in his care #4 chronic obstructive pulmonary disease-patient is currently on prednisone and aerosol treatments #5 paroxysmal atrial fibrillation-patient is currently on Xarelto and rate limiting medication #6 hypothyroidism-patient is on Synthroid Total clinical time spent by myself addressing the patient's medical issues, reviewing all of his data, and collaborating with patient's care team: 35 minutes Charges/Coding Visit Charges Inpatient E&M: 52267 Subs Hosp L2
[2024-07-05 15:47] LABS: Bedside Glucose 166 mg/dL (74-106)
[2024-07-05 18:59] LABS: Vancomycin, Trough Level 22.7 ug/mL (5.0-15.0)
--- NOTE | 2024-07-05 20:20 | PCM.RX.CS ---
Consult Antibiotic Management Pharmacy has been consulted to manage selected antibiotic: Vancomycin Type of Intervention Type of Consult: Follow-up Suspected Infection Suspected Infection: Pneumonia Labs Labs: Sodium 142 mmol/L (136-145) 07/03/24 04:50 Potassium 3.8 mmol/L (3.5-5.1) 07/03/24 04:50 Chloride 112 mmol/L (98-107) H 07/03/24 04:50 Carbon Dioxide 25.0 mmol/L (21.0-32.0) 07/03/24 04:50 Anion Gap 6 (5-15) 07/03/24 04:50 BUN 17 mg/dL (7-18) 07/03/24 04:50 Creatinine 0.85 mg/dL (0.70-1.30) 07/03/24 04:50 Est GFR (MDRD) Af Amer 111 mL/min (>60) 07/03/24 04:50 Est GFR (MDRD) Non-Af 92 mL/min (>60) 07/03/24 04:50 BUN/Creatinine Ratio 19.9 RATIO (10-20) 07/03/24 04:50 Glucose 238 mg/dL (74-106) H 07/03/24 04:50 Vancomycin Trough 22.7 ug/mL (5.0-15.0) H 07/05/24 18:10 Random Vancomycin 14.2 ug/mL (0.0-15.0) 07/04/24 05:58 Microbiology Microbiology: Microbiology 07/02/24 07:00 Sputum, Induced/Lukens Gram Stain - Final 07/02/24 07:00 Sputum, Induced/Lukens Respiratory Culture - Final Meth. resistant Staph. aureus 07/02/24 06:30 Urine Catheter - Miles Urine Culture - Final Presumptive C albicans 07/02/24 06:00 Blood Culture (Wb) - Anticubital Left Blood Culture - Preliminary No growth in 48 hours. 07/02/24 05:55 Blood Culture (Wb) - Anticubital Right Blood Culture - Preliminary No growth in 48 hours. 07/02/24 08:35 Nasal Secretion MRSA (PCR) - Final Meth. resistant Staph. aureus 07/02/24 06:30 Urine, Clean Catch Legionella Antigen - Final 07/02/24 06:30 Urine, Clean Catch Streptococcus pneumoniae Antigen (M - Final 07/02/24 06:30 Mucosa - Nasopharyngeal SARS-CoV-2, Influenza & RSV (PCR) - Final Dosing Weight Weight used for dosin kg Estimated Creatinine Clearance Estimated Creatinine Clearance: 87 Pharmacy Plan for Drug Dosing Pharmacy Plan for Drug Dosing: A vancomycin trough level was drawn 07/05 @1810 and was high at 22.7. The previous dose, however, had been hung 3.5hrs late, so the level was unable to be functionally interpreted. The timing of further doses was adjusted and a new trough level order was placed for 07/06/24 @0730. Pharmacy Service will continue to monitor and adjust dosing as required. Follow-Up Labs Follow-Up Labs: Trough: Vancomycin Date/Time Labs Ordered Labs to be done on [date and time ordered]: 07/06/24 @0730
--- NOTE | 2024-07-05 21:00 | CPS ---
Patient brought in own PAP machine for night time use.
[2024-07-05] MEDS: Rivaroxaban 20 MG Tablet GT (22:45)
[2024-07-05] MEDS: Acetaminophen 325 MG Tablet 650 MG GT (22:46)
[2024-07-06] VITALS (7 sets, daily range): BP systolic 114–140; BP diastolic 54–70; PULSE 58–63; RESP 16–18; TEMP 36.6–36.9; O2SAT 90–96; BMI 32.8
[2024-07-06 00:23] LABS: Bedside Glucose 156 mg/dL (74-106)
[2024-07-06] MEDS: Piperacil/Tazobactam 3.375 GM in 0.9% Normal Saline (50mL MB+) 50 ML IV ×2 (05:53→13:28)
[2024-07-06] MEDS: Levothyroxine 88 MCG Tablet GT (05:55)
[2024-07-06 06:34] LABS: Bedside Glucose 114 mg/dL (74-106)
[2024-07-06] MEDS: Ipratropium/Albuterol Sulfate 3 ML AMPUL.NEB INHALATION (06:48)
[2024-07-06 08:22] LABS: Vancomycin, Trough Level 21.8 ug/mL (5.0-15.0)
--- NOTE | 2024-07-06 08:40 | WOUNDNOTE ---
In to reassess the stoma to the right lower abdomen. Pt states the appliance is due to be changed. pt states the NH had been doing teaching with patient and prior to admission to the hospital. pt wanted this nurse to change appliance with pt this am. removed the appliance. there was a moderated amount of unformed stool in the appliance. peristomal skin is intact. stoma is dark pink and well budded. stoma is slightly oval in shape. cleansed the peristomal skin with warm water. pat dry. applied a 1 piece flat Coloplast appliance with a paste ring. pt tolerated well. pt states plan is for discharge home and will have home health care assisting with further ostomy education.
--- NOTE | 2024-07-06 08:46 | PCM.RX.CS ---
Consult Antibiotic Management Pharmacy has been consulted to manage selected antibiotic: Vancomycin Type of Intervention Type of Consult: Follow-up Suspected Infection Suspected Infection: Pneumonia Labs Labs: Sodium 142 mmol/L (136-145) 07/03/24 04:50 Potassium 3.8 mmol/L (3.5-5.1) 07/03/24 04:50 Chloride 112 mmol/L (98-107) H 07/03/24 04:50 Carbon Dioxide 25.0 mmol/L (21.0-32.0) 07/03/24 04:50 Anion Gap 6 (5-15) 07/03/24 04:50 BUN 17 mg/dL (7-18) 07/03/24 04:50 Creatinine 0.85 mg/dL (0.70-1.30) 07/03/24 04:50 Est GFR (MDRD) Af Amer 111 mL/min (>60) 07/03/24 04:50 Est GFR (MDRD) Non-Af 92 mL/min (>60) 07/03/24 04:50 BUN/Creatinine Ratio 19.9 RATIO (10-20) 07/03/24 04:50 Glucose 238 mg/dL (74-106) H 07/03/24 04:50 Vancomycin Trough 21.8 ug/mL (5.0-15.0) H 07/06/24 07:27 Random Vancomycin 14.2 ug/mL (0.0-15.0) 07/04/24 05:58 Microbiology Microbiology: Microbiology 07/02/24 07:00 Sputum, Induced/Lukens Gram Stain - Final 07/02/24 07:00 Sputum, Induced/Lukens Respiratory Culture - Final Meth. resistant Staph. aureus 07/02/24 06:30 Urine Catheter - Miles Urine Culture - Final Presumptive C albicans 07/02/24 06:00 Blood Culture (Wb) - Anticubital Left Blood Culture - Preliminary No growth in 48 hours. 07/02/24 05:55 Blood Culture (Wb) - Anticubital Right Blood Culture - Preliminary No growth in 48 hours. 07/02/24 08:35 Nasal Secretion MRSA (PCR) - Final Meth. resistant Staph. aureus 07/02/24 06:30 Urine, Clean Catch Legionella Antigen - Final 07/02/24 06:30 Urine, Clean Catch Streptococcus pneumoniae Antigen (M - Final 07/02/24 06:30 Mucosa - Nasopharyngeal SARS-CoV-2, Influenza & RSV (PCR) - Final Pharmacy Plan for Drug Dosing Pharmacy Plan for Drug Dosing: VANCOMYCIN LEVEL RECEIVED Current Vancomycin Dose: 1500MG Q12 Number of Doses Received: 7 Vancomycin Level: 21.8 MG/DL Hours Since Last Dose: 11.5 Renal Function: SCR 0.85 MG/DL, CrCl 86 mL/min (based on SCr from 07/03 Renal Function Trend: unknown, will order new scr with trough Lab/Micro: MRSA in sputum cx Vancomycin Plan/Comments: 11.5 hour trough is slightly supratherapeutic (goal 15-20). Will hold dosing for now and get a random level in 8 hours. Pending Level: 07/06/24 @ 9110 Pharmacy Service will continue to monitor and adjust dosing as required.
[2024-07-06] MEDS: Gabapentin 600 MG Tablet PO ×2 (09:47→13:28)
[2024-07-06] MEDS: Pantoprazole Sodium 40 MG Tablet PO (09:48)
[2024-07-06] MEDS: Nystatin Powder 15gm Bottle 1 APPLIC TOPICAL (09:48)
[2024-07-06] MEDS: predniSONE 20 MG Tablet 40 MG PO (09:48)
[2024-07-06 10:44] LABS: Anion Gap 5 (5-15); BUN 24 mg/dL (7-18); BUN/Creat Ratio 36.8 RATIO (10-20); Chloride 114 mmol/L (98-107); Creatinine, Serum 0.65 mg/dL (0.70-1.30); EST Glomerular Filtration Rate 125 mL/min (>60); Est Glom Filt Rate - Afr Amer 151 mL/min (>60); Estimated Creatinine Clearance 93.74 ml/min; Glucose 112 mg/dL (74-106); Potassium 3.8 mmol/L (3.5-5.1); Sodium Level 144 mmol/L (136-145)
--- NOTE | 2024-07-06 11:05 | CASEMGMT ---
Addendum entered by Maria Fernanda Ray 07/06/24 16:59: Per and pt, Jenifer had sent pt to his pain management doctor who had prescribed buprenorphine for pt and she is not sure what pharmacy carries. Spoke w/Dr Restrepo who states he will not be discharging pt home on this, as he has not been taking it while @ [facility]. Pt made aware of this. Dr Restrepo called pt's and spoke to her about this as well and notified her of same. Addendum entered by Maria Fernanda Ray 07/06/24 16:48: ISIAH TODD spoke w/Lottie @ [facility] this AM @ 0900. Per Lottie, they were not awaiting insurance approval for portable O2, rather they were awaiting arrival of POC, stating they do not have any in stock. She states they have an order on file from Dr Calle that is for O2 @ 2 L/M while awake, that was being set up from [facility] for the POC, but states she would need an order for portable gaseous tanks @ dc, if pt qualifies for home O2 and then they can provide portable tank for pt to discharge home on today. Home O2 testing has been completed on RA. Pt does not qualify for home O2 @ rest or w/exertion. He is aware and states is pleased with this. [employer] was also made aware. Reviewed Rx's with and then with pt that have been sent to [facility] pharmacy. Per pt, he has the nebulizer txs', gabapentin, levoythyroxine, tamsulosin, and xarelto @ home and will not need to get these today. Pt did confirm he needs pantoprazole, nystatin, prednisone, and linezolid. Haja, pharmacist, made aware. He will call to get payment and then meds to be delivered to pt's room. Pt voices appreciation. Original Note: RN CM STATION GATEMAN CM?to room to compete assessment. RN CM?introduced self and role at [facility]. Pt voices understanding and consents to assessment?at this time. Pt resting in bed in no distress at this time. Pt is A/O at this time and answers all questions appropriately. While RN CM in room, pt's called pt. He placed her on speaker phone and the following information obtained from both pt and . Care providers, pharmacy, and demographics verified/updated at this time. Strata:?3 PCP: Dr Carmen Zuleta in [place]. Specialists: Dr Rosa-manufacturing team member @ [facility]. Custom Grinder and orthopedic doctor @ [facility]. Pain mgnt in [place]. Oncology team @ [facility]. Urologist @ [facility]. Preferred Pharmacy: [facility] @ [place]. Otherwise goes to [facility] in [place]. Insurance: [facility], AARP Prescription Benefit: yes LNOK: , Armida Living Arrangements: Pt has been @ [facility] for ~ past 4 months. Prior to that, pt was home w/ in one-story home w/no steps to enter and one threshold step w/in the home that pt states he can navigate well. Transportation:?Both pt and drive. DME: Has the following DME: lift chair, adjustable bed, toilet siderails, walker, cane, shower chair, walk-in tub, pulse ox, nebulizer ,O2 through [facility] @ . Has concentrator, not portability. Pt and state no need for further DME at this time. New Colostomy: has brought in some of the colostomy supplies that [facility] gave them. Pt and state they have had some training re: colostomy @ [facility]. Lela, ostomy nurse, has also educated pt while @ [facility]. states she has a good understanding of the care, but states is not sure how each of the pieces/supplies all go together that they have. RNGuadalupe, aware and also Lela aware and state they will review this with when she comes in today to take pt home to make sure she is comfortable with this. Per Lela, pt has sufficient amt of ostomy supplies @ home until HHC can do SOC and they will order further supplies. HHC/SNF: Pt has had HHC in the past, he thinks through [facility]. He also has hx of Joo Acevedo and has been @ [facility] for ~ past 4 months. [facility] has accepted pt. Pt wishes to return home and states has no concerns with going home at time of discharge. Pt states does not smoke or drink ETOH. CM?to follow for home oxygen needs and any further discharge planning/needs. Pt voices no further concerns/needs at this time. Advised pt to ask for CM?if any further questions/concerns/needs arise. Voices understanding. PLAN: Home w/spousal support and [facility]. Keri DANGELO RN CM
[2024-07-06 12:39] LABS: Bedside Glucose 148 mg/dL (74-106)
--- NOTE | 2024-07-06 13:49 | PCM.DC ---
Discharge Instructions Diet Discharge Diet: No restrictions DC O2, CPAP, BIPAP needs RN Home O2 Qualification: Home O2 Qualification: Is the patient on home oxygen No 07/06/24 11:30 Home O2 Qualification: AT REST 1- Pulse Ox at rest 92 07/06/24 11:30 Home O2 Qualification: WITH AMBULATION 1- Pulse Ox with ambulation 94 07/06/24 11:30 1- Oxygen Flow Rate with 0 07/06/24 11:30 ambulation PSN CPAP & BiPAP: BiPAP & CPAP Settings per PSN Mode CPAP 07/05/24 04:05 Bipap Delivery Device Nasal Pillows 07/05/24 04:05 BiPAP Expiratory Pressure 5 07/05/24 04:05 Fraction of Inspired Oxygen ( 40 07/03/24 08:00 FIO2) Total Flow Rate 3 07/05/24 04:05 Home O2 Discharge instructions: No Dressing / Incision Discharge Activity: Return to Normal Activity Weight Bearing Status: Full weight bearing Follow Up Care Test Results: Test results from this visit will be discussed in further detail at your follow-up appointment, if applicable. Discharge Plan Admission Admit Date/Time: 07/02/24 07:48 Primary Reason for Your Visit: Methicillin resistant staph pneumonia Attending Provider: Matt Restrepo Primary Care Provider: Carmen Zuleta Consulting Providers: Fransisco Clement; Matt Restrepo; Orlando Castaneda; Chetan Arreaga; Seth Berg; Raman Hoyos; Rios Green; Carter Yi; Nahid Mtz; Raysa Vee; Mihai Parr; Margarito Randle; Pepe Dhillon; Clarissa Espinal; Anson Munoz; Armani,Mal; Maldonado,Suhas; Sanjiv,Daren; Gris,oGdwin; Romulo Alarcon; Iftikhar Fitzgerald; Luis F Carolina; Zackary Alaniz Discharge Orders/Prescriptions Prescriptions: New gabapentin 600 mg Tablet 600 mg PO 4X/DAY Qty: 120 0RF ipratropium-albuterol 0.5 mg-3 mg(2.5 mg base)/3 mL Solution For Nebulization 3 ml inhalation Q4H PRN (Reason: shortness of breath or wheezing) Qty: 120 0RF levothyroxine 88 mcg Tablet 88 mcg PO DAILY@0600 Qty: 30 0RF pantoprazole 40 mg Tablet,Delayed Release (Dr/Ec) 40 mg PO DAILY Qty: 30 0RF nystatin [Nyamyc] 100,000 unit/gram Powder 1 applic topical BID Qty: 1 0RF prednisone 20 mg Tablet 40 mg PO BREAKFAST Qty: 9 0RF Rx Instructions: 1 twice a day for 3 days, then 1/day for 3 days then discontinue tamsulosin 0.4 mg Capsule 0.8 mg PO QHS Qty: 60 0RF Xarelto 20 mg Tablet 20 mg PO QHS Qty: 30 0RF linezolid [Zyvox] 600 mg tablet 600 mg PO BID Qty: 11 0RF Continued acetaminophen 500 mg capsule 1,000 mg PO Q8H Qty: 30 0RF Discontinued ipratropium-albuterol 0.5 mg-3 mg(2.5 mg base)/3 mL solution for nebulization 3 ml inhalation Q4H PRN (Reason: shortness of breath or wheezing) polyvinyl alcohol-povidon(PF) 1.4-0.6 % dropperette 1 drp EACH EYE Q60M PRN (Reason: dry eye(s)) miconazole nitrate [Antifungal (miconazole)] 2 % powder 1 applic topical BID Patient Comments: groin gabapentin 600 mg tablet 600 mg PO 4X/DAY pantoprazole 40 mg tablet,delayed release (DR/EC) 40 mg PO DAILY tamsulosin 0.4 mg capsule 0.8 mg PO QHS metoprolol succinate 25 mg tablet extended release 24 hr 12.5 mg PO DAILY Xarelto 20 mg tablet 20 mg PO QHS levothyroxine 88 mcg tablet 88 mcg PO DAILY albuterol sulfate 2.5 mg /3 mL (0.083 %) Solution For Nebulization 2.5 mg inhalation Q2H PRN PRN (Reason: SOB &/OR WHEEZING) 30 Days Qty: 0 0RF guaifenesin [Mucus Relief ER] 1,200 mg Tablet Extended Release 12hr 1,200 mg PO BID 14 Days Qty: 0 0RF buprenorphine HCl [Belbuca] 300 mcg film 300 mcg buccal Q12H 5 Days Qty: 60 0RF potassium chloride [K-Tab] 20 mEq tablet extended release 40 meq PO DAILY Thera-M 27-0.4 mg tablet 1 tab PO DAILY furosemide [Lasix] 40 mg tablet 40 mg PO DAILY magnesium hydroxide [Milk of Magnesia] 400 mg/5 mL suspension 30 ml PO DAILY PRN (Reason: constipation) bisacodyl 10 mg suppository 10 mg [place] DAILY PRN (Reason: constipation) mineral oil [Fleet Mineral Oil] Enema 118 ml [place] DAILY PRN (Reason: constipation) Rx Instructions: discard any unused portion No Action lidocaine [Salonpas (lidocaine)] 4 % adhesive patch,medicated 4 patch topical Q24H Qty: 5 0RF Patient Comments: left & right knees, rt hip, neck Rx Instructions: may leave on for up to 12 hrs Referrals / Follow Up: Carmen Zuleta MD [Primary Care Provider] - Within 2 Weeks Primitivo Calle MD [Med Staff - Active Staff] - Disposition Disposition (needs filled in before D/C Order can be placed): Home, Self Care
--- NOTE | 2024-07-06 14:06 | PCM.DC.SUM ---
Providers Date of Admission: 07/02/24 Date of Discharge: 07/06/24 Primary Care Physician: Carmen Zuleta MD Consultations 07/02/24 09:49 Consult: Business Process Analyst / Pulmonary Medicine Routine Consulting Provider: Intensivists/Pulmonary Med Reason for Consult: Acute respiratory failure EMERGENT Consult: Yes MD Notified: Yes Date Notified: 07/02/24 Time Notified: 07:56 Method of Notification: Answering Service 07/02/24 18:11 Consult: Onc/Wound/thermostat mechanic Routine Comment: Reason for Consult:: RLQ ostomy Reason For Visit: ACUTE RESPIRATORY FAILURE Diagnosis Discharge Diagnosis (1) Sepsis: Status: Acute Code(s): A41.9 - Sepsis, unspecified organism (2) Pneumonia: Status: Acute Code(s): J18.9 - Pneumonia, unspecified organism Plan 1. Septic shock secondary to right sided community-acquired bacterial pneumonia from methicillin-resistant Staph aureus- patient will remain on IV antibiotics and aerosol treatments, patient is currently on oral prednisone #2 right sided community-acquired pneumonia from methicillin resistant Staph aureus-I have elected to continue the patient's present antibiotics. #3 acute hypoxic respiratory failure secondary to right-sided community-acquired pneumonia, septic shock, and chronic obstructive pulmonary disease-patient is currently on nasal cannula oxygen at this time, pulmonary medicine is participating in his care #4 chronic obstructive pulmonary disease-patient is currently on prednisone and aerosol treatments #5 paroxysmal atrial fibrillation-patient is currently on Xarelto and rate limiting medication #6 hypothyroidism-patient is on Synthroid Total clinical time spent by myself addressing the patient's medical issues, reviewing all of his data, and collaborating with patient's care team: 35 minutes Medications at Discharge Home Medications acetaminophen 500 mg capsule 1,000 mg (2 x 500 mg) PO Q8H pain #30 caps 05/21/24 lidocaine 4 % topical patch (Salonpas (lidocaine)) 4 patch topical Q24H pain #5 ea 05/21/24 gabapentin 600 mg tablet 600 mg PO 4X/DAY #120 tabs 07/06/24 ipratropium 0.5 mg-albuterol 3 mg (2.5 mg base)/3 mL nebulization soln 3 ml inhalation Q4H PRN shortness of breath or wheezing #120 mL 07/06/24 levothyroxine 88 mcg tablet 88 mcg PO DAILY@0600 #30 tabs 07/06/24 linezolid 600 mg tablet (Zyvox) 600 mg PO BID #11 tabs 07/06/24 nystatin 100,000 unit/gram topical powder (Nyamyc) 1 applic topical BID #1 BOTTLE 07/06/24 pantoprazole 40 mg tablet,delayed release 40 mg PO DAILY #30 tabs 07/06/24 prednisone 20 mg tablet 40 mg (2 x 20 mg) PO BREAKFAST #9 tabs 07/06/24 rivaroxaban 20 mg tablet (Xarelto) 20 mg PO QHS #30 tabs 07/06/24 tamsulosin 0.4 mg capsule 0.8 mg (2 x 0.4 mg) PO QHS #60 caps 07/06/24 Hospital Course Operations None Procedures None Summary of Care Provided Minutes Spent on Discharge: 32 Hospital Course: This 79-year-old white male was seen in the emergency room at [facility] after being brought in from a local extended care facility on continuous CPAP complaining of shortness of breath. [facility] On arrival to the emergency room, he was in obvious respiratory distress and was hypoxic on CPAP, patient underwent emergent intubation and labs were obtained, white blood cell count was 13.4, lactic acid was elevated at 4.6, urinalysis showed greater than 100 white cells with +1 bacteria there is noted to be right sided infiltrates on his chest x-ray. Patient was admitted to ICU for septic shock due to right sided community-acquired pneumonia, he was maintained on IV antibiotics and seen by critical care. Patient improved during his ICU stay and he was extubated and ultimately transferred to PCU. Sputum cultures obtained were positive for MRSA. Patient continued to improve during his hospitalization and was weaned off oxygen. Patient made the decision to go home rather than go back to his extended care facility for further care. On 07/06/2024, patient was seen and examined: On examination he appeared in good health and spirits. Vital signs as documented. Skin warm and dry and without overt rashes. Neck without JVD, neck was supple, trachea midline, thyroid was normal. Lungs clear bilaterally, normal air movement was noted. Heart exam notable for regular rhythm, normal sounds and absence of murmurs, rubs or gallops. Abdomen unremarkable and without evidence of organomegaly, masses, or abdominal aortic enlargement. Bowel sounds are present, abdomen is not distended. Extremities nonedematous, no cyanosis was noted, no clubbing was noted. Neuro: Cranial nerves II through XII are grossly intact, no focal motor deficits were noted, sensation to light touch and pinprick intact, motor exam 5/5 throughout. Psych: Patient is alert and oriented x3, he does not appear anxious or depressed, he does not appear agitated. Patient was felt to be in stable condition for discharge home on 07/06/2024 Weight / BMI Weight Weight: 112.4 kg Body Mass Index (BMI) 32.8 ABG / Lab / Microbiology Data 07/03/24 04:50 07/06/24 09:35 Laboratory: Laboratory Results - last 24 hr 07/05/24 15:25: POC Glucose 166 H 07/05/24 18:10: Vancomycin Trough 22.7 H 07/05/24 22:44: POC Glucose 156 H 07/06/24 05:52: POC Glucose 114 H 07/06/24 07:27: Vancomycin Trough 21.8 H 07/06/24 09:35: Sodium 144, Potassium 3.8, Chloride 114 H, Carbon Dioxide 25.0, Anion Gap 5, BUN 24 H, Creatinine 0.65 L, Estim Creat Clear Calc 93.74, Est GFR (MDRD) Af Amer 151, Est GFR (MDRD) Non-Af 125, BUN/Creatinine Ratio 36.8 H, Glucose 112 H, Calcium 10.0 07/06/24 12:17: POC Glucose 148 H Microbiology: Microbiology 07/02/24 05:55 Blood Culture (Wb) - Anticubital Right Blood Culture - Final No growth in 5 days. 07/02/24 06:00 Blood Culture (Wb) - Anticubital Left Blood Culture - Final No growth in 5 days. 07/02/24 07:00 Sputum, Induced/[place]ukens Gram Stain - Final 07/02/24 07:00 Sputum, Induced/[place]ukens Respiratory Culture - Final Meth. resistant Staph. aureus 07/02/24 06:30 Urine Catheter - Miles Urine Culture - Final Presumptive C albicans 07/02/24 08:35 Nasal Secretion MRSA (PCR) - Final Meth. resistant Staph. aureus 07/02/24 06:30 Urine, Clean Catch Legionella Antigen - Final 07/02/24 06:30 Urine, Clean Catch Streptococcus pneumoniae Antigen (M - Final 07/02/24 06:30 Mucosa - Nasopharyngeal SARS-CoV-2, Influenza & RSV (PCR) - Final D/C Instructions Discharge Diet: No restrictions Weight Bearing Status: Full weight bearing DC O2, CPAP, BIPAP Needs RN Home O2 Qualification: Home O2 Qualification: Is the patient on home oxygen No 07/06/24 11:30 Home O2 Qualification: AT REST 1- Pulse Ox at rest 92 07/06/24 11:30 Home O2 Qualification: WITH AMBULATION 1- Pulse Ox with ambulation 94 07/06/24 11:30 1- Oxygen Flow Rate with 0 07/06/24 11:30 ambulation PSN CPAP & BiPAP: BiPAP & CPAP Settings per PSN Mode CPAP 07/05/24 04:05 Bipap Delivery Device Nasal Pillows 07/05/24 04:05 BiPAP Expiratory Pressure 5 07/05/24 04:05 Fraction of Inspired Oxygen ( 40 07/03/24 08:00 FIO2) Total Flow Rate 3 07/05/24 04:05 Home O2 Discharge instructions: No Meaningful Use Info Meaningful Use Meaningful Use Diagnoses (Choose all that apply): None applicable Ischemic Stroke Statin Dosing Therapy Reference: STATIN DOSE THERAPY REFERENCE: * Patients > 75 years receive moderate or high dose statin therapy. * Patients 75 years or YOUNGER should receive HIGH intensity statin dose unless contraindicated. You will be required to document reason for non-treatment if statin daily dose does not meet guidelines. HIGH DOSE STATIN THERAPY DAILY Atorvastatin > than or = to 40 mg Rosuvastatin > than or = to 20 mg Amlodipine + Atorvastatin > than or = to 2.5/40 mg Ezetimibe + Simvastatin 10/80 mg Simvastatin 80mg Discharge Plan Admission Admit Date/Time: 07/02/24 07:48 Primary Reason for Your Visit: Methicillin resistant staph pneumonia Attending Provider: Matt Restrepo Primary Care Provider: Carmen Zuleta Consulting Providers: Fransisco Clement; Matt Restrepo; Orlando Castaneda; Chetan Arreaga; Seth Berg; Raman Hoyos; Rios Green; Carter Yi; Nahid Mtz; Raysa Vee; Mihai Parr; Margarito Randle; Pepe Dhillon; Clarissa Espinal; Anson Munoz; Mal Lomeli; Suhas Okeefe; Daren Kincaid; Godwin Landry; Romulo Alarcon; Iftikhar Fitzgerald; Luis F Carolina; Zackary Alaniz Discharge Orders/Prescriptions Prescriptions: New gabapentin 600 mg Tablet 600 mg PO 4X/DAY Qty: 120 0RF ipratropium-albuterol 0.5 mg-3 mg(2.5 mg base)/3 mL Solution For Nebulization 3 ml inhalation Q4H PRN (Reason: shortness of breath or wheezing) Qty: 120 0RF levothyroxine 88 mcg Tablet 88 mcg PO DAILY@0600 Qty: 30 0RF pantoprazole 40 mg Tablet,Delayed Release (Dr/Ec) 40 mg PO DAILY Qty: 30 0RF nystatin [Nyamyc] 100,000 unit/gram Powder 1 applic topical BID Qty: 1 0RF prednisone 20 mg Tablet 40 mg PO BREAKFAST Qty: 9 0RF Rx Instructions: 1 twice a day for 3 days, then 1/day for 3 days then discontinue tamsulosin 0.4 mg Capsule 0.8 mg PO QHS Qty: 60 0RF Xarelto 20 mg Tablet 20 mg PO QHS Qty: 30 0RF linezolid [Zyvox] 600 mg tablet 600 mg PO BID Qty: 11 0RF Continued acetaminophen 500 mg capsule 1,000 mg PO Q8H Qty: 30 0RF Discontinued ipratropium-albuterol 0.5 mg-3 mg(2.5 mg base)/3 mL solution for nebulization 3 ml inhalation Q4H PRN (Reason: shortness of breath or wheezing) polyvinyl alcohol-povidon(PF) 1.4-0.6 % dropperette 1 drp EACH EYE Q60M PRN (Reason: dry eye(s)) miconazole nitrate [Antifungal (miconazole)] 2 % powder 1 applic topical BID Patient Comments: groin gabapentin 600 mg tablet 600 mg PO 4X/DAY pantoprazole 40 mg tablet,delayed release (DR/EC) 40 mg PO DAILY tamsulosin 0.4 mg capsule 0.8 mg PO QHS metoprolol succinate 25 mg tablet extended release 24 hr 12.5 mg PO DAILY Xarelto 20 mg tablet 20 mg PO QHS levothyroxine 88 mcg tablet 88 mcg PO DAILY albuterol sulfate 2.5 mg /3 mL (0.083 %) Solution For Nebulization 2.5 mg inhalation Q2H PRN PRN (Reason: SOB &/OR WHEEZING) 30 Days Qty: 0 0RF guaifenesin [Mucus Relief ER] 1,200 mg Tablet Extended Release 12hr 1,200 mg PO BID 14 Days Qty: 0 0RF buprenorphine HCl [Belbuca] 300 mcg film 300 mcg buccal Q12H 5 Days Qty: 60 0RF potassium chloride [K-Tab] 20 mEq tablet extended release 40 meq PO DAILY Thera-M 27-0.4 mg tablet 1 tab PO DAILY furosemide [Lasix] 40 mg tablet 40 mg PO DAILY magnesium hydroxide [Milk of Magnesia] 400 mg/5 mL suspension 30 ml PO DAILY PRN (Reason: constipation) bisacodyl 10 mg suppository 10 mg FL DAILY PRN (Reason: constipation) mineral oil [Fleet Mineral Oil] Enema 118 ml FL DAILY PRN (Reason: constipation) Rx Instructions: discard any unused portion No Action lidocaine [Salonpas (lidocaine)] 4 % adhesive patch,medicated 4 patch topical Q24H Qty: 5 0RF Patient Comments: left & right knees, rt hip, neck Rx Instructions: may leave on for up to 12 hrs Referrals / Follow Up: Carmen Zuleta MD [Primary Care Provider] - Within 2 Weeks (Office is closed until 07/07/24. Office should reach out within the next two to three business days, if they do not please call the office. Office will be closed 07/11/24 after noon and on 07/12/24) Primitivo Clale MD [Med Staff - Active Staff] - Disposition Disposition (needs filled in before D/C Order can be placed): Home Health Service Charges/Coding Visit Charges Inpatient E&M: 33557 Disch Hosp >30min
--- NOTE | 2024-07-06 14:17 | CASEMGMT ---
Discharge Planning Discharge Instructions sent to [facility].
--- NOTE | 2024-07-07 09:08 | CASEMGMT ---
Addendum entered by Maria Fernanda Ray 07/07/24 14:24: Call placed to [facility]. Dr Zuleta is willing to follow pt for C. Call placed to [facility]. SOC scheduled for 07/09. ISIAH TODD placed call to pt's . She states things went well w/appt w/Dr Zuleta. They have another f/u appt scheduled for 07/17 w/her. aware [facility] SOC scheduled for 07/09. She states they did get all medications needed @ discharge yesterday and Dr Zuleta is re-starting other maintenance medications pt was on previously. She states patient is doing well being back home. She denies having any further questions/concerns/needs. Addendum entered by Maria Fernanda Ray 07/07/24 10:10: ISIAH TODD spoke w/pt's , Armida, who states she will be able to take pt to appt w/Dr Zuleta this morning. Original Note: ISIAH TODD NOTE: Call placed to Dr Carmen Zuleta to inquire if she would be willing to follow pt for HHC. She states she would need to see pt first. She was made aware pt discharged home yesterday w/a new colostomy and inquired if she has any available appt's today. Appt scheduled for 11:45 AM today. Clinical information and discharge instructions/summary to be faxed to her @ [phone]. Call placed to pt and he was made aware of appt today w/Dr Zuleta @ 11:45 AM. [address] to [facility] and spoke w/Aiden. She was made aware of above. She states will have nurse, Melita, call this ISIAH TODD back to confirm SOC date. Keri DANGELO RN, CM
--- NOTE | 2024-07-07 09:17 | CASEMGMT ---
Discharge Planning Clinical information from prior 3 visits faxed to pts physician. Maryjane Srinivasan DC Planning Asst.
== END 2024-07-06 16:08 | disposition home health service (06) | DRG 871 ==
LOC: ED 08:16 → ICU 08:43 → PCU 07-03 18:28
PROVIDERS: Internal Medicine; Internal Medicine Pulmonary Disease; Admitting Provider Hospitalist; Emergency Provider Emergency Medicine; PCP Family Medicine; Referring Provider Hospitalist; Visit Provider Internal Medicine
DX: A41.9 Sepsis, unspecified organism (principal); J96.01 Acute respiratory failure with hypoxia; R65.21 Severe sepsis with septic shock; J15.212 Pneumonia due to Methicillin resistant Staphylococcus aureus; J44.0 Chronic obstructive pulmonary disease with (acute) lower respiratory infection; E11.9 Type 2 diabetes mellitus without complications; E03.9 Hypothyroidism, unspecified; I10 Essential (primary) hypertension; E66.811 Obesity, class 1; I48.0 Paroxysmal atrial fibrillation; Z93.3 Colostomy status; N40.1 Benign prostatic hyperplasia with lower urinary tract symptoms; Z86.73 Personal history of transient ischemic attack (TIA), and cerebral infarction without residual deficits; Z86.711 Personal history of pulmonary embolism; Z87.891 Personal history of nicotine dependence; Z68.32 Body mass index [BMI] 32.0-32.9, adult; Z79.01 Long term (current) use of anticoagulants
CPT/HCPCS: 31500; 31720; 36415; 36600; 51702; 71045; 71260; 74018; 74177; 74230; 80048; 80076; 80202; 81001; 82550; 82803; 82962; 83036; 83605; 83615; 83690; 83735; 83880; 84100; 84145; 84478; 84484; 85025; 85027; 85610; 85730; 87040; 87070; 87077; 87086; 87088; 87186; 87205; 87449; 87631; 87641; 92526; 92610; 92611; 93005; 94002; 94003; 94640; 94660; 94668; 94762; 97110; 97116; 97162; 97166; 97535; 97802; 97803; 99252; 99285; Q9967; A4216; G0463; J0696; J1940